=== PATIENT | male | born 1950 | race Caucasian/White ===

== ENCOUNTER 2019-11-15 11:17 | Inpatient (IN) | payer OTHER, SELFPAY ==
[2019-11-15] VITALS (18 sets, daily range): BP systolic 126–179; BP diastolic 65–85; PULSE 70–104; RESP 16–18; TEMP 36.6–36.7; O2SAT 96–98; BMI 25.2
--- NOTE | 2019-11-15 11:36 | DI.US.S_ITS ---
PROCEDURE: US PERIPH VENOUS LOW EXTREM LT INDICATIONS: LEFT LEG SWELLING TECHNIQUE: Real-time imaging, as well as color and pulse Doppler interrogation, were performed of the lower extremity deep veins from the inguinal ligament to the popliteal fossa. COMPARISON: [facility], , [employer], 12/15/2011, 11:23. FINDINGS: The common femoral, femoral and popliteal veins are normally compressible, and free of intraluminal thrombus. Color and pulse Doppler demonstrate normal phasic intraluminal flow. There is normal augmentation response to distal compression maneuver. Note is made of marked soft tissue edema. IMPRESSION: No DVT in the left lower extremity. Dictated by: Karuna Gunderson M.D. on 11/15/2019 at 12:31 Approved by: Karuna Gunderson M.D. on 11/15/2019 at 12:40
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
[2019-11-15 11:55] LABS: Add Manual Diff / Slide Review NO; Basophils Absolute Auto 0 /uL (0-100); Basophils Percent Auto 0.4 % (0-2); Eosinophils Absolute Auto 0 /uL (0-450); Eosinophils Percent Auto 0.5 % (2-4); Hematocrit 38.2 % (41-53); Hemoglobin 13.1 g/dL (13.5-17.5); Lymphocytes Absolute Auto 1600 /uL (1100-4500); Lymphocytes Percent Auto 17.9 % (25-40); Mean Corpuscular HGB Conc 34.3 % (30-36); Mean Corpuscular Hemoglobin 34.2 PG (26-34); Mean Corpuscular Volume 99.7 fL (80-100); Monocytes Absolute Auto 1600 /uL (0-900); Monocytes Percent Auto 17.6 % (3-14); Neutrophils Absolute Auto 5700 /uL (1500-7000); Neutrophils Percent Auto 63.6 % (50-75); Platelet Count 148 X10^3/uL (150-400); Red Blood Cell Count 3.83 X10^6/uL (4.5-5.9); Red Cell Distribution Width 12.9 % (11.6-14.8)
[2019-11-15 11:57] LABS: Alanine Aminotransferase 25 IU/L (<50); Albumin 3.8 g/dL (3.5-5.0); Albumin Globulin Ratio 1.1 (1.0-2.8); Alkaline Phosphatase 111 U/L (38-126); Aspartate Aminotransferase 47 IU/L (17-59); BUN Creatinine Ratio 15.1 (6-22); Bilirubin Total 0.7 mg/dL (0.2-1.3); Blood Urea Nitrogen 11 mg/dL (9-20); Calcium 9.4 mg/dL (8.4-10.2); Carbon Dioxide 24 mmol/L (22-32); Chloride 96 mmol/L (98-107); Estimated Glomerular Filt Rate > 60.0 mL/min (>60); Globulin 3.4 g/dL (1.7-4.1); Glucose 127 mg/dL (80-110); HEMOLYSIS < 15 (0-50); Lactate (Lactic Acid) 2.2 mmol/L (0.7-2.1); Sodium 128 mmol/L (137-145); Total Protein 7.2 g/dL (6.3-8.2)
[2019-11-15] MEDS: SODIUM CHLORIDE 0.9% 1,000 ML 1000 ML IV (12:01)
[2019-11-15] MEDS: VANCOMYCIN 1,500 MG/300 ML FROZ.PIGGY 200 MG IV (12:02)
[2019-11-15 12:17] LABS: Procalcitonin 0.27 ng/mL (<0.5)
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
[2019-11-15 13:41] LABS: Reflexed Lactate in 2 Hours Y
[2019-11-15 14:51] LABS: Lactate 2HR (Lactic Acid Rflx) 1.1 mmol/L (0.7-2.1)
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
[2019-11-15] MEDS: DEXTROSE 5%-LACTATED RINGERS 1,000 ML 100 ML IV (18:54)
[2019-11-15] MEDS: CEFTRIAXONE 2 GM/50 ML FROZ.PIGGY IV (18:54)
[2019-11-16] VITALS (13 sets, daily range): BP systolic 149–165; BP diastolic 79–92; PULSE 71–81; RESP 16–19; TEMP 35.9–37.1; O2SAT 96–98
[2019-11-16] MEDS: DEXTROSE 5%-LACTATED RINGERS 1,000 ML 100 ML IV (05:16)
[2019-11-16 06:29] LABS: Bacteria Urine None Seen; RBC Urine None Seen (0-5/HPF); WBC Urine None Seen (0-5/HPF)
[2019-11-16 06:41] LABS: Appearance Urine UA CLEAR; Bilirubin Urine UA NEGATIVE (NEGATIVE); Color Urine UA YELLOW; Glucose Urine UA NEGATIVE (Negative); Ketones Urine UA NEGATIVE (NEGATIVE); Leukocyte Esterase Urine UA NEGATIVE (NEGATIVE); Nitrite Urine UA NEGATIVE (Negative); Occult Blood Urine UA NEGATIVE (Negative); Protein Urine UA NEGATIVE (Negative)
[2019-11-16 06:46] LABS: Culture Indicated Urine Cult Not Indicated; Urine Comments Microscopic Normal
[2019-11-16] MEDS: ENOXAPARIN 40 MG/0.4 ML SYRINGE SUBCUT (09:18)
[2019-11-16] MEDS: lisinopriL 20 MG TABLET 40 MG PO (09:18)
--- NOTE | 2019-11-16 11:03 | CM.DANOTE ---
Patient is a 68 year old male who was admitted on 11/15/19 for Swollen leg. Pt has [facility] for insurance and his PCP is not listed. EMR was reviewed. Per MD, pt with a hx of arm amputation, skin graft, and blindness from his service in the in [place]. Pt currently admitted for cellulitis and on IV-Abx with some progress in redness but now has some leg swelling. SW met bedside with pt and explained role and pt confirms that he lives at home in [place] with his and is independent with ADL's at baseline and does not use equipment to ambulate other than his white cane he uses due to being blind. Pt's spouse drives and provides assist when needed with chores/shopping/meds but pt quite active and independent. Pt has a hx of cellulitis but not for about 8 years. Pt denies any hx of SNF and his is his DPOA. Pt preference is home with assist once IV-Abx can be changed to orals. Per MD, anticipate possible d/c tomorrow on oral abx if medically stable but some concern in regards to potential new leg swelling. Plan: SW to follow closely later today when spouse bedside and MD will further discuss current leg swelling to determine if concerning or more patient's baseline towards plan of home with spouse when medically stable. SW to follow for any further identified discharge planning needs. MENDEL Astudillo Discharge Planning/Care Management CM Discharge Assessment Start: 11/16/19 11:01 Freq: Status: Active Protocol: Document 11/16/19 11:01 (Rec: 11/16/19 11:03 [id number]) Discharge Planning Assessment Assigned Piano Refinisher MENDEL Boggs DPOA/Assigned Designee Name spouse Alondra Contact Information [phone] Advance Directives? No Advance Directives on File No History Provided By Patient,Medical Record Has Patient been admitted in last 30 No days? Prior Living Arrangements House Household Members significant other Type of transporation used prior to Relies on Others admit Comment Spouse drives as pt is legally blind Independent with ADL's Yes Is patient alert and oriented? Yes Needs Assistance With Managing Medications,Home Chores / Shopping Caregiver for Another No DME Already Rented / Owned Cane Comment White cane for ambulation due to blindness Barriers to Discharge No Discharge Plan Home Transportation Arrangement Spouse will be bedside later today and available for transport when pt stable for d /c. Referrals Initiated None needed Review Status In Process Please Provide Date Initial DC 11/16/19 Assessment Was Performed Next Review Type Continued Stay Review
--- NOTE | 2019-11-16 12:21 | P.PN_ITS ---
Subjective Subjective Date Patient Seen: 11/16/19 Interval history: Patient reports pain in the leg has improved. He continues to have significant swelling in the left lower extremity. He indicates that this is acute related to his cellulitis and that typically he does not have the same degree of swelling as he does now. He has had no fever or chills. He has had no diarrhea. The redness along the left leg has improved. Exam Vital Signs (past 8 hours): - 11/16/19 05:03 11/16/19 06:00 11/16/19 07:35 Temperature 96.6 F L 97.2 F L Pulse Rate 72 71 Respiratory Rate 18 16 Blood Pressure 159/86 H 163/90 H Pulse Oximetry 96 96 96 11/16/19 09:05 11/16/19 09:18 11/16/19 11:00 Temperature 98.7 F Pulse Rate 75 Respiratory Rate 16 Blood Pressure 163/90 H 156/92 H Pulse Oximetry 96 98 Oxygen Delivery Method Room Air Oxygen Flow Rate 0 Narrative Exam Narrative: Pleasant gentleman in no obvious distress Lungs: Clear to auscultation Cardiac exam: Regular rate and rhythm normal S1-S2 Abdomen: Soft nontender nondistended Left lower extremity with 3+ pitting edema compared to the right Skin exam decreased erythema, warmth still on the left anterior rodriges, and lateral thigh, less indurated today than yesterday. Objective Labs Result Diagrams: 11/15/19 11:30 11/15/19 11:30 Labs: Laboratory Results - last 24 hr 11/15/19 11/16/19 14:20 06:10 Lactate 1.1 Urine Color Yellow Urine Appearance Clear Urine pH 7.0 Ur Specific [place] 1.010 Urine Protein Negative Urine Glucose (UA) Negative Urine Ketones Negative Urine Occult Blood Negative Urine Nitrate Negative Urine Bilirubin Negative Urine Urobilinogen 2.0 H Ur Leukocyte Esterase Negative Urine RBC None seen Urine WBC None seen Urine Bacteria None seen Ur Culture Indicated? Cult not indicated Micro UA Comment Microscopic normal Assessment & Plan Assessment & Plan narrative: Impression 1. 68-year-old male admitted to the hospital with left lower extremity cellulitis -patient presented with an initial lactate of 2, repeat lactate of 1, no ot her end-organ damage to suggest severe sepsis -patient continues on vancomycin and ceftriaxone which is improving they cellulitis -ultrasound of the left lower extremity negative for DVT -will continue leg elevation 2. Hypertension -will continue lysine -patient indicates he is on Cardizem will obtain correct dosing and adjust accordingly 3. Hyponatremia, present on admission -without prior sodium levels unclear whether this is acute or chronic -will obtain serum osmolality, Hep-Lock IV fluids, repeat sodium in the morning, consider fluid restriction if hypotonic hyponatremia is found 4. 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 Will continue DVT prophylaxis
[2019-11-16] MEDS: SODIUM CHLORIDE 0.9% FLUSH 10 ML IV (18:38)
[2019-11-16] MEDS: CEFTRIAXONE 2 GM/50 ML FROZ.PIGGY IV (18:38)
[2019-11-16] MEDS: dilTIAZem CD 120 MG CAP PO (18:43)
[2019-11-17] VITALS (7 sets, daily range): BP systolic 149–162; BP diastolic 76–90; PULSE 69–90; RESP 16–18; TEMP 36.3–36.8; O2SAT 94–97
[2019-11-17 06:26] LABS: BUN Creatinine Ratio 11.9 (6-22); Blood Urea Nitrogen 7 mg/dL (9-20); Calcium 9.5 mg/dL (8.4-10.2); Carbon Dioxide 29 mmol/L (22-32); Chloride 98 mmol/L (98-107); Estimated Glomerular Filt Rate > 60.0 mL/min (>60); Glucose 101 mg/dL (80-110); HEMOLYSIS < 15 (0-50); Potassium 4.3 mmol/L (3.4-5.1); Sodium 132 mmol/L (137-145)
[2019-11-17 06:45] LABS: Acinetobacter baumannii Not Detected (Not Detect); Candida albicans Not Detected (Not Detect); Candida glabrata Not Detected (Not Detect); Candida krusei Not Detected (Not Detect); Candida parapsilosis Not Detected (Not Detect); Candida tropicalis Not Detected (Not Detect); E. coli Not Detected (Not Detect); Enterobacter cloacae complex Not Detected (Not Detect); Enterobacteriaceae species Not Detected (Not Detect); Enterococcus species Not Detected (Not Detect); Haemophilus influenzae Not Detected (Not Detect); Listeria monocytogenes Not Detected (Not Detect); Neisseria meningitidis Not Detected (Not Detect); Proteus species Not Detected (Not Detect); Pseudomonas aeruginosa Not Detected (Not Detect); Serratia marcescens Not Detected (Not Detect); Staphylococcus species Not Detected (Not Detect); Streptococcus agalactiae (Gr B Not Detected (Not Detect); Streptococcus pneumonia Not Detected (Not Detect); Streptococcus pyogenes (Gr A) Not Detected (Not Detect); Streptococcus species Not Detected (Not Detect)
--- NOTE | 2019-11-17 06:53 | PC.NURSE ---
anerobic gram variable rods - lab notes possible contamination. Reported to WINSTON Cade. No new orders.
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
[2019-11-17] MEDS: dilTIAZem CD 120 MG CAP PO (08:46)
[2019-11-17] MEDS: ENOXAPARIN 40 MG/0.4 ML SYRINGE SUBCUT (08:46)
[2019-11-17] MEDS: lisinopriL 20 MG TABLET 40 MG PO (08:46)
--- NOTE | 2019-11-17 11:47 | PC.NURSE ---
Pt is dressed and ready for discharge home with Spouse Alondra. IV has been removed. Went over d/c instructions with Pt and Spouse-discussed d/c meds, time of last dose, reviewed stroke education, and low sodium/low fat diet. Pt and Spouse deny further questions and were taken out via w/c by [facility] to pov with all belongings.
[2019-11-18 15:34] LABS: Osmolality, Serum 268 mOsmol/kg (280-301)
== END 2019-11-17 11:49 | disposition home or self-care (01) | DRG 603 ==
LOC: ED 14:33 → AC 15:37
PROVIDERS: Admitting Provider Internal Medicine; Emergency Provider Nurse Practitioner; Referring Provider Nurse Practitioner; Visit Provider Internal Medicine
DX: L03.116 Cellulitis of left lower limb (principal); E87.1 Hypo-osmolality and hyponatremia; H54.3 Unqualified visual loss, both eyes; I10 Essential (primary) hypertension; R60.0 Localized edema; Z89.202 Acquired absence of left upper limb, unspecified level; Z87.891 Personal history of nicotine dependence
CPT/HCPCS: 36415; 36592; 80048; 80053; 81001; 83605; 83930; 84145; 85025; 87040; 87077; 87150; 87205; 93971; 96365; 96366; 99284; J0696; J1650; J7121

== ENCOUNTER → 2020-10-16 14:45 | Outpatient (CLI) | payer MEDICARE, OTHER, SELFPAY ==
[2019-11-15 16:28] VITALS: BMI 25.2
[2020-10-16] MEDS: COVID-19 VACC, Ad26(JANSSEN)/PF 0.5 ML IM (14:52)
== END ==
PROVIDERS: Visit Provider Internal Medicine
DX: Z23 Encounter for immunization (principal)
CPT/HCPCS: 0031A; 91303

== ENCOUNTER 2021-10-13 15:48 | Emergency (ER) | payer MEDICARE, OTHER, SELFPAY ==
[2019-11-15 16:28] VITALS: BMI 25.2
[2021-10-13 15:54] VITALS: BP 181/91; PULSE 96; RESP 20; TEMP 36.4; O2SAT 96
--- NOTE | 2021-10-13 15:57 | DI.CT.S_ITS ---
PROCEDURE: CT HEAD/BRAIN WO CON INDICATIONS: fall TECHNIQUE: Noncontrast 4.5 mm thick angled axial sections acquired from the foramen magnum to the vertex, with coronal and sagittal reformats. For radiation dose reduction, the following was used: automated exposure control, adjustment of mA and/or kV according to patient size. COMPARISON: None. FINDINGS: Image quality: Excellent. CSF spaces: Basal cisterns are patent. No extra-axial fluid collections. The ventricles are symmetric in size and shape. Brain: No intracranial bleeds or masses. There are old lacunar infarct in the left basal ganglia. There is moderate cerebral volume loss for age, with resultant ventricular and sulcal prominence. There are moderate periventricular and deep white matter chronic small vessel ischemic changes. There is intracranial internal carotid artery atherosclerosis. Skull and face: Calvarium and visualized facial bones appear intact, without suspicious lesions. Left frontal scalp laceration and contusion. Abnormal left globe. Sinuses: Visualized sinuses are clear. Fluid in mastoids bilaterally. IMPRESSION: 1. No acute intracranial abnormalities. 2. Cerebral volume loss and chronic microvascular ischemic changes. 3. Fluid in mastoids bilaterally. Recommend clinical correlation for mastoiditis. Dictated by: Karuna Gunderson M.D. on 10/13/2021 at 16:41 Approved by: Karuna Gunderson M.D. on 10/13/2021 at 16:44
--- NOTE | 2021-10-13 15:59 | DI.RAD.S_ITS ---
PROCEDURE: XR RIBS LT MIN 3V W CXR1V INDICATIONS: fall TECHNIQUE: 2 views of the left ribs were acquired, along with a single view chest. COMPARISON: None. FINDINGS: Surgical changes and devices: None. Bones and chest wall: Multiple rib fractures are present involving the left 4th, 5th, 6th, 8th and 9th ribs, most likely chronic. No definitive acute fractures. No suspicious bony lesions. Partial amputation of the left upper extremity. Multiple metallic artifacts are seen in left shoulder. Overlying soft tissues appear unremarkable. Lungs and pleura: No pleural effusions or pneumothorax. Lungs appear clear. Mediastinum: Mediastinal contours appear normal. Heart size is normal. IMPRESSION: 1. Multiple old left rib fractures are present. No definitive acute rib fractures. Dictated by: Karuna Gunderson M.D. on 10/13/2021 at 16:48 Approved by: Karuna Gunderson M.D. on 10/13/2021 at 16:51
== END 2021-10-13 18:34 | disposition left against medical advice (07) ==
PROVIDERS: Emergency Provider Emergency Medicine
DX: R51.9 Headache, unspecified (principal); R07.81 Pleurodynia; R11.0 Nausea; R42 Dizziness and giddiness; W19.XXXA Unspecified fall, initial encounter
CPT/HCPCS: 70450; 71101; 99281

== ENCOUNTER 2021-11-01 10:41 | Emergency (ER) | payer MEDICARE, OTHER, SELFPAY ==
[2019-11-15 16:28] VITALS: BMI 25.2
[2021-11-01 10:56] VITALS: BP 161/74; PULSE 79; RESP 16; TEMP 36.7; O2SAT 96; BMI 25.0
--- NOTE | 2021-11-01 11:18 | DI.US.S_ITS ---
PROCEDURE: [facility] VENOUS LOW EXTREM LT INDICATIONS: SWELLING TECHNIQUE: Real-time imaging, as well as color and pulse Doppler interrogation, were performed of the lower extremity deep veins from the inguinal ligament to the popliteal fossa. COMPARISON: [facility], [facility] VENOUS LOW EXTREM LT, 11/15/2019, 12:08. FINDINGS: The common femoral, femoral and popliteal veins are normally compressible, and free of intraluminal thrombus. Color and pulse Doppler demonstrate normal phasic intraluminal flow. There is normal augmentation response to distal compression maneuver. IMPRESSION: No left lower extremity deep vein thrombosis. Dictated by: Jen Juan M.D. on 11/01/2021 at 11:54 Approved by: Jen Juan M.D. on 11/01/2021 at 11:55
[2021-11-01 12:00] VITALS: BP 176/79; PULSE 89; RESP 19; TEMP 36.9; O2SAT 99
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
== END 2021-11-01 12:48 | disposition home or self-care (01) ==
PROVIDERS: Emergency Provider Emergency Medicine
DX: L03.116 Cellulitis of left lower limb (principal); Z89.202 Acquired absence of left upper limb, unspecified level
CPT/HCPCS: 93971; 99283

== ENCOUNTER 2021-11-11 11:20 | Emergency (ER) | payer MEDICARE, OTHER, SELFPAY ==
[2019-11-15 16:28] VITALS: BMI 25.2
[2021-11-11 11:24] VITALS: BP 158/74; PULSE 86; RESP 14; TEMP 36.4; O2SAT 95; BMI 24.8
[2021-11-11 11:52] VITALS: PULSE 91; O2SAT 94
[2021-11-11 11:53] VITALS: BP 173/86; PULSE 86; O2SAT 95
--- NOTE | 2021-11-11 12:25 | ED_ITS ---
HPI - Skin/Abscess/Foreign Bdy <Haroon Red PA-C - Last Filed: 11/11/21 14:08> General Chief complaint: Skin/Abscess/Foreign Body Stated complaint: Antibiotics didn't work- ref back by Tammy Time Seen by Provider: 11/11/21 12:14 Source: patient Mode of arrival: Ambulatory Limitations: no limitations History of Present Illness HPI narrative: This is a 7-year-old male presenting to the emergency department due to left lower extremity swelling worsening roughly 2 weeks ago although see states that he has a chronic history of similar symptoms for last 53 years. On record review patient was seen here approximately 2 weeks ago and had a ultrasound to checked for DVT which was negative and prescribed Keflex antibiotics. Patient states that he was instructed to return if the antibiotics were ineffective which is causing him to return today. Denies any chest pain, shortness of breath, fevers, or discharge from the area or any other concerning signs or symptoms. Related Data Home Medications Medication Instructions Recorded Confirmed lisinopril 40 mg tablet 40 mg PO DAILY 11/15/19 11/15/19 diltiazem HCl 120 mg capsule,24 120 mg PO DAILY 11/16/19 11/16/19 hr,extended release Previous Rx's Medication Instructions Recorded furosemide 20 mg tablet (Lasix) 20 mg PO BID 14 days #28 tabs 11/11/21 Allergies Allergy/AdvReac Type Severity Reaction Status Date / Time No Known Drug Allergies Allergy Verified 11/11/21 11:24 <Carlie Munoz DO - Last Filed: 11/12/21 07:31> History of Present Illness HPI narrative: This is a 70-year-old male presenting to the emergency department due to left lower extremity swelling worsening roughly 2 weeks ago although see states that he has a chronic history of similar symptoms for last 53 years. On record review patient was seen here approximately 2 weeks ago and had a ultrasound to checked for DVT which was negative and prescribed Keflex antibiotics. Patient states that he was instructed to return if the antibiotics were ineffective which is causing him to return today. Denies any chest pain, shortness of breath, fevers, or discharge from the area or any other concerning signs or symptoms. Review of Systems <Haroon Red PA-C - Last Filed: 11/11/21 14:08> Review of Systems Narrative: GENERAL: Denies chills, fatigue, malaise, fever, sweats. HEENT: Denies sinus pain, ear pain, sore throat, difficulty swallowing, dizziness. RESPIRATORY: Denies dyspnea, cough, wheezing, hemoptysis, sputum. CARDIOVASCULAR: Denies chest pain, palpitations, orthopnea, edema, GASTROINTESTINAL: Denies nausea, vomiting, abdominal pain, diarrhea, constipation, melena. : Denies dysuria, frequency, incontinence, hematuria, urinary retention. MUSCULOSKELETAL: denies weakness, joint pain, or bony pain. Swelling to left lower extremity SKIN: Denies rash, skin lesions, or other NEUROLOGIC: Denies weakness, headache, numbness, change in speech, confusion, seizures, incoordination. PSYCHIATRIC: No concerning psychosocial issues. 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 HEAD: Atraumatic. Normocephalic. EYES: Pupils equal round and reactive. Extraocular motions intact. No scleral icterus. No injection or drainage. ENT: Nose without bleeding, purulent drainage. Throat without erythema, tonsillar hypertrophy or exudate. Airway patent. NECK: Trachea midline. Non tender CARDIOVASCULAR: Regular rate and rhythm without murmurs, gallops, or rubs. RESPIRATORY: Clear to auscultation. Breath sounds equal bilaterally. No wheezes, rales, or rhonchi. GASTROINTESTINAL: Abdomen soft, non-tender, nondistended. EXTREMITIES: Left lower extremity has 3+ pitting edema. Minimal erythema and cool to the touch. No significant focal tenderness. DP and PT pulses 2+ bilaterally. BACK: Nontender without deformity or crepitance. No flank tenderness. NEURO: AOx3. SKIN: No rash or erythema of visible areas Initial Vital Signs Initial Vital Signs: Vital Signs Temperature 97.5 F L 11/11/21 11:24 Pulse Rate 86 11/11/21 11:24 Respiratory Rate 14 11/11/21 11:24 Blood Pressure 158/74 H 11/11/21 11:24 Pulse Oximetry 95 11/11/21 11:24 Oxygen Delivery Method 11/11/21 11:24 <Carlie Munoz DO - Last Filed: 11/12/21 07:31> Initial Vital Signs Initial Vital Signs: Vital Signs Temperature 97.5 F L 11/11/21 11:24 Pulse Rate 86 11/11/21 11:24 Respiratory Rate 14 11/11/21 11:24 Blood Pressure 158/74 H 11/11/21 11:24 Pulse Oximetry 95 11/11/21 11:24 Oxygen Delivery Method 11/11/21 11:24 Course <Haroon Red PA-C - Last Filed: 11/11/21 14:08> Orders Ordered: ED Orders 11/11/21 12:45 BNP [NT-proBNP (BNP-Adult 18+)] Stat CBC Auto Diff [Complete Blood Count AUTO DIFF] Stat CMP [Comprehensive Metabolic Panel] Stat Lactate (Lactic Acid) Stat Procalcitonin Stat Vital Signs Vital signs: Vital Signs - 8 hr 11/11/21 11:24 11/11/21 11:52 11/11/21 11:53 Temperature 97.5 F L Pulse Rate 86 91 H Respiratory Rate 14 Blood Pressure 158/74 H 173/86 H Pulse Oximetry 95 94 Oxygen Delivery Method Room Air 11/11/21 11:53 Temperature Pulse Rate 86 Respiratory Rate Blood Pressure Pulse Oximetry 95 Oxygen Delivery Method <DO Maylin Baird Last Filed: 11/12/21 07:31> Orders Ordered: ED Orders 11/11/21 12:45 BNP [NT-proBNP (BNP-Adult 18+)] Stat CBC Auto Diff [Complete Blood Count AUTO DIFF] Stat CMP [Comprehensive Metabolic Panel] Stat Lactate (Lactic Acid) Stat Procalcitonin Stat Vital Signs Vital signs: Vital Signs - 8 hr 11/11/21 11:24 11/11/21 11:52 11/11/21 11:53 Temperature 97.5 F L Pulse Rate 86 91 H Respiratory Rate 14 Blood Pressure 158/74 H 173/86 H Pulse Oximetry 95 94 Oxygen Delivery Method Room Air 11/11/21 11:53 Temperature Pulse Rate 86 Respiratory Rate Blood Pressure Pulse Oximetry 95 Oxygen Delivery Method MDM - Skin/Abscess/Foreign Bdy <Haroon Red PA-C - Last Filed: 11/11/21 14:08> Lab Data Result diagrams: 11/11/21 13:07 11/11/21 13:07 Labs: Lab Results 11/11/21 11/11/21 11/11/21 Range/Units 13:07 13:07 13:07 WBC 4.8 (4.5-11.0) X10^3/uL RBC 3.79 L (4.5-5.9) X10^6/uL Hgb 13.2 L (13.5-17.5) g/dL Hct 39.1 L (41-53) % MCV 103.2 H (80-100) fL MCH 35.0 H (26-34) PG MCHC 33.9 (30-36) % RDW 13.6 (11.6-14.8) % Plt Count 91 L (150-400) X10^3/uL Neut % (Auto) 66.3 (50-75) % Lymph % (Auto) 19.2 L (25-40) % Boyle % (Auto) 12.4 (3-14) % Eos % (Auto) 1.5 L (2-4) % Baso % (Auto) 0.6 (0-2) % Neut # (Auto) 3200 (9302-7646) /uL Lymph # (Auto) 900 L (9748-7534) /uL Boyle # (Auto) 600 (0-900) /uL Eos # (Auto) 100 (0-450) /uL Baso # (Auto) 0 (0-100) /uL Sodium 130 L (137-145) mmol/L Potassium 4.2 (3.4-5.1) mmol/L Chloride 98 (98-107) mmol/L Carbon Dioxide 23 (22-32) mmol/L BUN 13 (9-20) mg/dL Creatinine 0.87 (0.66-1.25) mg/dL Estimated GFR > 60 (>60) mL/min BUN/Creatinine Ratio 14.9 (6-22) Glucose 120 H (80-110) mg/dL Lactate 1.1 (0.7-2.1) mmol/L Calcium 9.3 (8.4-10.2) mg/dL Total Bilirubin 1.2 (0.2-1.3) mg/dL AST 98 H (17-59) IU/L ALT 50 H (<50) IU/L Alkaline Phosphatase 134 H (38-126) U/L NT-Pro-B Natriuret Pep 132 H (<125) pg/mL Total Protein 7.3 (6.3-8.2) g/dL Albumin 4.1 (3.5-5.0) g/dL Globulin 3.2 (1.7-4.1) g/dL Albumin/Globulin Ratio 1.3 (1.0-2.8) Procalcitonin 0.25 (<0.5) ng/mL MDM Narrative Medical decision making narrative: 70-year-old male presents emergency department due to continued left lower extremity swelling. Patient was seen here 2 weeks ago where he had a negative ultrasound. Patient discharged with antibiotics for possible bacterial cellulitic infection but states that the antibiotics did not help with the left lower extremity swelling. Suspect the swelling is more due to venous insufficiency rather than a bacterial infection. Lab work ordered which was unremarkable for any signs of bacterial infection, white count within normal limits as well as lactate and procal. Patient we discharged with 20 mg Lasix b.i.d. in the hopes that this will help with the lower extremity swelling. Recommended follow-up with his primary care provider outpatient for further evaluation and management. Patient was noted to be mildly hyponatremic with a sodium level of 130 but was asymptomatic. <Carlie Munoz, DO - Last Filed: 11/12/21 07:31> Lab Data Labs: Lab Results 11/11/21 11/11/21 11/11/21 Range/Units 13:07 13:07 13:07 WBC 4.8 (4.5-11.0) X10^3/uL RBC 3.79 L (4.5-5.9) X10^6/uL Hgb 13.2 L (13.5-17.5) g/dL Hct 39.1 L (41-53) % MCV 103.2 H (80-100) fL MCH 35.0 H (26-34) PG MCHC 33.9 (30-36) % RDW 13.6 (11.6-14.8) % Plt Count 91 L (150-400) X10^3/uL Neut % (Auto) 66.3 (50-75) % Lymph % (Auto) 19.2 L (25-40) % Boyle % (Auto) 12.4 (3-14) % Eos % (Auto) 1.5 L (2-4) % Baso % (Auto) 0.6 (0-2) % Neut # (Auto) 3200 (0803-4391) /uL Lymph # (Auto) 900 L (2225-1530) /uL Boyle # (Auto) 600 (0-900) /uL Eos # (Auto) 100 (0-450) /uL Baso # (Auto) 0 (0-100) /uL Sodium 130 L (137-145) mmol/L Potassium 4.2 (3.4-5.1) mmol/L Chloride 98 (98-107) mmol/L Carbon Dioxide 23 (22-32) mmol/L BUN 13 (9-20) mg/dL Creatinine 0.87 (0.66-1.25) mg/dL Estimated GFR > 60 (>60) mL/min BUN/Creatinine Ratio 14.9 (6-22) Glucose 120 H (80-110) mg/dL Lactate 1.1 (0.7-2.1) mmol/L Calcium 9.3 (8.4-10.2) mg/dL Total Bilirubin 1.2 (0.2-1.3) mg/dL AST 98 H (17-59) IU/L ALT 50 H (<50) IU/L Alkaline Phosphatase 134 H (38-126) U/L NT-Pro-B Natriuret Pep 132 H (<125) pg/mL Total Protein 7.3 (6.3-8.2) g/dL Albumin 4.1 (3.5-5.0) g/dL Globulin 3.2 (1.7-4.1) g/dL Albumin/Globulin Ratio 1.3 (1.0-2.8) Procalcitonin 0.25 (<0.5) ng/mL Discharge Plan Departure Patient Disposition: Home Clinical Impression: Chronic venous insufficiency of lower extremity Instructions: Chronic Venous Insufficiency, DI for Edema Due to Venous Stasis Activity Restrictions/Additional Instructions: Thank you for coming to the [facility] Emergency Department today. I do not think that this is cellulitic or bacterial infection as your lab work came back unremarkable and the antibiotics did not treat your symptoms. I suspect as we discussed this is due to a chronic venous insufficiency possibly due to your left lower extremity injuries during the [place]. Please read the attached information for which he can manage her symptoms. Please continue to use the compression stockings. Please try this diuretic that is prescribed which may help drain some of the fluid in her left lower extremity. I recommended follow- up with the primary care provider for a more advanced workup for possible causes of the venous insufficiency. I hope you feel better soon. Prescriptions: New furosemide [Lasix] 20 mg tablet 20 mg PO BID 14 Days Qty: 28 0RF No Action lisinopril 40 mg Tablet 40 mg PO DAILY diltiazem HCl 120 mg Capsule,Extended Release 24 Hr 120 mg PO DAILY Referrals: Anish Reyes ARNP [Primary Care Provider] - Visit Report Forms: Patient Portal/API <Carlie Munoz DO - Last Filed: 11/12/21 07:31> Cosign ED Attending Cosmayraature Attestation: I was immediately available in the department for consultation. Documentation has been reviewed. I agree with assessment and plan.
[2021-11-11 13:19] LABS: Add Manual Diff / Slide Review NO; Basophils Absolute Auto 0 /uL (0-100); Basophils Percent Auto 0.6 % (0-2); Eosinophils Absolute Auto 100 /uL (0-450); Eosinophils Percent Auto 1.5 % (2-4); Hematocrit 39.1 % (41-53); Hemoglobin 13.2 g/dL (13.5-17.5); Lymphocytes Absolute Auto 900 /uL (1100-4500); Lymphocytes Percent Auto 19.2 % (25-40); Mean Corpuscular HGB Conc 33.9 % (30-36); Mean Corpuscular Volume 103.2 fL (80-100); Monocytes Absolute Auto 600 /uL (0-900); Monocytes Percent Auto 12.4 % (3-14); Neutrophils Absolute Auto 3200 /uL (1500-7000); Neutrophils Percent Auto 66.3 % (50-75); Platelet Count 91 X10^3/uL (150-400); Red Blood Cell Count 3.79 X10^6/uL (4.5-5.9); Red Cell Distribution Width 13.6 % (11.6-14.8); White Blood Cell Count 4.8 X10^3/uL (4.5-11.0)
[2021-11-11 13:29] LABS: Lactate (Lactic Acid) 1.1 mmol/L (0.7-2.1)
[2021-11-11 13:30] LABS: Alanine Aminotransferase 50 IU/L (<50); Albumin 4.1 g/dL (3.5-5.0); Albumin Globulin Ratio 1.3 (1.0-2.8); Alkaline Phosphatase 134 U/L (38-126); Aspartate Aminotransferase 98 IU/L (17-59); BUN Creatinine Ratio 14.9 (6-22); Bilirubin Total 1.2 mg/dL (0.2-1.3); Blood Urea Nitrogen 13 mg/dL (9-20); Calcium 9.3 mg/dL (8.4-10.2); Carbon Dioxide 23 mmol/L (22-32); Chloride 98 mmol/L (98-107); Estimated Glomerular Filt Rate > 60 mL/min (>60); Globulin 3.2 g/dL (1.7-4.1); Glucose 120 mg/dL (80-110); HEMOLYSIS < 15 (0-50); Potassium 4.2 mmol/L (3.4-5.1); Sodium 130 mmol/L (137-145); Total Protein 7.3 g/dL (6.3-8.2)
[2021-11-11 13:39] LABS: NT-proBNP (BNP-Adult 18+) 132 pg/mL (<125)
[2021-11-11 13:47] LABS: Procalcitonin 0.25 ng/mL (<0.5)
[2021-11-11 14:10] VITALS: PULSE 74
[2021-11-11 14:12] VITALS: BP 144/67; PULSE 76; RESP 18; O2SAT 95
== END 2021-11-11 14:50 | disposition home or self-care (01) ==
PROVIDERS: Emergency Provider Physician Assistant Medical; PCP Nurse Practitioner Family
DX: I87.2 Venous insufficiency (chronic) (peripheral) (principal)
CPT/HCPCS: 80053; 83605; 83880; 84145; 85025; 99281; 99283

== ENCOUNTER 2022-06-17 13:38 | Emergency (ER) | payer MEDICARE, OTHER, SELFPAY ==
[2019-11-15 16:28] VITALS: BMI 25.2
[2022-06-17] VITALS (19 sets, daily range): BP systolic 87–198; BP diastolic 51–106; PULSE 73–152; RESP 10–42; TEMP 36.5; O2SAT 97–99; BMI 25.0
--- NOTE | 2022-06-17 13:50 | DI.RAD.S_ITS ---
PROCEDURE: XR SHOULDER LT MIN 2V INDICATIONS: Fall with injuries TECHNIQUE: 3 views of the shoulder were acquired. COMPARISON: None. FINDINGS: Bones: Amputation of the proximal humeral shaft. [id number] acromioclavicular and glenohumeral arthrosis. Suspected minimally displaced distal clavicle fracture. Soft tissues: Numerous small radiodensities, possibly within soft tissues are external projecting over the left upper extremity. IMPRESSION: Suspected nondisplaced distal clavicle fracture. Numerous small radiodensities projecting over the left upper extremity. Dictated by: Yan Correia M.D. on 06/17/2022 at 14:26 Approved by: Yan Correia M.D. on 06/17/2022 at 14:28
--- NOTE | 2022-06-17 13:50 | DI.RAD.S_ITS ---
PROCEDURE: XR HAND RT MIN 3V INDICATIONS: Fall with injuries TECHNIQUE: 3 views of the hand(s) acquired. COMPARISON: None. FINDINGS: Bones: Ring finger proximal phalanx is obscured by the ring. Scattered arthrosis, particularly at the base of the thumb. There are small age-indeterminate bone fragment adjacent to the 1st interphalangeal joint and 4th finger dorsal surface DIP joint. Likely nonacute deformity/irregular appearance of the 4th finger distal tuft. Correlate for pain in these regions. Soft tissues: No suspicious calcifications. IMPRESSION: No displaced fracture. No dislocation. Small age-indeterminate bone fragments and degenerative changes as above. If there is high concern for occult injury, consider repeat radiography or cross-sectional imaging. Dictated by: Yan Correia M.D. on 06/17/2022 at 14:28 Approved by: Yan Correia M.D. on 06/17/2022 at 14:32
--- NOTE | 2022-06-17 13:52 | DI.CT.S_ITS ---
PROCEDURE: CT HEAD/BRAIN WO CON INDICATIONS: fall, hit head, modified trauma TECHNIQUE: Noncontrast 4.5 mm thick angled axial sections acquired from the foramen magnum to the vertex, with coronal and sagittal reformats. For radiation dose reduction, the following was used: automated exposure control, adjustment of mA and/or kV according to patient size. COMPARISON: [facility], CT, CT HEAD/BRAIN WO CON, 10/13/2021, 16:06. FINDINGS: Image quality: Good CSF spaces: Basal cisterns are patent. Lateral ventricles are symmetric. Volume: Vascular calcifications. 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 Volume loss is present. These findings are moderate Brain: No intracranial hemorrhage. Paz-white differentiation is grossly maintained. Craniofacial structures: Phthisis bulbi. Mastoid effusions again seen. IMPRESSION: No acute intracranial abnormality. Dictated by: Yan Correia M.D. on 06/17/2022 at 14:52 Approved by: Yan Correia M.D. on 06/17/2022 at 14:55
--- NOTE | 2022-06-17 13:52 | DI.CT.S_ITS ---
PROCEDURE: CT CERVICAL SPINE WO CON INDICATIONS: fall, hit head, modified trauma TECHNIQUE: Noncontrast 3 mm thick sections acquired from the skull base to the T4 level. Sagittal and coronal reformats were then constructed. For radiation dose reduction, the following was used: automated exposure control, adjustment of mA and/or kV according to patient size. COMPARISON: None. FINDINGS: Image quality: Excellent. Bones: Moderate spondylosis and trace multilevel spur spondylolisthesis, with C2 on C3 and C3 on C4 anterolisthesis and C6 on C7 and C7 on T1 retrolisthesis. No definite traumatic subluxation. Vertebral body heights are well maintained, other than endplate deformities. 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 Vascular calcifications. No pathologic prevertebral soft tissue swelling. IMPRESSION: Moderate spondylotic changes without acute fracture or traumatic subluxation of the cervical spine. Dictated by: Yan Correia M.D. on 06/17/2022 at 14:55 Approved by: Yan Correia M.D. on 06/17/2022 at 14:57
--- NOTE | 2022-06-17 17:19 | ED.FALL ---
HPI - Fall <Hilary Braun PA-C - Last Filed: 06/17/22 20:14> General Chief Complaint: Fall Stated Complaint: fell last night, gash in lt eyebrow, tore rt hand Time Seen by Provider: 06/17/22 17:18 Source: patient Mode of arrival: Ambulatory History of Present Illness HPI Narrative: 71-year-old male history of blindness, left arm amputee, presents with concern for a fall last night. Patient's states that he had a mechanical fall. He had had a couple of drinks and because of his blindness he says he sometimes gets disoriented and ends up falling. He did not have any prodrome prior to his fall. He landed on his left shoulder and his left forehead above his left eye. No loss of consciousness, was slightly dizzy for a little while after the fall. He is not had any vomiting since the fall. Denies any persistent symptoms except for some left shoulder pain. Swelling over his left eyebrow and laceration of his left forhead/eyebrow. He denies any other complaints or concerns. He states he normally does not use any walking aids accept his white cane. 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 Well-developed patient, in mild distress. HEAD: There is an approximately 2 cm full-thickness laceration of the left lateral forehead above the left eyebrow. There is associated swelling and bruising over the left eye. Facial bones are otherwise nontender, cranial nerves are intact II-XII. Otherwise Atraumatic. Normocephalic. EYES: Pupils equal round and reactive. Extraocular motions intact. No scleral icterus. No injection or drainage. ENT: Nose without bleeding, purulent drainage. Airway patent. NECK: C-spine is nontender, T and L-spine are nontender. Trachea midline. Non tender CARDIOVASCULAR/CHEST: Regular rate and rhythm without murmurs, gallops, or rubs. There is no tenderness over the ribs or chest wall, there is tenderness over the distal clavicle on the left without crepitus or skin tenting. RESPIRATORY: Clear to auscultation. Breath sounds equal bilaterally. No wheezes, rales, or rhonchi. GASTROINTESTINAL: Abdomen nondistended. EXTREMITIES: Left arm is surgically absent at the proximal humerus, the right hand has superficial abrasions to the dorsum of the hand. Range of motion is intact and there is no bony tenderness. Normoactive range of motion of lower extremities, nontender. No edema or joint tenderness. BACK: Nontender without deformity or crepitance. No flank tenderness. NEURO: AOx3. SKIN: No rash or erythema of visible areas Initial Vital Signs Initial Vital Signs: Vital Signs Temperature 97.7 F 06/17/22 13:43 Pulse Rate 102 H 06/17/22 13:43 Respiratory Rate 18 06/17/22 13:43 Blood Pressure 183/85 H 06/17/22 13:43 Pulse Oximetry 99 06/17/22 13:43 Oxygen Delivery Method 06/17/22 13:43 <Carlie Munoz DO - Last Filed: 06/17/22 23:53> Initial Vital Signs Initial Vital Signs: Vital Signs Temperature 97.7 F 06/17/22 13:43 Pulse Rate 102 H 06/17/22 13:43 Respiratory Rate 18 06/17/22 13:43 Blood Pressure 183/85 H 06/17/22 13:43 Pulse Oximetry 99 06/17/22 13:43 Oxygen Delivery Method 06/17/22 13:43 Procedures <Hilary Braun PA-C - Last Filed: 06/17/22 20:14> Laceration Repair Laceration 1: Time of procedure: 18:10 Site: face (left forhead) Size (cm): 2 Description: linear and clean Depth: simple, single layer Local Anesthetic: lidocaine 1% (with Epi) Amount of anesthesia used (mL): 2 Pre-repair: wound explored, irrigated extensively and cleansed with chlorhexadine Skin layer closed with: nylon Skin layer suture size: 6-0 Number of sutures: 4 Technique: simple, interrupted Course <Hilary Braun PA-C - Last Filed: 06/17/22 20:14> Orders Ordered: ED Orders 06/17/22 18:39 EKG-12 Lead Stat 06/17/22 18:50 BNP [NT-proBNP (BNP-Adult 18+)] Stat Complete Blood Count AUTO DIFF Stat Comprehensive Metabolic Panel Stat MAG [Magnesium] Stat TSH [Thyroid Stimulating Hormone] Stat Troponin & CK Cardiac Panel Stat Discontinued Medications Diltiazem HCl (Diltiazem 30 Mg Tablet) 180 mg PO NOW ONE Stop: 06/17/22 18:40 Last Admin: 06/17/22 19:34 Dose: Not Given Documented By: EVELIO Diltiazem HCl (Diltiazem 5 Mg/Ml Sdv) 10 mg IV NOW ONE Stop: 06/17/22 18:42 Last Admin: 06/17/22 18:49 Dose: 10 mg Documented By: CINTHYA Diltiazem HCl (Diltiazem 5 Mg/Ml Sdv) 10 mg IV NOW ONE Stop: 06/17/22 19:05 Last Admin: 06/17/22 19:19 Dose: 10 mg Documented By: EVELIO Diltiazem HCl (Diltiazem 30 Mg Tablet) 180 mg PO NOW ONE Stop: 06/17/22 19:56 Last Admin: 06/17/22 20:10 Dose: 180 mg Documented By: EVELIO Sodium Chloride (Normal Saline 0.9%) 500 mls @ 1,000 mls/hr IV BOLUS ONE Stop: 06/17/22 20:17 Last Infusion: 06/17/22 20:19 Dose: 0 mls/hr Documented By: Admin: 06/17/22 19:51 Dose: 1,000 mls/hr Documented By: EVELIO DILTIAZEM (Diltiazem 125 Mg/125 Ml-D5w) 125 mg in 125 mls @ 5 mls/hr IV TITRATE [facility]; Protocol Last Titration: 06/17/22 22:45 Dose: 0 mg/hr, 0 mls/hr Documented By: Titration: 06/17/22 22:18 Dose: 0 mg/hr, 0 mls/hr Documented By: Admin: 06/17/22 21:26 Dose: 5 mg/hr, 5 mls/hr Documented By: EVELIO Lisinopril (Lisinopril 20 Mg Tablet) 40 mg PO NOW ONE Stop: 06/17/22 18:44 Last Admin: 06/17/22 19:16 Dose: 40 mg Documented By: EVELIO Metoprolol Tartrate (Metoprolol Tartrate 5 Mg/5 Ml Inj) 5 mg IV NOW ONE Stop: 06/17/22 19:38 Last Admin: 06/17/22 19:40 Dose: 5 mg Documented By: EVELIO Reevaluation(s) Reevaluation #1: After suturing the patient while working on gift officer noted that he is now tachycardic on rechecking vitals and more hypertensive than he was initially. She notes he is not had his noon medications today including his diltiazem and his lisinopril. Rechecked the patient and he is asymptomatic but is with a heart rate in the 140s to low 150s, cardiac monitoring applied and he appears to be likely in AFib RVR. Twelve lead ordered and plan to treat with his regular oral medication however will initiate treatment for his tachycardia with Dilt 10 mg IV to see how he responds with this. Additionally basic labs and cardiac labs obtained for further evaluation and these were not obtained on entry to the emergency department. Time: 18:45 Reevaluation #2: Initial IV diltiazem was not helpful, a 2nd IV dose administered 15 minutes later, if this does not bring his heart rate down will likely move onto Lopressor. Patient was administered his regular daily lisinopril dose. Time: 19:05 Reevaluation #3: Patient is slightly improved blood pressure of 167 systolic but persistently with HR in the high 140s in AFib RVR, Lopressor 5 mg ordered Time: 19:40 Additional Reevaluation(s): Initial metoprolol dose did bring his heart rate down slightly, bu t only to high 130s, also trying a fluid bolus 500 as I suspect he may be dehydrated and this may improve his rate, may do additional metoprolol as well. 1950 Vital Signs Vital signs: Vital Signs - 8 hr 06/17/22 18:49 06/17/22 18:32 06/17/22 18:38 Pulse Rate 143 H 143 H 147 H Respiratory Rate 12 Blood Pressure 191/106 H Pulse Oximetry 98 98 06/17/22 18:38 06/17/22 19:19 06/17/22 19:00 Pulse Rate 145 H 145 H Respiratory Rate 10 L Blood Pressure 191/106 H Pulse Oximetry 06/17/22 19:30 06/17/22 19:35 06/17/22 19:35 Pulse Rate 152 H 147 H Respiratory Rate 40 H 24 Blood Pressure 167/84 H Pulse Oximetry 97 06/17/22 19:43 06/17/22 19:43 06/17/22 20:00 Pulse Rate 144 H 127 H Respiratory Rate 19 38 H Blood Pressure 198/81 H Pulse Oximetry 97 97 06/17/22 20:00 06/17/22 20:13 06/17/22 20:13 Pulse Rate 132 H Respiratory Rate 19 Blood Pressure 190/93 H 164/76 H Pulse Oximetry 06/17/22 20:30 06/17/22 21:00 06/17/22 21:17 Pulse Rate 140 H 143 H 143 H Respiratory Rate 19 39 H 25 H Blood Pressure Pulse Oximetry 06/17/22 21:17 06/17/22 21:30 06/17/22 22:00 Pulse Rate 138 H 73 Respiratory Rate 13 12 Blood Pressure 135/69 Pulse Oximetry 06/17/22 22:30 06/17/22 22:41 06/17/22 22:41 Pulse Rate 76 73 Respiratory Rate 42 H 25 H Blood Pressure 87/51 L Pulse Oximetry 06/17/22 22:42 06/17/22 22:42 Pulse Rate 73 Respiratory Rate 13 16 Blood Pressure 104/53 L Pulse Oximetry <Carlie Munoz, DO - Last Filed: 06/17/22 23:53> Orders Ordered: ED Orders 06/17/22 18:39 EKG-12 Lead Stat 06/17/22 18:50 BNP [NT-proBNP (BNP-Adult 18+)] Stat Complete Blood Count AUTO DIFF Stat Comprehensive Metabolic Panel Stat MAG [Magnesium] Stat TSH [Thyroid Stimulating Hormone] Stat Troponin & CK Cardiac Panel Stat Discontinued Medications Diltiazem HCl (Diltiazem 30 Mg Tablet) 180 mg PO NOW ONE Stop: 06/17/22 18:40 Last Admin: 06/17/22 19:34 Dose: Not Given Documented By: EVELIO Diltiazem HCl (Diltiazem 5 Mg/Ml Sdv) 10 mg IV NOW ONE Stop: 06/17/22 18:42 Last Admin: 06/17/22 18:49 Dose: 10 mg Documented By: CINTHYA Diltiazem HCl (Diltiazem 5 Mg/Ml Sdv) 10 mg IV NOW ONE Stop: 06/17/22 19:05 Last Admin: 06/17/22 19:19 Dose: 10 mg Documented By: EVELIO Diltiazem HCl (Diltiazem 30 Mg Tablet) 180 mg PO NOW ONE Stop: 06/17/22 19:56 Last Admin: 06/17/22 20:10 Dose: 180 mg Documented By: EVELIO Sodium Chloride (Normal Saline 0.9%) 500 mls @ 1,000 mls/hr IV BOLUS ONE Stop: 06/17/22 20:17 Last Infusion: 06/17/22 20:19 Dose: 0 mls/hr Documented By: Admin: 06/17/22 19:51 Dose: 1,000 mls/hr Documented By: EVELIO DILTIAZEM (Diltiazem 125 Mg/125 Ml-D5w) 125 mg in 125 mls @ 5 mls/hr IV TITRATE [facility]; Protocol Last Titration: 06/17/22 22:45 Dose: 0 mg/hr, 0 mls/hr Documented By: Titration: 06/17/22 22:18 Dose: 0 mg/hr, 0 mls/hr Documented By: Admin: 06/17/22 21:26 Dose: 5 mg/hr, 5 mls/hr Documented By: EVELIO Lisinopril (Lisinopril 20 Mg Tablet) 40 mg PO NOW ONE Stop: 06/17/22 18:44 Last Admin: 06/17/22 19:16 Dose: 40 mg Documented By: EVELIO Metoprolol Tartrate (Metoprolol Tartrate 5 Mg/5 Ml Inj) 5 mg IV NOW ONE Stop: 06/17/22 19:38 Last Admin: 06/17/22 19:40 Dose: 5 mg Documented By: EVELIO Vital Signs Vital signs: Vital Signs - 8 hr 06/17/22 18:49 06/17/22 18:32 06/17/22 18:38 Pulse Rate 143 H 143 H 147 H Respiratory Rate 12 Blood Pressure 191/106 H Pulse Oximetry 98 98 06/17/22 18:38 06/17/22 19:19 06/17/22 19:00 Pulse Rate 145 H 145 H Respiratory Rate 10 L Blood Pressure 191/106 H Pulse Oximetry 06/17/22 19:30 06/17/22 19:35 06/17/22 19:35 Pulse Rate 152 H 147 H Respiratory Rate 40 H 24 Blood Pressure 167/84 H Pulse Oximetry 97 06/17/22 19:43 06/17/22 19:43 06/17/22 20:00 Pulse Rate 144 H 127 H Respiratory Rate 19 38 H Blood Pressure 198/81 H Pulse Oximetry 97 97 06/17/22 20:00 06/17/22 20:13 06/17/22 20:13 Pulse Rate 132 H Respiratory Rate 19 Blood Pressure 190/93 H 164/76 H Pulse Oximetry 06/17/22 20:30 06/17/22 21:00 06/17/22 21:17 Pulse Rate 140 H 143 H 143 H Respiratory Rate 19 39 H 25 H Blood Pressure Pulse Oximetry 06/17/22 21:17 06/17/22 21:30 06/17/22 22:00 Pulse Rate 138 H 73 Respiratory Rate 13 12 Blood Pressure 135/69 Pulse Oximetry 06/17/22 22:30 06/17/22 22:41 06/17/22 22:41 Pulse Rate 76 73 Respiratory Rate 42 H 25 H Blood Pressure 87/51 L Pulse Oximetry 06/17/22 22:42 06/17/22 22:42 Pulse Rate 73 Respiratory Rate 13 16 Blood Pressure 104/53 L Pulse Oximetry MDM - Fall <Hilary Braun PA-C - Last Filed: 06/17/22 20:14> Differential Diagnosis Differential diagnosis: Likely syncope and other (laceration, closed head injury, calvicle fracture, afib rvr) Medical Records Medical records narrative: I reviewed the patient's medical records Lab Data Lab results narrative: I reviewed the patient's labs 06/17/22 18:50 06/17/22 18:50 Labs: Lab Results 06/17/22 06/17/22 06/17/22 Range/Units 18:50 18:50 18:50 WBC 5.5 (4.5-11.0) X10^3/uL RBC 4.02 L (4.5-5.9) X10^6/uL Hgb 14.0 (13.5-17.5) g/dL Hct 40.7 L (41-53) % MCV 101.1 H (80-100) fL MCH 34.9 H (26-34) PG MCHC 34.5 (30-36) % RDW 14.5 (11.6-14.8) % Plt Count 56 L (150-400) X10^3/uL Neut % (Auto) 63.4 (50-75) % Lymph % (Auto) 18.3 L (25-40) % [place] % (Auto) 17.1 H (3-14) % Eos % (Auto) 0.7 L (2-4) % Baso % (Auto) 0.5 (0-2) % Neut # (Auto) 3500 (2715-8440) /uL Lymph # (Auto) 1000 L (7849-2926) /uL [place] # (Auto) 900 (0-900) /uL Eos # (Auto) 0 (0-450) /uL Baso # (Auto) 0 (0-100) /uL Sodium 132 L (137-145) mmol/L Potassium 4.3 (3.4-5.1) mmol/L Chloride 95 L (98-107) mmol/L Carbon Dioxide 27 (22-32) mmol/L BUN 23 H (9-20) mg/dL Creatinine 0.87 (0.66-1.25) mg/dL Estimated GFR > 60 (>60) mL/min BUN/Creatinine Ratio 26.4 H (6-22) Glucose 119 H (80-110) mg/dL Calcium 9.6 (8.4-10.2) mg/dL Magnesium 1.6 (1.6-2.3) mg/dL Total Bilirubin 1.8 H (0.2-1.3) mg/dL AST 88 H (17-59) IU/L ALT 48 (<50) IU/L Alkaline Phosphatase 122 (38-126) U/L Total Creatine Kinase 38 L (55-170) U/L CK-MB (CK-2) TNP CK-MB (CK-2) Rel Index TNP Troponin I < 0.012 (0.01-0.034) ng/mL NT-Pro-B Natriuret Pep 156 H (<125) pg/mL Total Protein 8.1 (6.3-8.2) g/dL Albumin 4.3 (3.5-5.0) g/dL Globulin 3.8 (1.7-4.1) g/dL Albumin/Globulin Ratio 1.1 (1.0-2.8) TSH (0.47-4.68) uIU/mL 06/17/22 Range/Units 18:50 WBC (4.5-11.0) X10^3/uL RBC (4.5-5.9) X10^6/uL Hgb (13.5-17.5) g/dL Hct (41-53) % MCV (80-100) fL MCH (26-34) PG MCHC (30-36) % RDW (11.6-14.8) % Plt Count (150-400) X10^3/uL Neut % (Auto) (50-75) % Lymph % (Auto) (25-40) % [place] % (Auto) (3-14) % Eos % (Auto) (2-4) % Baso % (Auto) (0-2) % Neut # (Auto) (6378-7625) /uL Lymph # (Auto) (3941-1986) /uL [place] # (Auto) (0-900) /uL Eos # (Auto) (0-450) /uL Baso # (Auto) (0-100) /uL Sodium (137-145) mmol/L Potassium (3.4-5.1) mmol/L Chloride (98-107) mmol/L Carbon Dioxide (22-32) mmol/L BUN (9-20) mg/dL Creatinine (0.66-1.25) mg/dL Estimated GFR (>60) mL/min BUN/Creatinine Ratio (6-22) Glucose (80-110) mg/dL Calcium (8.4-10.2) mg/dL Magnesium (1.6-2.3) mg/dL Total Bilirubin (0.2-1.3) mg/dL AST (17-59) IU/L ALT (<50) IU/L Alkaline Phosphatase (38-126) U/L Total Creatine Kinase (55-170) U/L CK-MB (CK-2) CK-MB (CK-2) Rel Index Troponin I (0.01-0.034) ng/mL NT-Pro-B Natriuret Pep (<125) pg/mL Total Protein (6.3-8.2) g/dL Albumin (3.5-5.0) g/dL Globulin (1.7-4.1) g/dL Albumin/Globulin Ratio (1.0-2.8) TSH 2.62 (0.47-4.68) uIU/mL Imaging Data Extremity x-ray #1: My Impression: I agree with radiologist's interpretation. Radiologist's Impression: [place] [address] XRay Report Signed Patient: Alessandro Vazquez MR#: [id number] : 1950 Acct:[id number] Age/Sex: 71 / M Date of Service: 06/17/22 Loc: ED Accession Number: [id number] ?? Procedure: XR shoulder LT min 2V Ordering Provider: Deysi Antunez D.O. PROCEDURE:? XR SHOULDER LT MIN 2V ? INDICATIONS:? Fall with injuries ? TECHNIQUE:? 3 views of the shoulder were acquired.? ? COMPARISON:? None. ? FINDINGS:? ? Bones:? Amputation of the proximal humeral shaft.? Adxu-li-feghtuck acromioclavicular and glenohumeral arthrosis. Suspected minimally displaced distal clavicle fracture. ? Soft tissues:? Numerous small radiodensities, possibly within soft tissues are external projecting over the left upper extremity. ? IMPRESSION:? Suspected nondisplaced distal clavicle fracture.? Numerous small radiodensities projecting over the left upper extremity.? ? ? Dictated by: Yan Correia M.D. on 06/17/2022 at 14:26 ? ? Approved by: Yan Correia M.D. on 06/17/2022 at 14:28?? Extremity x-ray #2: Radiologist's Impression: [address] [address] XRay Report Signed Patient: Alessandro Vazquez MR#: [id number] : 1950 Acct:[id number] Age/Sex: 71 / M Date of Service: 06/17/22 Loc: ED Accession Number: [id number] ?? Procedure: XR hand RT min 3V Ordering Provider: Deysi Antunez D.O. PROCEDURE:? XR HAND RT MIN 3V ? INDICATIONS:? Fall with injuries ? TECHNIQUE:? 3 views of the hand(s) acquired.? ? COMPARISON:? None. ? FINDINGS:? ? Bones:? Ring finger proximal phalanx is obscured by the ring.? Scattered arthrosis, particularly at the base of the thumb. ? There are small age-indeterminate bone fragment adjacent to the 1st interphalangeal joint and 4th finger dorsal surface DIP joint. Likely nonacute deformity/irregular appearance of the 4th finger distal tuft. Correlate for pain in these regions. ? Soft tissues:? No suspicious calcifications. ? ? IMPRESSION:? No displaced fracture.? No dislocation.? Small age-indeterminate bone fragments and degenerative changes as above.? If there is high concern for occult injury, consider repeat radiography or cross-sectional imaging. ? ? Dictated by: Yan Correia M.D. on 06/17/2022 at 14:28 ? ? Approved by: Yan Correia M.D. on 06/17/2022 at 14:32?? CT scan - head: Radiologist's Impression: [address] [address] [address] Scan Report Signed Patient: Alessandro Vazquez MR#: [id number] : 1950 Acct:[id number] Age/Sex: 71 / M Date of Service: 06/17/22 Loc: ED Accession Number: [id number] ?? Procedure: CT head/brain wo con Ordering Provider: Deysi Antunez D.O. PROCEDURE:? CT HEAD/BRAIN WO CON ? INDICATIONS:? fall, hit head, modified trauma ? TECHNIQUE:? Noncontrast 4.5 mm thick angled axial sections acquired from the foramen magnum to the vertex, with coronal and sagittal reformats.? For radiation dose reduction, the following was used:? automated exposure control, adjustment of mA and/or kV according to patient size.? ? COMPARISON:? [facility], CT, CT HEAD/BRAIN WO CON, 10/13/2021, 16:06. ? FINDINGS:? Image quality:? Good ? CSF spaces: Basal cisterns are patent. Lateral ventricles are symmetric. Volume:? Vascular calcifications. 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 Volume loss is present. These findings are moderate ? Brain: No intracranial hemorrhage. Paz-white differentiation is grossly maintained. ? 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 Mastoid effusions again seen. ? IMPRESSION:? No acute intracranial abnormality. ? ? Dictated by: Yan Correia M.D. on 06/17/2022 at 14:52 ? ? Approved by: Yan Correia M.D. on 06/17/2022 at 14:55?? CT - cervical spine: Radiologist's Impression: [place] [address] CT Scan Report Signed Patient: Alessandro Vazquez MR#: [id number] : 1950 Acct:[id number] Age/Sex: 71 / M Date of Service: 06/17/22 Loc: ED Accession Number: [id number] ?? Procedure: CT cervical spine wo con Ordering Provider: Deysi Antunez D.O. PROCEDURE:? CT CERVICAL SPINE WO CON ? INDICATIONS:? fall, hit head, modified trauma ? TECHNIQUE:? Noncontrast 3 mm thick sections acquired from the skull base to the T4 level.? Sagittal and coronal reformats were then constructed.? For radiation dose reduction, the following was used:? automated exposure control, adjustment of mA and/or kV according to patient size.? ? COMPARISON:? None. ? FINDINGS:? Image quality:? Excellent.? ? Bones:? Moderate spondylosis and trace multilevel spur spondylolisthesis, with C2 on C3 and C3 on C4 anterolisthesis and C6 on C7 and C7 on T1 retrolisthesis.? No definite traumatic subluxation.? Vertebral body heights are well maintained, other than endplate deformities. ? Soft tissues:? 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 Vascular calcifications.? No pathologic prevertebral soft tissue swelling. ? ? IMPRESSION:? Moderate spondylotic changes without acute fracture or traumatic subluxation of the cervical spine. ? Dictated by: Yan Correia M.D. on 06/17/2022 at 14:55 ? ? Approved by: Yan Correia M.D. on 06/17/2022 at 14:57?? ECG Data Interpretation: Heart rate 144 AFib RVR vs flutter, occasional PVCs QRS 92 ms, QTc 464 ms Treatment and disposition Shared decision making:: Shared decision-making was used in discussing this patient's evaluation and treatment in the emergency department and plan for ongoing care. MDM Narrative Medical decision making narrative: This is a generally well-appearing 71-year-old male history of hypertension on diltiazem and lisinopril chronically who is also blind with use of a cane, and left arm amputation. Presents today with concern for fall last night with laceration above his eyebrow. Admits to drinking 2 drinks prior to falling. Denies prodrome or LOC. Initial workup included x-rays for further evaluation as well as CT head these were unremarkable with exception of a distal clavicle fracture which is subtle and nondisplaced. He is slightly tender on exam over the distal clavicle, the affected arm is the previously amputated arm (at proximal humerus). During the course of the patient's stay shortly prior to planned discharge patient did go into a tachycardia consistent with AFib RVR versus flutter. 12 lead obtained consistent with this Treated with IV diltiazem 10 mg times two 15 minutes apart, patient was also given his oral lisinopril and oral diltiazem as he missed both his diltiazem and lisinopril at noon today. IV diltiazem filled to break his tachycardia, after consultation with attending physician moved onto Lopressor 5 mg IV. Patient does deny any previous history of atrial fibrillation although he has chronically been on diltiazem. Lopressor and fluid bolus improving the heart rate still in AFib but rate down to 110. Patient's care was handed off to attending physician Dr. Munoz who remains on shift in the emergency department with anticipated plan for admission for new onset AFib RVR in the setting of a fall. <Carlie Tammy, DO - Last Filed: 06/17/22 23:53> Lab Data Labs: Lab Results 06/17/22 06/17/22 06/17/22 Range/Units 18:50 18:50 18:50 WBC 5.5 (4.5-11.0) X10^3/uL RBC 4.02 L (4.5-5.9) X10^6/uL Hgb 14.0 (13.5-17.5) g/dL Hct 40.7 L (41-53) % MCV 101.1 H (80-100) fL MCH 34.9 H (26-34) PG MCHC 34.5 (30-36) % RDW 14.5 (11.6-14.8) % Plt Count 56 L (150-400) X10^3/uL Neut % (Auto) 63.4 (50-75) % Lymph % (Auto) 18.3 L (25-40) % [place] % (Auto) 17.1 H (3-14) % Eos % (Auto) 0.7 L (2-4) % Baso % (Auto) 0.5 (0-2) % Neut # (Auto) 3500 (5307-3905) /uL Lymph # (Auto) 1000 L (5151-9947) /uL [place] # (Auto) 900 (0-900) /uL Eos # (Auto) 0 (0-450) /uL Baso # (Auto) 0 (0-100) /uL Sodium 132 L (137-145) mmol/L Potassium 4.3 (3.4-5.1) mmol/L Chloride 95 L (98-107) mmol/L Carbon Dioxide 27 (22-32) mmol/L BUN 23 H (9-20) mg/dL Creatinine 0.87 (0.66-1.25) mg/dL Estimated GFR > 60 (>60) mL/min BUN/Creatinine Ratio 26.4 H (6-22) Glucose 119 H (80-110) mg/dL Calcium 9.6 (8.4-10.2) mg/dL Magnesium 1.6 (1.6-2.3) mg/dL Total Bilirubin 1.8 H (0.2-1.3) mg/dL AST 88 H (17-59) IU/L ALT 48 (<50) IU/L Alkaline Phosphatase 122 (38-126) U/L Total Creatine Kinase 38 L (55-170) U/L CK-MB (CK-2) TNP CK-MB (CK-2) Rel Index TNP Troponin I < 0.012 (0.01-0.034) ng/mL NT-Pro-B Natriuret Pep 156 H (<125) pg/mL Total Protein 8.1 (6.3-8.2) g/dL Albumin 4.3 (3.5-5.0) g/dL Globulin 3.8 (1.7-4.1) g/dL Albumin/Globulin Ratio 1.1 (1.0-2.8) TSH (0.47-4.68) uIU/mL 06/17/22 Range/Units 18:50 WBC (4.5-11.0) X10^3/uL RBC (4.5-5.9) X10^6/uL Hgb (13.5-17.5) g/dL Hct (41-53) % MCV (80-100) fL MCH (26-34) PG MCHC (30-36) % RDW (11.6-14.8) % Plt Count (150-400) X10^3/uL Neut % (Auto) (50-75) % Lymph % (Auto) (25-40) % [place] % (Auto) (3-14) % Eos % (Auto) (2-4) % Baso % (Auto) (0-2) % Neut # (Auto) (0606-1871) /uL Lymph # (Auto) (2125-6321) /uL [place] # (Auto) (0-900) /uL Eos # (Auto) (0-450) /uL Baso # (Auto) (0-100) /uL Sodium (137-145) mmol/L Potassium (3.4-5.1) mmol/L Chloride (98-107) mmol/L Carbon Dioxide (22-32) mmol/L BUN (9-20) mg/dL Creatinine (0.66-1.25) mg/dL Estimated GFR (>60) mL/min BUN/Creatinine Ratio (6-22) Glucose (80-110) mg/dL Calcium (8.4-10.2) mg/dL Magnesium (1.6-2.3) mg/dL Total Bilirubin (0.2-1.3) mg/dL AST (17-59) IU/L ALT (<50) IU/L Alkaline Phosphatase (38-126) U/L Total Creatine Kinase (55-170) U/L CK-MB (CK-2) CK-MB (CK-2) Rel Index Troponin I (0.01-0.034) ng/mL NT-Pro-B Natriuret Pep (<125) pg/mL Total Protein (6.3-8.2) g/dL Albumin (3.5-5.0) g/dL Globulin (1.7-4.1) g/dL Albumin/Globulin Ratio (1.0-2.8) TSH 2.62 (0.47-4.68) uIU/mL ECG Data Interpretation: Heart rate 144 AFib RVR vs flutter, occasional PVCs QRS 92 ms, QTc 464 ms THUYNICK EKG 1 atrial flutter rate [address] changes no priors to compare EKG 2. Atrial flutter rate [address] changes MDM Narrative Medical decision making narrative: This is a generally well-appearing 71-year-old male history of hypertension on diltiazem and lisinopril chronically who is also blind with use of a cane, and left arm amputation. Presents today with concern for fall last night with laceration above his eyebrow. Admits to drinking 2 drinks prior to falling. Denies prodrome or LOC. Initial workup included x-rays for further evaluation as well as CT head these were unremarkable with exception of a distal clavicle fracture which is subtle and nondisplaced. He is slightly tender on exam over the distal clavicle, the affected arm is the previously amputated arm (at proximal humerus). During the course of the patient's stay shortly prior to planned discharge patient did go into a tachycardia consistent with AFib RVR versus flutter. 12 lead obtained consistent with this Treated with IV diltiazem 10 mg times two 15 minutes apart, patient was also given his oral lisinopril and oral diltiazem as he missed both his diltiazem and lisinopril at noon today. IV diltiazem filled to break his tachycardia, after consultation with attending physician moved onto Lopressor 5 mg IV. Patient does deny any previous history of atrial fibrillation although he has chronically been on diltiazem. Lopressor and fluid bolus improving the heart rate still in AFib but rate down to 110. Patient's care was handed off to attending physician Dr. Munoz who remains on shift in the emergency department with anticipated plan for admission for new onset AFib RVR in the setting of a fall. Botnick-patient signed over to me by Hilary torres seen evaluated patient myself. He had a mechanical fall last night and has a left clavicle fracture. He reports that he takes diltiazem to level out his heart but has never been told he has an irregular heartbeat. reports that his heart rate is normally in the 70s to 90s range. While he has been in the emergency department his heart rate has spiked into the 140s. He was minimally responsive to IV diltiazem was given 180 mg of short-acting diltiazem orally. He still continues to have elevated heart rate 120s to 130s placed on diltiazem drip. His heart rate actually does suddenly slow down into the 70s diltiazem drip is turned off he remains in atrial flutter. Patient is completely asymptomatic even when his rate is fast. He reports that he was previously on aspirin but due to bleeding on his skin he stopped taking it. Discussed with both patient and his in regards to taking aspirin and risk of stroke with atrial flutter. Patient's heart rate remained stable in the 70s we have no prior records to suggest that he is chronically in atrial flutter versus sinus rhythm. However at this time he is rate controlled without drip both he and his would like to go home, which I think is reasonable. Discharge Plan Departure Patient Disposition: Home Clinical Impression: Fall, Facial laceration, Atrial fibrillation with rapid ventricular response, Closed fracture of left clavicle Instructions: DI for Atrial Fibrillation, How to Prevent Falls Activity Restrictions/Additional Instructions: Thank you for letting us be part of her care today in the emergency department. We obtained imaging and did find that you have a mild clavicle fracture on the left, it is reasonable to follow up with primary care Orthopedics although this is not something that will likely require surgery. You can take Tylenol or ibuprofen for pain. Your wound on her forehead was repaired with stitches these will need to come out in 7-10 days. Otherwise imaging obtained today was unremarkable, your labs were also looking ok though looked a little dehydrated, you did go into a rapid heart rhythm during your ED stay, you were asymptomatic from this and treated with IV diltiazem as well as IV metoprolol as well as given your regular lisinopril oral dose. There is no evidence of an emergent or life threatening illness at this time, but follow up with your doctor in 1-2 days is recommended nonetheless to continue to rule out serious underlying causes of your symptoms. Please call the office for an appointment. Please return to the Emergency Department for any worsening or persistent symptoms. Please take medications as directed. Prescriptions: No Action lisinopril 40 mg Tablet 40 mg PO DAILY diltiazem HCl 120 mg Capsule,Extended Release 24 Hr 120 mg PO DAILY Referrals: Anish Reyes ARNP [Primary Care Provider] - Stand Alone Forms: Patient Portal/API
[2022-06-17] MEDS: dilTIAZem 5 MG/ML SDV 10 MG IV ×2 (18:49→19:19)
--- NOTE | 2022-06-17 18:49 | PC.NURSE ---
Took patient's vital signs in preparation for discharge. Patient heart rate 144bmp, elevated blood pressure. Patient denies chest pain, shortness of breath or palpitations. Patient reports he missed his normal diltiazem and lisinopril at noon. States he can however hear is heart beat in his ears which happens from time to time when he misses his medications.
[2022-06-17 18:53] LABS: Add Manual Diff / Slide Review NO; Basophils Absolute Auto 0 /uL (0-100); Basophils Percent Auto 0.5 % (0-2); Eosinophils Absolute Auto 0 /uL (0-450); Eosinophils Percent Auto 0.7 % (2-4); Hematocrit 40.7 % (41-53); Lymphocytes Absolute Auto 1000 /uL (1100-4500); Lymphocytes Percent Auto 18.3 % (25-40); Mean Corpuscular HGB Conc 34.5 % (30-36); Mean Corpuscular Hemoglobin 34.9 PG (26-34); Mean Corpuscular Volume 101.1 fL (80-100); Monocytes Absolute Auto 900 /uL (0-900); Monocytes Percent Auto 17.1 % (3-14); Neutrophils Absolute Auto 3500 /uL (1500-7000); Neutrophils Percent Auto 63.4 % (50-75); Platelet Count 56 X10^3/uL (150-400); Red Blood Cell Count 4.02 X10^6/uL (4.5-5.9); Red Cell Distribution Width 14.5 % (11.6-14.8); White Blood Cell Count 5.5 X10^3/uL (4.5-11.0)
[2022-06-17] MEDS: lisinopriL 20 MG TABLET 40 MG PO (19:16)
[2022-06-17 19:18] LABS: Alanine Aminotransferase 48 IU/L (<50); Albumin 4.3 g/dL (3.5-5.0); Albumin Globulin Ratio 1.1 (1.0-2.8); Alkaline Phosphatase 122 U/L (38-126); Aspartate Aminotransferase 88 IU/L (17-59); BUN Creatinine Ratio 26.4 (6-22); Bilirubin Total 1.8 mg/dL (0.2-1.3); Blood Urea Nitrogen 23 mg/dL (9-20); Calcium 9.6 mg/dL (8.4-10.2); Carbon Dioxide 27 mmol/L (22-32); Chloride 95 mmol/L (98-107); Creatine Kinase 38 U/L (55-170); Estimated Glomerular Filt Rate > 60 mL/min (>60); Globulin 3.8 g/dL (1.7-4.1); Glucose 119 mg/dL (80-110); HEMOLYSIS < 15 (0-50); Potassium 4.3 mmol/L (3.4-5.1); Sodium 132 mmol/L (137-145); Total Protein 8.1 g/dL (6.3-8.2)
[2022-06-17 19:29] LABS: Troponin I < 0.012 ng/mL (0.01-0.034)
[2022-06-17] MEDS: METOPROLOL TARTRATE 5 MG/5 ML INJ IV (19:40)
[2022-06-17] MEDS: SODIUM CHLORIDE 0.9% 500 ML 1000 ML IV (19:51)
[2022-06-17] MEDS: dilTIAZem 30 MG TABLET 180 MG PO (20:10)
[2022-06-17 20:22] LABS: Magnesium 1.6 mg/dL (1.6-2.3)
[2022-06-17 20:32] LABS: NT-proBNP (BNP-Adult 18+) 156 pg/mL (<125)
[2022-06-17 20:55] LABS: Thyroid Stimulating Hormone 2.62 uIU/mL (0.47-4.68)
[2022-06-17] MEDS: DILTIAZEM 125 MG/125 ML PIGGYBACK IV (21:26)
== END 2022-06-17 22:46 | disposition home or self-care (01) ==
PROVIDERS: Student in an Organized Health Care Education/Training Program; Emergency Provider Emergency Medicine; PCP Nurse Practitioner Family
DX: S01.81XA Laceration without foreign body of other part of head, initial encounter (principal); I48.20 Chronic atrial fibrillation, unspecified; Z79.01 Long term (current) use of anticoagulants; S09.90XA Unspecified injury of head, initial encounter; S42.002A Fracture of unspecified part of left clavicle, initial encounter for closed fracture; I10 Essential (primary) hypertension; R00.0 Tachycardia, unspecified; W18.30XA Fall on same level, unspecified, initial encounter
CPT/HCPCS: 36415; 70450; 72125; 73030; 73130; 80053; 82550; 83735; 83880; 84443; 84484; 85025; 93005; 96361; 96365; 96375; 96376; 99284

== ENCOUNTER → 2022-06-28 13:29 | Outpatient (CLI) | payer MEDICARE, OTHER, SELFPAY ==
[2019-11-15 16:28] VITALS: BMI 25.2
--- NOTE | 2022-06-28 13:54 | DI.RAD.S_ITS ---
PROCEDURE: XR SCAPULA LT INDICATIONS: Left scapula pain s/p fall TECHNIQUE: 2 views of the scapula were acquired. COMPARISON: [facility], CR, XR SHOULDER LT MIN 2V, 06/17/2022, 13:53. FINDINGS: Bones: Proximal left humeral amputation associated metallic debris in the soft tissues. Old healed clavicular fracture. Cortical step-off involving the distal-most clavicle remains similar to the prior exam may reflect superimposed acute fracture. Scapula unremarkable. Old healed rib fractures Soft tissues: Overlying soft tissues appear normal. IMPRESSION: Unremarkable scapula without intrinsic osseous lesion or fracture Possible superimposed subacute healing distal clavicular fracture Approved by: Ray Phoenix M.D. on 06/28/2022 at 13:35
== END ==
PROVIDERS: PCP Nurse Practitioner Family; Referring Provider Registered Nurse; Visit Provider Registered Nurse
DX: M89.8X1 Other specified disorders of bone, shoulder (principal)
CPT/HCPCS: 73010

== ENCOUNTER 2023-01-18 10:43 | Inpatient (IN) | payer OTHER, SELFPAY ==
[2019-11-15 16:28] VITALS: BMI 25.2
[2023-01-18] VITALS (53 sets, daily range): BP systolic 100–142; BP diastolic 52–75; PULSE 74–101; RESP 9–46; TEMP 36.2–36.8; O2SAT 86–99; BMI 24.0
--- NOTE | 2023-01-18 11:10 | DI.CT.S_ITS ---
PROCEDURE: CT HEAD/BRAIN WO CON INDICATIONS: Trauma/fall TECHNIQUE: Noncontrast 4.5 mm thick angled axial sections acquired from the foramen magnum to the vertex, with coronal and sagittal reformats. For radiation dose reduction, the following was used: automated exposure control, adjustment of mA and/or kV according to patient size. COMPARISON: [facility], CT, CT HEAD/BRAIN WO CON, 06/17/2022, 14:23. FINDINGS: Image quality: Excellent. CSF spaces: Basal cisterns are patent. No extra-axial fluid collections. The ventricles are symmetric in size and shape. Brain: No intracranial bleeds or masses. There is cerebral volume loss for age, with resultant ventricular and sulcal prominence. There are periventricular and deep white matter chronic small vessel ischemic changes. There is intracranial internal carotid artery atherosclerosis. Skull and face: Calvarium and visualized facial bones appear intact, without suspicious lesions. Left phthisis bulbi. Sinuses: Visualized sinuses are clear. Bilateral mastoid air cell fluid. IMPRESSION: 1. No acute intracranial process. 2. Moderate atrophy and chronic microvascular ischemic changes. Dictated by: Lexi Diehl M.D. on 01/18/2023 at 12:36 Approved by: Lexi Diehl M.D. on 01/18/2023 at 12:41
--- NOTE | 2023-01-18 11:10 | DI.CT.S_ITS ---
PROCEDURE: CT CERVICAL SPINE WO CON INDICATIONS: Trauma/fall TECHNIQUE: Noncontrast 3 mm thick sections acquired from the skull base to the T4 level. Sagittal and coronal reformats were then constructed. For radiation dose reduction, the following was used: automated exposure control, adjustment of mA and/or kV according to patient size. COMPARISON: [facility], CT, CT CERVICAL SPINE WO CON, 06/17/2022, 14:23. FINDINGS: Image quality: Excellent. Bones: No fractures or dislocations. Visualized superior ribs are intact. Reversal of cervical curvature. Multilevel degenerative changes. With Soft tissues: Prevertebral soft tissues are normal in thickness. No paravertebral hematomas. No apical pneumothoraces. IMPRESSION: Multilevel degenerative changes without visualized fracture. Dictated by: Lexi Diehl M.D. on 01/18/2023 at 12:41 Approved by: Lexi Diehl M.D. on 01/18/2023 at 12:45
--- NOTE | 2023-01-18 11:10 | DI.CT.S_ITS ---
PROCEDURE: CT CHEST ABD PEL W CON INDICATIONS: Trauma/fall TECHNIQUE: After the administration of intravenous contrast, 5 mm thick sections acquired from the lung apices to the symphysis. 2.5 mm thick coronal and sagittal reformats were acquired. Additional 7 mm thick coronal maximum intensity projection (MIP) reformats acquired through the lungs. Optional 10-minute delayed imaging may be performed from the kidneys to the bladder. For radiation dose reduction, the following was used: automated exposure control, adjustment of mA and/or kV according to patient size. COMPARISON: None. FINDINGS: Image quality: Excellent. CHEST: Lungs: No pulmonary contusions or lacerations. Mild atelectasis is present at the dependent right lung base. No pneumothorax or hemothorax. Central and peripheral airways appear patent and normal in caliber. No pleural effusion. Mediastinum: No mediastinal hematomas. Heart size is normal. No pericardial effusion. Thoracic aorta and pulmonary arteries demonstrate normal size and enhancement. Scattered atheromatous calcifications are present within the aortic arch. No mediastinal or hilar adenopathy. There are bilateral hilar and mediastinal calcified lymph nodes. Esophagus is normal in caliber. No hiatal hernia. Chest wall: There is a partially healed left 2nd rib fracture. There are multiple healed posterior left rib fractures.. No subcutaneous emphysema. No axillary or supraclavicular adenopathy. Thyroid gland is unremarkable. ABDOMEN: Solid organs: Liver is normal in size and enhancement, without lacerations. Punctate calcifications are present throughout the liver. Multiple calcified gallstones are present within the gallbladder fundus. There is trace pericholecystic fluid. No gallbladder wall thickening. Biliary system is non-dilated. Pancreas enhances normally, without transection. Spleen is normal in size and enhancement, without lacerations. There are innumerable punctate splenic calcifications. No adrenal hematomas. Both kidneys enhance normally, without hydronephrosis or lacerations. There is a nonobstructive 4 mm right renal calculus. Peritoneum and bowel: No free fluid or air. Unenhanced bowel loops demonstrate normal wall thickness and caliber. Nodes and vessels: No retroperitoneal or mesenteric adenopathy. Aorta and inferior vena cava are normal in size and enhancement. There are scattered atheromatous calcifications throughout the aorta and iliac arteries bilaterally. Miscellaneous: No ventral hernias. PELVIS: Genitourinary: Bladder wall thickness is normal. Miscellaneous: No inguinal adenopathy. There are small bilateral fat containing inguinal hernias. Surgical brock are present at midline. Bones: Pelvic ring and hip joints appear intact. No vertebral compression fractures. IMPRESSION: 1. No acute thoracic or intra-abdominal findings to suggest acute traumatic injury. 2. Sequela of prior granulomatous disease. 3. Cholelithiasis and trace pericholecystic fluid. There are no other findings to suggest acute cholecystitis or choledocholithiasis; however please correlate with physical exam findings and laboratory values to exclude early acute cholecystitis. Dictated by: Jen Juan M.D. on 01/18/2023 at 13:47 Approved by: Jen Juan M.D. on 01/18/2023 at 13:54
--- NOTE | 2023-01-18 11:16 | ED.RECABL ---
HPI - Recheck/Abnormal Lab/Rx General Chief Complaint: Recheck/Abnormal Lab/Rx Stated Complaint: DR sent blood count numbers Time Seen by Provider: 01/18/23 11:09 Source: patient and family Mode of arrival: Wheelchair History of Present Illness HPI narrative: Patient brought here by from home for complains of dizziness falling weakness and low hemoglobin. They were called by primary care, who called us that he is sending patient here for frequent falls bruising and low hemoglobin. Patient is on Xarelto for atrial fibrillation. Denies any black or bloody stools. Patient is blind however at bedside state has been off balance for a couple of months. This is not new. Other than the past couple of months. Has had bruising different parts of the body. Denies any pain other than left rib pain at this time. He does have bruising to the left lateral ribs. Patient in no distress. He is awake alert oriented x4. Clear speech. He has at baseline according to . Related Data Home Medications Medication Instructions Recorded Confirmed lisinopril 40 mg tablet 40 mg PO DAILY 11/15/19 01/18/23 diltiazem HCl 120 mg capsule,24 180 mg PO DAILY 11/16/19 01/18/23 hr,extended release calcium phosphate,dibasic 77 1 tab PO DAILY 01/18/23 01/18/23 mg-vitamin D3 400 unit tablet latanoprost 0.005 % eye drops 1 drp ophthalmic (eye) DAILY 01/18/23 01/18/23 Previous Rx's Medication Instructions Recorded amoxicillin 500 mg tablet 500 mg PO Q8H #14 tabs 01/20/23 ferrous sulfate 325 mg (65 mg 325 mg PO BIDWM #60 tabs 01/20/23 iron) tablet pantoprazole 40 mg tablet,delayed 40 mg PO 0700,2100 #60 tabs 01/20/23 release Allergies Allergy/AdvReac Type Severity Reaction Status Date / Time No Known Drug Allergies Allergy Verified 01/18/23 10:55 Review of Systems Review of Systems Narrative: GENERAL: negative chills, positive fatigue, malaise, negative fever, sweats. 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 EYES: Pupils equal round, pale conjunctiva ENT: Mucous membranes moist. NECK: Trachea midline. CARDIOVASCULAR: Regular rate and rhythm RESPIRATORY: Clear to auscultation. Breath sounds equal bilaterally. No wheezes, rales, or rhonchi. GASTROINTESTINAL: Abdomen soft, non-tender EXTREMITIES: No gross deformities. BACK: No flank tenderness. NEURO: AOx4. Clear speech, lift each leg independently without difficulty. SKIN: Warm and dry, bruising to the left lower lateral ribs. Mild tenderness. No crepitus or flail PSYCH: Not anxious, is cooperative Initial Vital Signs Initial Vital Signs: Vital Signs Temperature 97.8 F 01/18/23 10:48 Pulse Rate 97 H 01/18/23 10:48 Respiratory Rate 16 01/18/23 10:48 Blood Pressure 128/61 01/18/23 10:48 Pulse Oximetry 98 01/18/23 10:48 Oxygen Delivery Method Room Air 01/18/23 10:48 Course Orders Ordered: Discontinued Medications Acetaminophen (Acetaminophen 325 Mg Tablet) 650 mg PO Q6H PRN PRN Reason: Fever/Mild Pain (1-3) Last Admin: 01/18/23 22:19 Dose: 650 mg Documented By: Amoxicillin (Amoxicillin 250 Mg Capsule) 500 mg PO TID [facility] Last Admin: 01/20/23 10:08 Dose: 500 mg Documented By: HARDIK Amoxicillin/Clavulanate Potassium (Amoxicillin/Clav 875/125 Mg) 1 tab PO BID [facility] Ferrous Sulfate (Ferrous Sulfate 325 Mg Tablet) 325 mg PO BIDWM [facility] Ferrous Sulfate (Ferrous Sulfate 325 Mg Tablet) 325 mg PO BIDWM [facility] Last Admin: 01/20/23 08:55 Dose: 325 mg Documented By: HARDIK Sodium Chloride (Normal Saline 0.9%) 500 mls @ 1,000 mls/hr IV BOLUS ONE Stop: 01/18/23 12:36 Last Infusion: 01/18/23 14:02 Dose: 0 mls/hr Documented By: Admin: 01/18/23 12:52 Dose: 1,000 mls/hr Documented By: CARLITOS Prothrombin Complex Concent ( Human) 2,000 unit/Miscellaneous 80 mls @ 578.059 mls/hr IV NOW ONE; Protocol Stop: 01/18/23 12:55 Last Infusion: 01/18/23 13:20 Dose: 0 unit/kg/min, 0 mls/hr Documented By: Admin: 01/18/23 13:10 Dose: 3 unit/kg/min, 578.059 mls/hr Documented By: CARLITOS Magnesium Sulfate (Magnesium Sulfate) 2 gm in 50 mls @ 25 mls/hr IV NOW ONE Stop: 01/19/23 12:29 Last Admin: 01/19/23 11:30 Dose: 25 mls/hr Documented By: NNAMDI Co-signed By: JORDAN Melatonin (Melatonin 3 Mg Tablet) 6 mg PO BEDTIME PRN PRN Reason: Insomnia Last Admin: 01/18/23 22:19 Dose: 6 mg Documented By: Metoclopramide HCl (Metoclopramide 10 Mg/2 Ml Inj) 10 mg IV Q6HR PRN PRN Reason: Nausea And Vomiting Naloxone HCl (Naloxone 0.4 Mg/Ml Vial) 0.2 mg IV Q2MIN PRN PRN Reason: Opiate Reversal Ondansetron HCl (Ondansetron 4 Mg/2 Ml Inj) 4 mg IV Q6HR PRN PRN Reason: Nausea And Vomiting Last Admin: 01/18/23 19:19 Dose: 4 mg Documented By: JORDAN Pantoprazole Sodium (Pantoprazole 40 Mg Vial) 40 mg IV BID [facility] Last Admin: 01/19/23 08:12 Dose: 40 mg Documented By: Admin: 01/18/23 22:20 Dose: 40 mg Documented By: Admin: 01/18/23 16:17 Dose: 40 mg Documented By: JORDAN Pantoprazole Sodium (Pantoprazole Dr 40 Mg Tablet) 40 mg PO 0700,2100 [facility] Last Admin: 01/20/23 08:55 Dose: 40 mg Documented By: HARDIK Polyethylene Glycol (Polyethylene Glycol 3350 17 Gm Powd.Pack) 17 gm PO DAILY PRN PRN Reason: Constipation Polyethylene Glycol/Electrolytes (Scs2834/Sod Sulf,Bicarb,Cl/Kcl 4,000 Ml Solution) 2,000 ml PO NOW ONE Stop: 01/18/23 14:19 Last Admin: 01/18/23 16:17 Dose: 2,000 ml Documented By: JORDAN Sennosides (Sennosides 8.6 Mg Tablet) 8.6 mg PO BID PRN PRN Reason: Constipation Vital Signs Vital signs: Vital Signs - 8 hr 01/18/23 10:48 01/18/23 11:03 01/18/23 11:13 Temperature 97.8 F Pulse Rate 97 H 101 H 99 H Respiratory Rate 16 13 12 Blood Pressure 128/61 Pulse Oximetry 98 94 98 Oxygen Delivery Method Room Air 01/18/23 11:13 01/18/23 12:48 01/18/23 13:04 Temperature 98.0 F 98 F Pulse Rate 87 86 Respiratory Rate 18 12 Blood Pressure 138/65 124/58 L 112/57 L Pulse Oximetry Oxygen Delivery Method 01/18/23 11:30 01/18/23 11:30 01/18/23 11:56 Temperature Pulse Rate 95 H Respiratory Rate 13 Blood Pressure 142/65 H 140/65 Pulse Oximetry 98 Oxygen Delivery Method 01/18/23 11:56 01/18/23 12:09 01/18/23 12:10 Temperature Pulse Rate 97 H 101 H Respiratory Rate 12 Blood Pressure 131/62 Pulse Oximetry 98 98 Oxygen Delivery Method 01/18/23 12:10 01/18/23 12:30 01/18/23 12:30 Temperature Pulse Rate 100 H 93 H Respiratory Rate 13 12 Blood Pressure 132/62 Pulse Oximetry 98 97 Oxygen Delivery Method 01/18/23 12:49 01/18/23 12:49 01/18/23 12:59 Temperature Pulse Rate 87 Respiratory Rate 11 L Blood Pressure 124/58 L 113/55 L Pulse Oximetry 96 Oxygen Delivery Method 01/18/23 12:59 01/18/23 13:00 01/18/23 13:00 Temperature Pulse Rate 84 86 Respiratory Rate 11 L 12 Blood Pressure 112/57 L Pulse Oximetry 96 97 Oxygen Delivery Method 01/18/23 13:15 01/18/23 13:15 01/18/23 13:30 Temperature Pulse Rate 85 Respiratory Rate Blood Pressure 118/59 L 100/55 L Pulse Oximetry 96 Oxygen Delivery Method 01/18/23 13:30 01/18/23 13:44 01/18/23 13:45 Temperature Pulse Rate 90 86 Respiratory Rate 14 20 Blood Pressure 113/55 L Pulse Oximetry 96 98 Oxygen Delivery Method 01/18/23 13:45 01/18/23 14:00 01/18/23 14:00 Temperature Pulse Rate 84 82 Respiratory Rate 12 Blood Pressure 123/61 Pulse Oximetry 96 97 Oxygen Delivery Method MDM - Recheck/Abnormal Lab/Rx Lab Data 01/20/23 04:30 01/20/23 04:30 Labs: Lab Results 01/18/23 01/18/23 01/18/23 Range/Units 11:05 11:05 11:05 WBC 3.4 L (4.5-11.0) X10^3/uL RBC 2.38 L (4.5-5.9) X10^6/uL Hgb 5.6 L* (13.5-17.5) g/dL Hct 17.8 L* (41-53) % MCV 74.9 L (80-100) fL MCH 23.7 L (26-34) PG MCHC 31.7 (30-36) % RDW 16.3 H (11.6-14.8) % Plt Count 115 L (150-400) X10^3/uL Neut % (Auto) 46.9 L (50-75) % Lymph % (Auto) 29.2 (25-40) % [place] % (Auto) 19.4 H (3-14) % Eos % (Auto) 2.4 (2-4) % Baso % (Auto) 2.1 H (0-2) % Neut # (Auto) 1600 (0649-3913) /uL Lymph # (Auto) 1000 L (1621-0511) /uL [place] # (Auto) 700 (0-900) /uL Eos # (Auto) 100 (0-450) /uL Baso # (Auto) 100 (0-100) /uL Smear Path Review Haptoglobin (34-355) mg/dL PT 16.7 H (10.1-12.7) SECONDS INR 1.5 H (0.9-1.3) APTT 32 (26-36) SECONDS Sodium 129 L (137-145) mmol/L Potassium 4.3 (3.4-5.1) mmol/L Chloride 100 (98-107) mmol/L Carbon Dioxide 23 (22-32) mmol/L BUN 15 (9-20) mg/dL Creatinine 0.94 (0.66-1.25) mg/dL Estimated GFR > 60 (>60) mL/min BUN/Creatinine Ratio 16.0 (6-22) Glucose 99 (80-110) mg/dL Calcium 8.4 (8.4-10.2) mg/dL Magnesium (1.6-2.3) mg/dL Total Bilirubin 0.8 (0.2-1.3) mg/dL AST 57 (17-59) IU/L ALT 38 (<50) IU/L Alkaline Phosphatase 86 (38-126) U/L Total Creatine Kinase 39 L (55-170) U/L Troponin I < 0.012 (0.01-0.034) ng/mL Total Protein 6.1 L (6.3-8.2) g/dL Albumin 3.2 L (3.5-5.0) g/dL Globulin 2.9 (1.7-4.1) g/dL Albumin/Globulin Ratio 1.1 (1.0-2.8) Blood Type Antibody Screen Crossmatch 01/18/23 01/18/23 01/18/23 Range/Units 11:05 11:05 11:05 WBC (4.5-11.0) X10^3/uL RBC (4.5-5.9) X10^6/uL Hgb (13.5-17.5) g/dL Hct (41-53) % MCV (80-100) fL MCH (26-34) PG MCHC (30-36) % RDW (11.6-14.8) % Plt Count (150-400) X10^3/uL Neut % (Auto) (50-75) % Lymph % (Auto) (25-40) % [place] % (Auto) (3-14) % Eos % (Auto) (2-4) % Baso % (Auto) (0-2) % Neut # (Auto) (7600-4926) /uL Lymph # (Auto) (8072-1626) /uL [place] # (Auto) (0-900) /uL Eos # (Auto) (0-450) /uL Baso # (Auto) (0-100) /uL Smear Path Review Haptoglobin 89 (34-355) mg/dL PT (10.1-12.7) SECONDS INR (0.9-1.3) APTT (26-36) SECONDS Sodium (137-145) mmol/L Potassium (3.4-5.1) mmol/L Chloride (98-107) mmol/L Carbon Dioxide (22-32) mmol/L BUN (9-20) mg/dL Creatinine (0.66-1.25) mg/dL Estimated GFR (>60) mL/min BUN/Creatinine Ratio (6-22) Glucose (80-110) mg/dL Calcium (8.4-10.2) mg/dL Magnesium 1.9 (1.6-2.3) mg/dL Total Bilirubin (0.2-1.3) mg/dL AST (17-59) IU/L ALT (<50) IU/L Alkaline Phosphatase (38-126) U/L Total Creatine Kinase (55-170) U/L Troponin I (0.01-0.034) ng/mL Total Protein (6.3-8.2) g/dL Albumin (3.5-5.0) g/dL Globulin (1.7-4.1) g/dL Albumin/Globulin Ratio (1.0-2.8) Blood Type A Positive Antibody Screen Negative Crossmatch See Detail 01/18/23 Range/Units 11:07 WBC (4.5-11.0) X10^3/uL RBC (4.5-5.9) X10^6/uL Hgb (13.5-17.5) g/dL Hct (41-53) % MCV (80-100) fL MCH (26-34) PG MCHC (30-36) % RDW (11.6-14.8) % Plt Count (150-400) X10^3/uL Neut % (Auto) (50-75) % Lymph % (Auto) (25-40) % [place] % (Auto) (3-14) % Eos % (Auto) (2-4) % Baso % (Auto) (0-2) % Neut # (Auto) (8798-0415) /uL Lymph # (Auto) (0705-0819) /uL [place] # (Auto) (0-900) /uL Eos # (Auto) (0-450) /uL Baso # (Auto) (0-100) /uL Smear Path Review Haptoglobin (34-355) mg/dL PT (10.1-12.7) SECONDS INR (0.9-1.3) APTT (26-36) SECONDS Sodium (137-145) mmol/L Potassium (3.4-5.1) mmol/L Chloride (98-107) mmol/L Carbon Dioxide (22-32) mmol/L BUN (9-20) mg/dL Creatinine (0.66-1.25) mg/dL Estimated GFR (>60) mL/min BUN/Creatinine Ratio (6-22) Glucose (80-110) mg/dL Calcium (8.4-10.2) mg/dL Magnesium (1.6-2.3) mg/dL Total Bilirubin (0.2-1.3) mg/dL AST (17-59) IU/L ALT (<50) IU/L Alkaline Phosphatase (38-126) U/L Total Creatine Kinase (55-170) U/L Troponin I (0.01-0.034) ng/mL Total Protein (6.3-8.2) g/dL Albumin (3.5-5.0) g/dL Globulin (1.7-4.1) g/dL Albumin/Globulin Ratio (1.0-2.8) Blood Type Antibody Screen Crossmatch Imaging Data CT scan - head: Radiologist's Impression: [address] [address] [address] Scan Report Signed Patient: Alessandro Vazquez MR#: [id number] : 1950 Acct:[id number] Age/Sex: 72 / M Date of Service: 01/18/23 Loc: ED Accession Number: [id number] ?? Procedure: CT head/brain wo con Ordering Provider: Jesse Cespedes MD PROCEDURE:? CT HEAD/BRAIN WO CON ? INDICATIONS:? Trauma/fall ? TECHNIQUE:? Noncontrast 4.5 mm thick angled axial sections acquired from the foramen magnum to the vertex, with coronal and sagittal reformats.? For radiation dose reduction, the following was used:? automated exposure control, adjustment of mA and/or kV according to patient size.? ? COMPARISON:? [facility], CT, CT HEAD/BRAIN WO CON, 06/17/2022, 14:23. ? FINDINGS:? Image quality:? Excellent.? ? CSF spaces:? Basal cisterns are patent.? No extra-axial fluid collections.? The ventricles are symmetric in size and shape.? ? Brain:? No intracranial bleeds or masses.? There is cerebral volume loss for age, with resultant ventricular and sulcal prominence.? There are periventricular and deep white matter chronic small vessel ischemic changes.? There is intracranial internal carotid artery atherosclerosis.? ? Skull and face:? Calvarium and visualized facial bones appear intact, without suspicious lesions.? Left phthisis bulbi. ? Sinuses:? Visualized sinuses are clear.? Bilateral mastoid air cell fluid.? ? ? IMPRESSION:? ? 1. No acute intracranial process. ? 2. Moderate atrophy and chronic microvascular ischemic changes. ? ? Dictated by: Lexi Diehl M.D. on 01/18/2023 at 12:36 ? ? Approved by: Lexi Diehl M.D. on 01/18/2023 at 12:41 ? CT - cervical spine: Radiologist's Impression: [place] [address] CT Scan Report Signed Patient: Alessandro Vazquez MR#: [id number] : 1950 Acct:[id number] Age/Sex: 72 / M Date of Service: 01/18/23 Loc: ED Accession Number: [id number] ?? Procedure: CT cervical spine wo con Ordering Provider: Jesse Cespedes MD PROCEDURE:? CT CERVICAL SPINE WO CON ? INDICATIONS:? Trauma/fall ? TECHNIQUE:? Noncontrast 3 mm thick sections acquired from the skull base to the T4 level.? Sagittal and coronal reformats were then constructed.? For radiation dose reduction, the following was used:? automated exposure control, adjustment of mA and/or kV according to patient size.? ? COMPARISON:? [facility], CT, CT CERVICAL SPINE WO CON, 06/17/2022, 14:23. ? FINDINGS:? Image quality:? Excellent.? ? Bones:? No fractures or dislocations.? Visualized superior ribs are intact.? Reversal of cervical curvature.? Multilevel degenerative changes.? With ? Soft tissues:? Prevertebral soft tissues are normal in thickness.? No paravertebral hematomas.? No apical pneumothoraces.? ? ? IMPRESSION:? Multilevel degenerative changes without visualized fracture.? Dictated by: Lexi Diehl M.D. on 01/18/2023 at 12:41 ? ? Approved by: Lexi Diehl M.D. on 01/18/2023 at 12:45 ? CT chest abdomen pelvis: Radiologist's Impression: [place] [address] CT Scan Report Signed Patient: Alessandro Vazquez MR#: [id number] : 1950 Acct:[id number] Age/Sex: 72 / M Date of Service: 01/18/23 Loc: ED Accession Number: [id number] ?? Procedure: CT chest abd pel w con Ordering Provider: Jesse Cespedes MD PROCEDURE:? CT CHEST ABD PEL W CON ? INDICATIONS:? Trauma/fall ? TECHNIQUE:? After the administration of intravenous contrast, 5 mm thick sections acquired from the lung apices to the symphysis.? 2.5 mm thick coronal and sagittal reformats were acquired. ?Additional 7 mm thick coronal maximum intensity projection (MIP) reformats acquired through the lungs.? Optional 10-minute delayed imaging may be performed from the kidneys to the bladder.? For radiation dose reduction, the following was used:? automated exposure control, adjustment of mA and/or kV according to patient size.? ? COMPARISON:? None. ? FINDINGS:? Image quality:? Excellent.? ? CHEST:? Lungs:? No pulmonary contusions or lacerations.? Mild atelectasis is present at the dependent right lung base.? No pneumothorax or hemothorax.? Central and peripheral airways appear patent and normal in caliber.? No pleural effusion. ? Mediastinum:? No mediastinal hematomas.? Heart size is normal.? No pericardial effusion.? Thoracic aorta and pulmonary arteries demonstrate normal size and enhancement. Scattered atheromatous calcifications are present within the aortic arch.? No mediastinal or hilar adenopathy.? There are bilateral hilar and mediastinal calcified lymph nodes.? Esophagus is normal in caliber.? No hiatal hernia.? ? Chest wall:? There is a partially healed left 2nd rib fracture.? There are multiple healed posterior left rib fractures..? No subcutaneous emphysema.? No axillary or supraclavicular adenopathy.? Thyroid gland is unremarkable.? ? ? ABDOMEN:? Solid organs:? Liver is normal in size and enhancement, without lacerations.? Punctate calcifications are present throughout the liver.? Multiple calcified gallstones are present within the gallbladder fundus.? There is trace pericholecystic fluid.? No gallbladder wall thickening.? Biliary system is non-dilated.? Pancreas enhances normally, without transection.? Spleen is normal in size and enhancement, without lacerations.? There are innumerable punctate splenic calcifications.? No adrenal hematomas.? Both kidneys enhance normally, without hydronephrosis or lacerations.? There is a nonobstructive 4 mm right renal calculus. ? Peritoneum and bowel:? No free fluid or air.? Unenhanced bowel loops demonstrate normal wall thickness and caliber.? ? Nodes and vessels:? No retroperitoneal or mesenteric adenopathy.? Aorta and inferior vena cava are normal in size and enhancement.? There are scattered atheromatous calcifications throughout the aorta and iliac arteries bilaterally. ? Miscellaneous:? No ventral hernias.? ? ? PELVIS:? Genitourinary:? Bladder wall thickness is normal.? ? Miscellaneous:? No inguinal adenopathy.? There are small bilateral fat containing inguinal hernias.? Surgical brock are present at midline. ? Bones:? Pelvic ring and hip joints appear intact.? No vertebral compression fractures.? ? ? IMPRESSION:? ? 1. No acute thoracic or intra-abdominal findings to suggest acute traumatic injury. ? 2. Sequela of prior granulomatous disease. ? 3. Cholelithiasis and trace pericholecystic fluid.? There are no other findings to suggest acute cholecystitis or choledocholithiasis; however please correlate with physical exam findings and laboratory values to exclude early acute cholecystitis. ? Dictated by: Jen Juan M.D. on 01/18/2023 at 13:47 ? ? Approved by: Jen Juan M.D. on 01/18/2023 at 13:54 ? [facility] Narrative Medical decision making narrative: Patient brought here by from home for complains of dizziness falling weakness and low hemoglobin. They were called by primary care, who called us that he is sending patient here for frequent falls bruising and low hemoglobin. Patient is on Xarelto for atrial fibrillation. Denies any black or bloody stools. Patient is blind however at bedside state has been off balance for a couple of months. This is not new. Other than the past couple of months. Has had bruising different parts of the body. Denies any pain other than left rib pain at this time. He does have bruising to the left lateral ribs. Patient in no distress. He is awake alert oriented x4. Clear speech. He has at baseline according to . After history and exam CBC CMP PT PTT INR CT head CT stroke side CT chest abdomen pelvis [facility] CC: Anemia/fall Complicating co-morbidities: Patient on blood thinners Data collected from: Patient and Medical records reviewed: No recent visit for this complaint Differential considered: Includes but not limited to anemia GI bleed hematomas rib fracture Exam documented above, pertinent findings include: Tender left ribs, pale conjunctiva Lab Test results independently reviewed as above. Pertinent findings: WBC 3.4 hemoglobin 5.6 hematocrit 17.8 platelets 115 BUN 15 creatinine 0.94 Independently reviewed EKG normal sinus rhythm rate [address] elevation or depression Imaging studies independently reviewed: CT head CT cervical spine CT chest abdomen pelvis no acute finding Consultations: 12:[address] Huitron, general surgeon, he will follow in consult. Endoscopy when hemoglobin level steady/stable 12:48 p.m.. Spoke with hospitalist, Dr. Tejada, will admit pending the CT results. He would like patient given Kcentra 2000 units once 1:25 p.m.. Spoke with powerhouse attendant, Shanique, patient can be on acute care bed. Not requiring ICU due to no active bleeding and stable vital signs. 2:[address] Tejada, hospitalist, CT results are back and are reassuring. He will admit patient inpatient Treatments: Normal saline Kcentra Re-evaluations: Reviewed results with patient and . They do agree for admission. Discussion: Appropriate for admission for acute anemia requiring blood transfusion and workup for anemia. Reviewed with patient and and they do agree for admission. Nontoxic. Blood pressure has been stable. Diagnosis: Acute anemia Critical Care Time Critical Care Time Attestation: Critical Care Time minutes: 35 Patient requiring blood transfusion Critical care time is separate from other billable procedures. This critical care time includes consultation with family and other consulting doctors, review of records, and interpretation of data from labs, EKGs, imaging, etc. Discharge Plan Departure Patient Disposition: Admitted As Inpatient Clinical Impression: Anemia Qualifiers: Anemia type: unspecified type Qualified Code(s): D64.9 - Anemia, unspecified Admit Date/Time: 01/18/23 14:07 Admit Provider: Ezra Tejada
[2023-01-18 11:21] LABS: Add Manual Diff / Slide Review NO; Basophils Absolute Auto 100 /uL (0-100); Basophils Percent Auto 2.1 % (0-2); Eosinophils Absolute Auto 100 /uL (0-450); Eosinophils Percent Auto 2.4 % (2-4); Lymphocytes Absolute Auto 1000 /uL (1100-4500); Lymphocytes Percent Auto 29.2 % (25-40); Mean Corpuscular HGB Conc 31.7 % (30-36); Mean Corpuscular Hemoglobin 23.7 PG (26-34); Mean Corpuscular Volume 74.9 fL (80-100); Monocytes Absolute Auto 700 /uL (0-900); Monocytes Percent Auto 19.4 % (3-14); Neutrophils Absolute Auto 1600 /uL (1500-7000); Neutrophils Percent Auto 46.9 % (50-75); Platelet Count 115 X10^3/uL (150-400); Red Blood Cell Count 2.38 X10^6/uL (4.5-5.9); Red Cell Distribution Width 16.3 % (11.6-14.8); White Blood Cell Count 3.4 X10^3/uL (4.5-11.0)
--- NOTE | 2023-01-18 11:21 | PC.NURSE ---
Unknown cause of blood loss. Some bruising on L lower ribs from a recent fall. denies black or bloody stools.
[2023-01-18 11:25] LABS: Hematocrit 17.8 % (41-53); Hemoglobin 5.6 g/dL (13.5-17.5)
[2023-01-18 11:29] LABS: INR 1.5 (0.9-1.3); Prothrombin Time 16.7 SECONDS (10.1-12.7)
[2023-01-18 11:31] LABS: PTT Partial Thromboplastin Tim 32 SECONDS (26-36)
[2023-01-18 11:35] LABS: Alanine Aminotransferase 38 IU/L (<50); Albumin 3.2 g/dL (3.5-5.0); Albumin Globulin Ratio 1.1 (1.0-2.8); Alkaline Phosphatase 86 U/L (38-126); Aspartate Aminotransferase 57 IU/L (17-59); Bilirubin Total 0.8 mg/dL (0.2-1.3); Blood Urea Nitrogen 15 mg/dL (9-20); Calcium 8.4 mg/dL (8.4-10.2); Carbon Dioxide 23 mmol/L (22-32); Chloride 100 mmol/L (98-107); Creatine Kinase 39 U/L (55-170); Estimated Glomerular Filt Rate > 60 mL/min (>60); Globulin 2.9 g/dL (1.7-4.1); Glucose 99 mg/dL (80-110); HEMOLYSIS < 15 (0-50); Potassium 4.3 mmol/L (3.4-5.1); Sodium 129 mmol/L (137-145); Total Protein 6.1 g/dL (6.3-8.2)
[2023-01-18 11:45] LABS: Troponin I < 0.012 ng/mL (0.01-0.034)
[2023-01-18] MEDS: SODIUM CHLORIDE 0.9% 500 ML 1000 ML IV (12:52)
[2023-01-18] MEDS: PROTHROMBIN CPLX(PCC)4FACT 2,000 UNIT in ISOOSMOTIC VEHICLE 0 ML 578.059 UNIT IV (13:10)
[2023-01-18 14:53] LABS: Appearance Urine UA CLEAR; Bilirubin Urine UA NEGATIVE (NEGATIVE); Color Urine UA YELLOW; Glucose Urine UA NEGATIVE (Negative); Ketones Urine UA NEGATIVE (NEGATIVE); Leukocyte Esterase Urine UA TRACE (NEGATIVE); Nitrite Urine UA NEGATIVE (Negative); Occult Blood Urine UA NEGATIVE (Negative); Protein Urine UA NEGATIVE (Negative)
[2023-01-18 14:56] LABS: Bacteria Urine None Seen; Culture Indicated Urine Specimen Cultured; RBC Urine 0-1/HPF (0-5/HPF); Squamous Epithelial Cell Urine None Seen (0-5/HPF); WBC Urine 1-5/HPF (0-5/HPF)
[2023-01-18 15:00] LABS: Magnesium 1.9 mg/dL (1.6-2.3)
[2023-01-18] MEDS: PEG3350/SOD SULF,BICARB,CL/KCL 4,000 ML SOLUTION 2000 ML PO (16:17)
[2023-01-18] MEDS: PANTOPRAZOLE 40 MG VIAL IV ×2 (16:17→22:20)
[2023-01-18 18:47] LABS: Hemoglobin 7.4 g/dL (13.5-17.5)
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
[2023-01-18] MEDS: ONDANSETRON 4 MG/2 ML INJ IV (19:19)
[2023-01-18] MEDS: MELATONIN 3 MG TABLET 6 MG PO (22:19)
[2023-01-18] MEDS: ACETAMINOPHEN 325 MG TABLET 650 MG PO (22:19)
[2023-01-18 22:32] LABS: Sodium Urine Random 41 mmol/L (30-90)
[2023-01-18 23:00] LABS: MRSA (Nasal) PCR Not Detected (Not Detect)
[2023-01-19] VITALS (48 sets, daily range): BP systolic 107–153; BP diastolic 52–80; PULSE 47–99; RESP 8–32; TEMP 36.2–36.9; O2SAT 95–100; BMI 24.0
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
[2023-01-19 05:08] LABS: INR 1.6 (0.9-1.3); Prothrombin Time 18.2 SECONDS (10.1-12.7)
[2023-01-19 05:14] LABS: HEMOLYSIS < 15 (0-50); Iron 43 ug/dL (49-181); Lactate Dehydrogenase 130 U/L (120-246); Magnesium 1.7 mg/dL (1.6-2.3)
[2023-01-19 05:15] LABS: BUN Creatinine Ratio 17.3 (6-22); Blood Urea Nitrogen 14 mg/dL (9-20); Calcium 8.3 mg/dL (8.4-10.2); Carbon Dioxide 22 mmol/L (22-32); Chloride 98 mmol/L (98-107); Estimated Glomerular Filt Rate > 60 mL/min (>60); Glucose 116 mg/dL (80-110); HEMOLYSIS < 15 (0-50); Potassium 3.8 mmol/L (3.4-5.1); Sodium 128 mmol/L (137-145)
[2023-01-19 05:27] LABS: Percent Iron Saturation 10 % (20-50); Total Iron Binding Capacity 418 ug/dL (261-462); Transferrin 303 mg/dL (206-381)
[2023-01-19 05:35] LABS: Hemoglobin 7.2 g/dL (13.5-17.5); Mean Corpuscular HGB Conc 33.1 % (30-36); Mean Corpuscular Hemoglobin 25.7 PG (26-34); Mean Corpuscular Volume 77.5 fL (80-100); Platelet Count 100 X10^3/uL (150-400); Red Blood Cell Count 2.79 X10^6/uL (4.5-5.9)
[2023-01-19 05:41] LABS: Add Manual Diff / Slide Review YES; Hematocrit 21.6 % (41-53)
[2023-01-19 05:52] LABS: Ferritin 13 ng/mL (18-464)
[2023-01-19 06:16] LABS: Reticulocyte Count, Percent 2.4 % (0.9-2.6)
[2023-01-19 06:24] LABS: Folate 9.3 ng/mL (2.76-20.0); Vitamin B12 780 pg/mL (239-931)
--- NOTE | 2023-01-19 06:48 | PC.NURSE ---
Pt has not tolerated GoLytely prep. Pt has been nauseated with dry heaves medicated x 1 for vomitting. Pt liquid stools are dark brown with red in them. has only had 3 stools total and is no where near clear at this time.
[2023-01-19 07:09] LABS: Neutrophils Absolute Manual 4000 /uL (3000-5900); Total Cells Counted 100
[2023-01-19 07:10] LABS: Anisocytosis 1+; Microcytosis 1+
[2023-01-19] MEDS: PANTOPRAZOLE 40 MG VIAL IV (08:12)
--- NOTE | 2023-01-19 10:16 | OT.IPNOTE ---
Per hospitalist hold OT eval for pt until after EGD completed.
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
[2023-01-19] MEDS: MAGNESIUM SULFATE 2 GM/50 ML PIGGYBACK IV (11:30)
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
--- NOTE | 2023-01-19 13:44 | PM.CN ---
History of Present Illness Consult details Date Patient Seen: 01/19/23 Time Patient Seen: 13:44 Chief complaint: DR sent blood count numbers Narrative: Alessandro is a 72-year-old gentleman who presented for weakness and was found to be profoundly anemic. He has never had a colonoscopy before. He does take Xarelto for atrial fibrillation. Meds Home Medications and Allergies Home Medications Medication Instructions Recorded Confirmed Type lisinopril 40 mg tablet 40 mg PO DAILY 11/15/19 01/18/23 History diltiazem HCl 120 mg capsule,24 180 mg PO DAILY 11/16/19 01/18/23 History hr,extended release calcium phosphate,dibasic 77 1 tab PO DAILY 01/18/23 01/18/23 History mg-vitamin D3 400 unit tablet latanoprost 0.005 % eye drops 1 drp ophthalmic (eye) DAILY 01/18/23 01/18/23 History rivaroxaban 20 mg tablet (Xarelto) 20 mg PO DAILY 01/18/23 01/18/23 History Allergies Allergy/AdvReac Type Severity Reaction Status Date / Time No Known Drug Allergies Allergy Verified 01/18/23 10:55 Exam Vital Signs (past 8 hours): - 01/19/23 07:00 01/19/23 08:00 01/19/23 12:00 Temperature 98.0 F Pulse Rate 89 83 Respiratory Rate 22 20 Blood Pressure 153/69 H 147/68 H Pulse Oximetry 97 97 Oxygen Delivery Method Room Air Oxygen Flow Rate 0 0 Oxygen Delivery Method Room Air Oxygen Flow Rate 0 Const General: No acute distress Nutritional Appearance: average body habitus Objective Labs 01/19/23 04:12 01/19/23 04:12 Labs: Laboratory Results - last 24 hr 01/18/23 01/18/23 01/18/23 11:05 11:05 14:19 WBC RBC Hgb Hct MCV MCH MCHC RDW Plt Count Neut % (Auto) Lymph % (Auto) [place] % (Auto) Eos % (Auto) Baso % (Auto) Lymph # (Auto) [place] # (Auto) Baso # (Auto) Total Counted Seg Neutrophils % Lymphocytes % (Manual) Monocytes % (Manual) Basophils % (Manual) Neutrophils # (Manual) RBC Morphology Anisocytosis Microcytosis Percent Retic PT INR Sodium Potassium Chloride Carbon Dioxide BUN Creatinine Estimated GFR BUN/Creatinine Ratio Glucose Calcium Magnesium 1.9 Iron TIBC % Saturation Transferrin Ferritin Lactate Dehydrogenase Vitamin B12 Folate Urine Color Urine Appearance Urine pH Ur Specific [place] Urine Protein Urine Glucose (UA) Urine Ketones Urine Occult Blood Urine Nitrate Urine Bilirubin Urine Urobilinogen Ur Leukocyte Esterase Urine RBC Urine WBC Ur Squamous Epith Cells Urine Bacteria Ur Culture Indicated? Ur Random Sodium 41 Nasal Screen MRSA (PCR) Blood Type A Positive Antibody Screen Negative Crossmatch See Detail 01/18/23 01/18/23 01/18/23 14:19 15:40 18:03 WBC RBC Hgb 7.4 L Hct MCV MCH MCHC RDW Plt Count Neut % (Auto) Lymph % (Auto) [place] % (Auto) Eos % (Auto) Baso % (Auto) Lymph # (Auto) [place] # (Auto) Baso # (Auto) Total Counted Seg Neutrophils % Lymphocytes % (Manual) Monocytes % (Manual) Basophils % (Manual) Neutrophils # (Manual) RBC Morphology Anisocytosis Microcytosis Percent Retic PT INR Sodium Potassium Chloride Carbon Dioxide BUN Creatinine Estimated GFR BUN/Creatinine Ratio Glucose Calcium Magnesium Iron TIBC % Saturation Transferrin Ferritin Lactate Dehydrogenase Vitamin B12 Folate Urine Color Yellow Urine Appearance Clear Urine pH 7.0 Ur Specific [place] 1.010 Urine Protein Negative Urine Glucose (UA) Negative Urine Ketones Negative Urine Occult Blood Negative Urine Nitrate Negative Urine Bilirubin Negative Urine Urobilinogen 1.0 Ur Leukocyte Esterase Trace H Urine RBC 0-1/hpf Urine WBC 1-5/hpf Ur Squamous Epith Cells None seen Urine Bacteria None seen Ur Culture Indicated? Specimen cultured Ur Random Sodium Nasal Screen MRSA (PCR) Not detected Blood Type Antibody Screen Crossmatch 01/19/23 01/19/23 01/19/23 04:12 04:12 04:12 WBC 5.0 RBC 2.79 L Hgb 7.2 L Hct 21.6 L MCV 77.5 L MCH 25.7 L MCHC 33.1 RDW 18.0 H Plt Count 100 L Neut % (Auto) Not Reportable Lymph % (Auto) Not Reportable [place] % (Auto) Not Reportable Eos % (Auto) Not Reportable Baso % (Auto) Not Reportable Lymph # (Auto) Not Reportable [place] # (Auto) Not Reportable Baso # (Auto) Not Reportable Total Counted 100 Seg Neutrophils % 80.0 H Lymphocytes % (Manual) 14.0 L Monocytes % (Manual) 5.0 Basophils % (Manual) 1.0 Neutrophils # (Manual) 4000 RBC Morphology See below Anisocytosis 1+ H Microcytosis 1+ H Percent Retic PT 18.2 H INR 1.6 H Sodium Potassium Chloride Carbon Dioxide BUN Creatinine Estimated GFR BUN/Creatinine Ratio Glucose Calcium Magnesium 1.7 Iron TIBC % Saturation Transferrin Ferritin Lactate Dehydrogenase Vitamin B12 Folate Urine Color Urine Appearance Urine pH Ur Specific [place] Urine Protein Urine Glucose (UA) Urine Ketones Urine Occult Blood Urine Nitrate Urine Bilirubin Urine Urobilinogen Ur Leukocyte Esterase Urine RBC Urine WBC Ur Squamous Epith Cells Urine Bacteria Ur Culture Indicated? Ur Random Sodium Nasal Screen MRSA (PCR) Blood Type Antibody Screen Crossmatch 01/19/23 01/19/23 01/19/23 04:12 04:12 04:12 WBC RBC Hgb Hct MCV MCH MCHC RDW Plt Count Neut % (Auto) Lymph % (Auto) [place] % (Auto) Eos % (Auto) Baso % (Auto) Lymph # (Auto) [place] # (Auto) Baso # (Auto) Total Counted Seg Neutrophils % Lymphocytes % (Manual) Monocytes % (Manual) Basophils % (Manual) Neutrophils # (Manual) RBC Morphology Anisocytosis Microcytosis Percent Retic PT INR Sodium 128 L Potassium 3.8 Chloride 98 Carbon Dioxide 22 BUN 14 Creatinine 0.81 Estimated GFR > 60 BUN/Creatinine Ratio 17.3 Glucose 116 H Calcium 8.3 L Magnesium Iron 43 L TIBC 418 % Saturation 10 L Transferrin 303 Ferritin 13 L Lactate Dehydrogenase 130 Vitamin B12 780 Folate 9.3 Urine Color Urine Appearance Urine pH Ur Specific [place] Urine Protein Urine Glucose (UA) Urine Ketones Urine Occult Blood Urine Nitrate Urine Bilirubin Urine Urobilinogen Ur Leukocyte Esterase Urine RBC Urine WBC Ur Squamous Epith Cells Urine Bacteria Ur Culture Indicated? Ur Random Sodium Nasal Screen MRSA (PCR) Blood Type Antibody Screen Crossmatch 01/19/23 04:12 WBC RBC Hgb Hct MCV MCH MCHC RDW Plt Count Neut % (Auto) Lymph % (Auto) [place] % (Auto) Eos % (Auto) Baso % (Auto) Lymph # (Auto) [place] # (Auto) Baso # (Auto) Total Counted Seg Neutrophils % Lymphocytes % (Manual) Monocytes % (Manual) Basophils % (Manual) Neutrophils # (Manual) RBC Morphology Anisocytosis Microcytosis Percent Retic 2.4 PT INR Sodium Potassium Chloride Carbon Dioxide BUN Creatinine Estimated GFR BUN/Creatinine Ratio Glucose Calcium Magnesium Iron TIBC % Saturation Transferrin Ferritin Lactate Dehydrogenase Vitamin B12 Folate Urine Color Urine Appearance Urine pH Ur Specific [place] Urine Protein Urine Glucose (UA) Urine Ketones Urine Occult Blood Urine Nitrate Urine Bilirubin Urine Urobilinogen Ur Leukocyte Esterase Urine RBC Urine WBC Ur Squamous Epith Cells Urine Bacteria Ur Culture Indicated? 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
--- NOTE | 2023-01-19 14:49 | PM.OP.EC ---
Operative Date/Time/Diagnoses Date of procedure: 01/19/23 Time of procedure: 14:49 Pre-op diagnosis: Anemia Post-op diagnosis: same Procedure & Clinicians Study performed: EGD and colonoscopy Same procedure as scheduled: Yes Surgeon: Irineo Gallegos Procedure Notes Procedure in detail: Surgeon: Irineo Gallegos MD Anesthesia: Landy Mcdowell CRNA Procedure in detail: A timeout was performed. A bite blocked was placed and monitors were attached to the patient. The patient was positioned in a left lateral decubitus position. Sedation was administered. Once the patient was sedated the endoscope was inserted through the bite block and passed through the esophagus and stomach and into the duodenum. The duodenum appeared relatively normal and no abnormalities were seen in the duodenal bulb. We then withdrew the scope into the stomach. The antrum was slightly inflamed with some hypertrophied mucosa no sung ulcerations. Random biopsies were taken from the antrum. Proximal stomach was rather inflamed and thickened with cobblestone appearance involving the mucosa to about the senior care point of the stomach body. Biopsies were taken from the abnormal appearing mucosa and sent as ?proximal stomach?. The endoscope was retroflexed and a small hiatal hernia was seen. The endoscope was straightned and withdrawn into the esophagus. There appeared to be salmon-colored patches of mucosa at the GE junction with some islands of pale squamous mucosa in between. Biopsies were taken and sent as ?GE junction?. Findings: Proximal mucosal thickening and gastritis, salmon-colored mucosa at the GE junction Next we repositioned the patient for a colonoscopy. A digital rectal exam was performed and was normal. The colonoscope was inserted and advanced to the ileocolic anastomosis. It was evident that the patient had a prior proximal colectomy. The scope was slowly withdrawn over greater than 6 minutes. There was 3-4 cm polyp on a stalk in the proximal sigmoid colon. This was removed piecemeal using the hot snare. The polyp appeared to be completely resected. A single clip was placed to approximate the mucosal defect. There was a 1 cm polyp in the distal sigmoid colon removed with a cold snare. The scope was retroflexed in the rectum and no other abnormalities were seen. Findings: A 3-4 cm polyp in the proximal colon and a 1 cm polyp in the distal colon EBL: 5 mL Scope withdrawal time: 22 minutes Sedation minutes: 40 minutes Post-procedure Disposition: PACU
--- NOTE | 2023-01-19 20:29 | PC.NURSE ---
2030- Patient is resting quietly in bed. Denies pain or abdominal discomfort. Call light and urinal available to patient. Patient bed alarm is engaged. Will monitor.
[2023-01-20] VITALS (26 sets, daily range): BP systolic 110–159; BP diastolic 53–80; PULSE 84–110; RESP 16–18; TEMP 36.2–37.7; O2SAT 89–99
[2023-01-20 03:37] LABS: Haptoglobin 89 mg/dL (34-355)
[2023-01-20 05:14] LABS: Hematocrit 21.4 % (41-53); INR 1.5 (0.9-1.3); Mean Corpuscular HGB Conc 32.6 % (30-36); Mean Corpuscular Hemoglobin 25.4 PG (26-34); Platelet Count 94 X10^3/uL (150-400); Prothrombin Time 17.4 SECONDS (10.1-12.7); Red Blood Cell Count 2.74 X10^6/uL (4.5-5.9); Red Cell Distribution Width 18.2 % (11.6-14.8); White Blood Cell Count 4.3 X10^3/uL (4.5-11.0)
[2023-01-20 05:19] LABS: Blood Urea Nitrogen 10 mg/dL (9-20); Calcium 8.4 mg/dL (8.4-10.2); Carbon Dioxide 24 mmol/L (22-32); Chloride 100 mmol/L (98-107); Estimated Glomerular Filt Rate > 60 mL/min (>60); Glucose 98 mg/dL (80-110); HEMOLYSIS < 15 (0-50); Potassium 3.8 mmol/L (3.4-5.1); Sodium 129 mmol/L (137-145)
[2023-01-20 05:20] LABS: Magnesium 1.8 mg/dL (1.6-2.3)
[2023-01-20 05:29] LABS: Add Manual Diff / Slide Review YES
[2023-01-20 05:41] LABS: Anisocytosis 1+; Neutrophils Absolute Manual 3096 /uL (3000-5900); Total Cells Counted 100
[2023-01-20 05:42] LABS: Microcytosis 1+; Platelet Estimate Decreased on smear
--- NOTE | 2023-01-20 07:58 | DI.RAD.S_ITS ---
PROCEDURE: XR ABDOMEN 1V INDICATIONS: s/p polyp removal TECHNIQUE: One view of the abdomen acquired. COMPARISON: None. FINDINGS: Surgical changes and devices: None. Bowel: Bowel gas pattern is normal. Soft tissues: No suspicious abdominal calcifications. Visualized solid organ contours appear normal in size. There is a thin radiolucency in the expected position of the medial aspect of the right hepatic dome measuring only approximately 1.5 mm in thickness. Bones: No suspicious bony lesions. IMPRESSION: There is a suspicion for a slight amount of free air just above the medial dome of the right hemidiaphragm, a questionable finding. Follow-up with [id number] decubitus plain film imaging after delay is recommended. Dictated by: George Barron M.D. on 01/20/2023 at 14:18 Approved by: George Barron M.D. on 01/20/2023 at 14:21
[2023-01-20] MEDS: FERROUS SULFATE 325 MG TABLET PO (08:55)
[2023-01-20] MEDS: PANTOPRAZOLE DR 40 MG TABLET PO (08:55)
[2023-01-20] MEDS: AMOXICILLIN 250 MG CAPSULE 500 MG PO (10:08)
--- NOTE | 2023-01-20 10:18 | OT.IPNOTE ---
Per nursing pt to get 2 units of blood today and doing well and states has no OT needs.
--- NOTE | 2023-01-20 11:36 | PT-IP ANOTE ---
pt continues to have low H&H. Hgb: 6.7 and Hct 21.4. talked with nurse and pt will be receiving blood transfusion. per nurse, plan is for pt to go home after transfusion. Nurse stated that pt is needing SBA for transfers but is weak. will f/u.
--- NOTE | 2023-01-20 15:36 | PC.NURSE ---
Completed discharge teaching with pt and spouse. Pt was taken with all belongings by wheelchair to pov, driven home by spouse.
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
--- NOTE | 2023-01-20 16:10 | PT-IP ANOTE ---
checked back on pt but pt not ready for pt and had just completed blood transfusion. checked back on pt after ~ 1 hour and pt was discharging. Per nurse, pt is able to mobilize SBA.
--- NOTE | 2023-01-21 08:38 | CM.DPNOTE ---
DC Note Late Entry Patient discharged yesterday, home w/spouse, close outpatient follow up recommended This [employer] had checked in with nursing team yesterday afternoon re any DC needs, concerns (?) and nursing denied, saying patient is at functional baseline and spouse transporting home, no HH needed Plan: DC home yesterday to the care of his spouse via private vehicle, no barriers identified JW
== END 2023-01-20 15:25 | disposition home or self-care (01) | DRG 811 ==
LOC: ED 12:49 → AC 14:08 → ICU 14:27
PROVIDERS: Surgery; Admitting Provider Student in an Organized Health Care Education/Training Program; Emergency Provider Emergency Medicine; PCP Nurse Practitioner Family; Referring Provider Emergency Medicine; Visit Provider Student in an Organized Health Care Education/Training Program
PROC: 0DJ08ZZ Inspection of Upper Intestinal Tract, Via Natural or Artificial Opening Endoscopic (ICD-10-PCS; CPT 43235; principal; 2023-01-19 14:00)
PROC: 0DJD8ZZ Inspection of Lower Intestinal Tract, Via Natural or Artificial Opening Endoscopic (ICD-10-PCS; CPT 45378; 2023-01-19 14:00)
DX: D62 Acute posthemorrhagic anemia (principal); K29.71 Gastritis, unspecified, with bleeding; E87.1 Hypo-osmolality and hyponatremia; N39.0 Urinary tract infection, site not specified; D61.818 Other pancytopenia; D50.9 Iron deficiency anemia, unspecified; Z87.891 Personal history of nicotine dependence; I48.0 Paroxysmal atrial fibrillation; Z79.01 Long term (current) use of anticoagulants; H54.7 Unspecified visual loss; Z89.202 Acquired absence of left upper limb, unspecified level; K63.5 Polyp of colon; H91.93 Unspecified hearing loss, bilateral
CPT/HCPCS: 36415; 36430; 43239; 45385; 70450; 71260; 72125; 74018; 74177; 80048; 80053; 81001; 82550; 82607; 82728; 82746; 83010; 83540; 83550; 83615; 83735; 84300; 84484; 85007; 85018; 85025; 85045; 85610; 85730; 86850; 86900; 86901; 87077; 87086; 87186; 87797; 93005; 93010; 96360; 99232; 99285; 99291; P9016; C9113; J2405; J3475; J7168; Q9967

== ENCOUNTER → 2023-03-06 13:41 | Outpatient (CLI) | payer MEDICARE, OTHER, SELFPAY ==
[2023-01-18 14:11] VITALS: BMI 24.0
[2023-03-06 14:31] LABS: Add Manual Diff / Slide Review NO; Basophils Absolute Auto 100 /uL (0-100); Basophils Percent Auto 1.5 % (0-2); Eosinophils Absolute Auto 100 /uL (0-450); Eosinophils Percent Auto 2.6 % (2-4); Hemoglobin 10.6 g/dL (13.5-17.5); Lymphocytes Absolute Auto 800 /uL (1100-4500); Lymphocytes Percent Auto 19.3 % (25-40); Mean Corpuscular HGB Conc 33.3 % (30-36); Mean Corpuscular Hemoglobin 28.9 PG (26-34); Monocytes Absolute Auto 600 /uL (0-900); Monocytes Percent Auto 13.1 % (3-14); Neutrophils Absolute Auto 2700 /uL (1500-7000); Neutrophils Percent Auto 63.5 % (50-75); Platelet Count 92 X10^3/uL (150-400); Red Blood Cell Count 3.68 X10^6/uL (4.5-5.9); Red Cell Distribution Width 26.5 % (11.6-14.8); White Blood Cell Count 4.2 X10^3/uL (4.5-11.0)
[2023-03-06 14:40] LABS: Anisocytosis 1+; Poikilocytosis 1+
== END ==
PROVIDERS: Family Provider Nurse Practitioner Family; PCP Nurse Practitioner Family; Referring Provider Surgery; Visit Provider Surgery
DX: D64.9 Anemia, unspecified (principal)
CPT/HCPCS: 36415; 85025; 99213

== ENCOUNTER 2023-06-06 11:15 | Outpatient (RCR) | payer OTHER, SELFPAY ==
[2023-01-18 14:11] VITALS: BMI 24.0
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
== END 2023-06-08 10:58 | disposition home or self-care (01) ==
LOC: PHYS 11:15
PROVIDERS: Family Provider Nurse Practitioner Family; PCP Nurse Practitioner Family; Referring Provider Nurse Practitioner Family; Visit Provider Nurse Practitioner Family
DX: R26.89 Other abnormalities of gait and mobility (principal); R29.6 Repeated falls; R26.81 Unsteadiness on feet; H54.8 Legal blindness, as defined in USA; Z89.222 Acquired absence of left upper limb above elbow; M25.511 Pain in right shoulder
CPT/HCPCS: 97110; 97112; 97140; 97163

== ENCOUNTER 2023-10-03 16:56 | Emergency (ER) | payer OTHER, SELFPAY ==
[2023-01-18 14:11] VITALS: BMI 24.0
[2023-10-03 17:10] VITALS: BP 143/83; PULSE 73; RESP 16; TEMP 36.9; O2SAT 98; BMI 24.4
[2023-10-03 17:36] LABS: Add Manual Diff / Slide Review NO; Basophils Absolute Auto 100 /uL (0-100); Basophils Percent Auto 1.4 % (0-2); Eosinophils Absolute Auto 0 /uL (0-450); Eosinophils Percent Auto 0.4 % (2-4); Hematocrit 31.8 % (41-53); Hemoglobin 10.3 g/dL (13.5-17.5); Lymphocytes Absolute Auto 800 /uL (1100-4500); Lymphocytes Percent Auto 18.2 % (25-40); Mean Corpuscular HGB Conc 32.5 % (30-36); Mean Corpuscular Hemoglobin 27.3 PG (26-34); Mean Corpuscular Volume 84.1 fL (80-100); Monocytes Absolute Auto 700 /uL (0-900); Monocytes Percent Auto 15.3 % (3-14); Neutrophils Absolute Auto 2800 /uL (1500-7000); Neutrophils Percent Auto 64.7 % (50-75); Platelet Count 77 X10^3/uL (150-400); Red Blood Cell Count 3.79 X10^6/uL (4.5-5.9); Red Cell Distribution Width 16.2 % (11.6-14.8); White Blood Cell Count 4.4 X10^3/uL (4.5-11.0)
[2023-10-03] MEDS: PANTOPRAZOLE 40 MG VIAL 80 MG IV (17:42)
[2023-10-03 17:43] LABS: INR 1.2 (0.9-1.3)
[2023-10-03 17:45] LABS: PTT Partial Thromboplastin Tim 34 SECONDS (25.1-36.5)
[2023-10-03 17:58] LABS: Alanine Aminotransferase 37 IU/L (<50); Albumin 4.3 g/dL (3.5-5.0); Albumin Globulin Ratio 1.3 (1.0-2.8); Alkaline Phosphatase 133 U/L (38-126); Aspartate Aminotransferase 83 IU/L (17-59); BUN Creatinine Ratio 17.6 (6-22); Bilirubin Total 1.7 mg/dL (0.2-1.3); Blood Urea Nitrogen 16 mg/dL (9-20); Calcium 9.4 mg/dL (8.4-10.2); Carbon Dioxide 23 mmol/L (22-32); Chloride 103 mmol/L (98-107); Estimated Glomerular Filt Rate > 60 mL/min (>60); Globulin 3.3 g/dL (1.7-4.1); Glucose 131 mg/dL (80-110); HEMOLYSIS < 15 (0-50); Sodium 134 mmol/L (137-145); Total Protein 7.6 g/dL (6.3-8.2)
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
[2023-10-03 19:34] VITALS: BP 156/80; PULSE 80; O2SAT 97
== END 2023-10-03 19:34 | disposition home or self-care (01) ==
PROVIDERS: Emergency Medicine; Emergency Provider Emergency Medicine; Family Provider Nurse Practitioner Family; PCP Nurse Practitioner Family
DX: D64.9 Anemia, unspecified (principal)
CPT/HCPCS: 36415; 80053; 85025; 85610; 85730; 86850; 86900; 86901; 96374; 99284; C9113

== ENCOUNTER 2023-11-25 18:40 | Emergency (ER) | payer OTHER, SELFPAY ==
[2023-01-18 14:11] VITALS: BMI 24.0
[2023-11-25] VITALS (14 sets, daily range): BP systolic 120–141; BP diastolic 59–80; PULSE 75–93; RESP 10–31; TEMP 36.5–37.1; O2SAT 93–100; BMI 22.5
--- NOTE | 2023-11-25 18:59 | EKG_ITS ---
[address] [address] Test Date: 2023-11-25 Pat Name: Alessandro Vazuqez Department: Room: Gender: Male [employer] [place] Hand: TOSHA : 1950 Requested By: Order Number: [id number] Reading MD: Abhilash Nielsen Measurements Intervals Mitchell Rate: 79 P: OK: QRS: 78 QRSD: 82 T: 74 QT: 372 QTc: 426 Interpretive Statements Normal sinus rhythm Similar to prior tracing Artifact makes interpretation limited Electronically Signed On 11-26-2023 8:23:13 PDT by Abhilash Nielsen
--- NOTE | 2023-11-25 19:02 | ED_ITS ---
HPI - General Adult General Chief complaint: Trauma Stated complaint: Trauma Time Seen by Provider: 11/25/23 18:53 History of Present Illness HPI narrative: 73-year-old male with history of blindness, was ambulating on the sidewalk heading toward the [facility], using his walking stick for blindness, tripped on something, fell forward, struck his forehead, no loss of consciousness, but has pain to his forehead and nose, also small abrasion to his left proximal arm at site of prior old amputation. He complains of posterior neck pain. He denies pain to his upper back, lower back, anterior chest, flanks, abdomen, right upper extremity, both lower extremities. He denies use of blood thinner medications. He denies nausea vomiting. He denies feeling of sensation weakness face arm or leg. Related Data Home Medications Medication Instructions Recorded Confirmed lisinopril 40 mg tablet 40 mg PO DAILY 11/15/19 03/06/23 diltiazem HCl 120 mg capsule,24 180 mg PO DAILY 11/16/19 03/06/23 hr,extended release calcium phosphate,dibasic 77 1 tab PO DAILY 01/18/23 03/06/23 mg-vitamin D3 400 unit tablet latanoprost 0.005 % eye drops 1 drp ophthalmic (eye) DAILY 01/18/23 03/06/23 rivaroxaban 20 mg tablet (Xarelto) 20 mg PO DAILY 11/25/23 11/25/23 Previous Rx's Medication Instructions Recorded amoxicillin 500 mg tablet 500 mg PO Q8H #14 tabs 01/20/23 ferrous sulfate 325 mg (65 mg 325 mg PO BIDWM #60 tabs 01/20/23 iron) tablet pantoprazole 40 mg tablet,delayed 40 mg PO 0700,2100 #60 tabs 01/20/23 release Allergies Allergy/AdvReac Type Severity Reaction Status Date / Time No Known Drug Allergies Allergy Verified 10/03/23 17:13 Review of Systems Review of Systems Narrative: per HPI Patient History Medical History 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 HEAD: Mid-forehead laceartion Z shaped, about 2.5 cm total length, right eye with asymmetrical appearing pupil, says that he can not see out of that not right eye, left eye lateral deviation no visible pupil, patient says he can not see out of the left eye, patient states that he is fine. EYES: No scleral icterus. No injection or drainage. ENT: Nose with anterior abrasion changes, also small abrasion tip of nose. No gross deformity. No blood in nasal ala or edema to nasal septum. Throat without erythema, tonsillar hypertrophy or exudate. Airway patent. NECK: Trachea midline. Non tender CARDIOVASCULAR: Regular rate and rhythm without murmurs, gallops, or rubs. RESPIRATORY: Clear to auscultation. Breath sounds equal bilaterally. No wheezes, rales, or rhonchi. GASTROINTESTINAL: Abdomen soft, non-tender, nondistended. EXTREMITIES: No edema or joint tenderness. Status post left proximal upper extremity amputation old appearing scars, small abrasion lateral aspect distal stump. No active bleeding BACK: Nontender without deformity or crepitance. No flank tenderness. NEURO: AOx3. SKIN: No rash or erythema of visible areas Initial Vital Signs Initial Vital Signs: Vital Signs Temperature 97.7 F 11/25/23 18:40 Pulse Rate 84 11/25/23 18:40 Respiratory Rate 18 11/25/23 18:40 Blood Pressure 133/64 11/25/23 18:40 Pulse Oximetry 96 11/25/23 18:40 Oxygen Delivery Method Room Air 11/25/23 18:40 Procedures Laceration Repair Laceration 1: Time of procedure: 23:14 Site: face Size (cm): 2.5 Description: irregular (Z-shaped) Depth: simple, single layer Local Anesthetic: lidocaine 1% Amount of anesthesia used (mL): 4 Skin layer closed with: nylon Skin layer suture size: 4-0 Number of sutures: 6 (5 simples, one corner stitch) Course Orders Ordered: ED Orders 11/25/23 19:58 EKG-12 Lead Stat 11/25/23 20:00 Type and Screen Stat 11/25/23 20:22 Urine Culture Stat Urine Drug Screen, Rapid Stat Urine Microscopic Stat Discontinued Medications Bacitracin (Bacitracin Oint 0.9 Gm Pckt) 1 applic TOP NOW ONE Stop: 11/25/23 23:27 Last Admin: 11/25/23 23:30 Dose: 1 applic Documented By: SANTIAGO Diphtheria/Tetanus/Acell Pertussis (Tet,Diph,Pertuss(Acell),Vac/Pf 0.5 Ml Syringe) 0.5 ml IM .ONCE ONE Stop: 11/25/23 19:35 Last Admin: 11/25/23 20:36 Dose: 0.5 ml Documented By: ROMAIN Sodium Chloride (Normal Saline 0.9%) 1,000 mls @ 1,000 mls/hr IV BOLUS ONE Stop: 11/25/23 21:14 Last Infusion: 11/25/23 21:39 Dose: Infused Documented By: Admin: 11/25/23 20:37 Dose: 1,000 mls/hr Documented By: ROMAIN Lidocaine HCl (Lidocaine 1% 20 Ml) 20 ml INJ INTRA-OP ONE Stop: 11/25/23 22:33 Last Admin: 11/25/23 22:35 Dose: 20 ml Documented By: ROMAIN Vital Signs Vital signs: Vital Signs - 8 hr 11/25/23 21:00 11/25/23 21:00 11/25/23 21:30 Temperature Pulse Rate 83 Respiratory Rate 23 Blood Pressure 138/65 138/64 Pulse Oximetry 96 Oxygen Delivery Method 11/25/23 21:30 11/25/23 22:00 11/25/23 22:00 Temperature Pulse Rate 84 82 Respiratory Rate 26 H Blood Pressure 127/60 Pulse Oximetry 95 Oxygen Delivery Method 11/25/23 22:30 11/25/23 22:30 11/25/23 23:00 Temperature Pulse Rate 87 Respiratory Rate 10 L Blood Pressure 129/60 139/61 Pulse Oximetry Oxygen Delivery Method 11/25/23 23:00 11/25/23 23:30 11/25/23 23:30 Temperature Pulse Rate 85 93 H Respiratory Rate 31 H 20 Blood Pressure 129/60 Pulse Oximetry Oxygen Delivery Method 11/25/23 23:56 Temperature 98.7 F Pulse Rate 75 Respiratory Rate 16 Blood Pressure 125/80 Pulse Oximetry 99 Oxygen Delivery Method Room Air Medical Decision Making Medical Records Medical records reviewed: Yes I reviewed the patient's medical records. Lab Data Lab results reviewed: Yes I reviewed the patient's lab results. 11/25/23 18:55 11/25/23 18:55 Labs: Lab Results 11/25/23 11/25/23 11/25/23 Range/Units 18:55 20:00 20:22 WBC 7.2 (4.5-11.0) X10^3/uL RBC 3.35 L (4.5-5.9) X10^6/uL Hgb 10.2 L (13.5-17.5) g/dL Hct 30.1 L (41-53) % MCV 90.0 (80-100) fL MCH 30.5 (26-34) PG MCHC 33.9 (30-36) % RDW 24.6 H (11.6-14.8) % Plt Count 86 L (150-400) X10^3/uL Neut % (Auto) 57.5 (50-75) % Lymph % (Auto) 25.5 (25-40) % [place] % (Auto) 14.8 H (3-14) % Eos % (Auto) 0.9 L (2-4) % Baso % (Auto) 1.3 (0-2) % Neut # (Auto) 4200 (1999-3989) /uL Lymph # (Auto) 1800 (4762-5888) /uL [place] # (Auto) 1100 H (0-900) /uL Eos # (Auto) 100 (0-450) /uL Baso # (Auto) 100 (0-100) /uL RBC Morphology See below Anisocytosis 2+ H PT 26.3 H (9.4-12.5) SECONDS INR 2.3 H (0.9-1.3) APTT 38 H (25.1-36.5) SECONDS Sodium 129 L (137-145) mmol/L Potassium 4.8 (3.4-5.1) mmol/L Chloride 98 (98-107) mmol/L Carbon Dioxide 20 L (22-32) mmol/L BUN 21 H (9-20) mg/dL Creatinine 1.47 H (0.66-1.25) mg/dL Estimated GFR 50 L (>60) mL/min BUN/Creatinine Ratio 14.3 (6-22) Glucose 110 (80-110) mg/dL Lactate 2.6 H (0.7-2.1) mmol/L Calcium 9.2 (8.4-10.2) mg/dL Total Bilirubin 1.4 H (0.2-1.3) mg/dL AST 94 H (17-59) IU/L ALT 39 (<50) IU/L Alkaline Phosphatase 110 (38-126) U/L Total Protein 6.7 (6.3-8.2) g/dL Albumin 3.6 (3.5-5.0) g/dL Globulin 3.1 (1.7-4.1) g/dL Albumin/Globulin Ratio 1.2 (1.0-2.8) Lipase 331 H (23-300) U/L Urine RBC 0-1/hpf (0-5/HPF) Urine WBC 5-10/hpf H (0-5/HPF) Ur Squamous Epith Cells 5-10 /hpf H (0-5/HPF) Urine Bacteria Few (2-10) H (None) Urine Mucus 1+ H (Negative) Ur Culture Indicated? Specimen cultured Vol Urine Centrifuged 10ml (spun) U Opiates 300ng/mL cut Negative (Negative) Ur Oxycodone Screen Negative (Negative) Urine Methadone Screen Negative (Negative) Ur Barbiturates Screen Negative (Negative) U Tricyclic Antidepress Negative (Negative) Ur Phencyclidine Scrn Negative (Negative) Ur Amphetamines Screen Negative (Negative) U Methamphetamines Scrn Negative (Negative) Ur MDMA Scrn (Ecstasy) Negative (Negative) U Benzodiazepines Scrn Negative (Negative) Urine Cocaine Screen Negative (Negative) U Marijuana (THC) Screen Positive H (Negative) Urine pH Normal (Normal) Urine Specific [place] Normal (Normal) Ethyl Alcohol 208 H ( - 10) mg/dL Ur Creatinine Normal (Normal) Blood Type A Positive Antibody Screen Negative 11/25/23 Range/Units 21:43 WBC (4.5-11.0) X10^3/uL RBC (4.5-5.9) X10^6/uL Hgb (13.5-17.5) g/dL Hct (41-53) % MCV (80-100) fL MCH (26-34) PG MCHC (30-36) % RDW (11.6-14.8) % Plt Count (150-400) X10^3/uL Neut % (Auto) (50-75) % Lymph % (Auto) (25-40) % [place] % (Auto) (3-14) % Eos % (Auto) (2-4) % Baso % (Auto) (0-2) % Neut # (Auto) (0116-8498) /uL Lymph # (Auto) (3637-9032) /uL [place] # (Auto) (0-900) /uL Eos # (Auto) (0-450) /uL Baso # (Auto) (0-100) /uL RBC Morphology Anisocytosis PT (9.4-12.5) SECONDS INR (0.9-1.3) APTT (25.1-36.5) SECONDS Sodium (137-145) mmol/L Potassium (3.4-5.1) mmol/L Chloride (98-107) mmol/L Carbon Dioxide (22-32) mmol/L BUN (9-20) mg/dL Creatinine (0.66-1.25) mg/dL Estimated GFR (>60) mL/min BUN/Creatinine Ratio (6-22) Glucose (80-110) mg/dL Lactate 2.0 (0.7-2.1) mmol/L Calcium (8.4-10.2) mg/dL Total Bilirubin (0.2-1.3) mg/dL AST (17-59) IU/L ALT (<50) IU/L Alkaline Phosphatase (38-126) U/L Total Protein (6.3-8.2) g/dL Albumin (3.5-5.0) g/dL Globulin (1.7-4.1) g/dL Albumin/Globulin Ratio (1.0-2.8) Lipase (23-300) U/L Urine RBC (0-5/HPF) Urine WBC (0-5/HPF) Ur Squamous Epith Cells (0-5/HPF) Urine Bacteria (None) Urine Mucus (Negative) Ur Culture Indicated? Vol Urine Centrifuged U Opiates 300ng/mL cut (Negative) Ur Oxycodone Screen (Negative) Urine Methadone Screen (Negative) Ur Barbiturates Screen (Negative) U Tricyclic Antidepress (Negative) Ur Phencyclidine Scrn (Negative) Ur Amphetamines Screen (Negative) U Methamphetamines Scrn (Negative) Ur MDMA Scrn (Ecstasy) (Negative) U Benzodiazepines Scrn (Negative) Urine Cocaine Screen (Negative) U Marijuana (THC) Screen (Negative) Urine pH (Normal) Urine Specific [place] (Normal) Ethyl Alcohol ( - 10) mg/dL Ur Creatinine (Normal) Blood Type Antibody Screen Urine Dip Bedside Urine Glucose Negative Bedside Urine Bilirubin - Negative Bedside Urine Ketone - Negative Urine Specific [place] 1.020 Bedside Urine Occult Blood +/- Bedside Urine pH 6.0 Bedside Urine Protein - Negative Bedside Urine Urobilinogen - Negative Bedside Urine Nitrite - Negative Bedside Urine Leukocytes + 70 Esterase Point of care testing: Urine Dip Bedside Urine Glucose Negative Bedside Urine Bilirubin - Negative Bedside Urine Ketone - Negative Urine Specific [place] 1.020 Bedside Urine Occult Blood +/- Bedside Urine pH 6.0 Bedside Urine Protein - Negative Bedside Urine Urobilinogen - Negative Bedside Urine Nitrite - Negative Bedside Urine Leukocytes + [address] scan - head: Radiologist's Impression: [address] [address] [address] Scan Report Signed Patient: Alessandro Vazquez MR#: [id number] : 1950 Acct:[id number] Age/Sex: 73 / M Date of Service: 11/25/23 Loc: ED Accession Number: [id number] Procedure: CT head/brain wo con Ordering Provider: Liban Nayak MD PROCEDURE: CT HEAD/BRAIN WO CON INDICATIONS: trauma TECHNIQUE: Noncontrast 4.5 mm thick angled axial sections acquired from the foramen magnum to the vertex, with coronal and sagittal reformats. For radiation dose reduction, the following was used: automated exposure control, adjustment of mA and/or kV according to patient size. COMPARISON: [facility], CT, CT HEAD/BRAIN WO CON, 01/18/2023, 11:44. [facility], CT, CT HEAD/BRAIN WO CON, 06/17/2022, 14:23. FINDINGS: Image quality: Diagnostic. CSF spaces: Basal cisterns are patent. No extra-axial fluid collections. The ventricles are symmetric in size and shape. Brain: No intracranial bleeds or masses. There is cerebral volume loss for age, with resultant ventricular and sulcal prominence. There are periventricular and deep white matter chronic small vessel ischemic changes. There is intracranial internal carotid artery atherosclerosis. Skull and face: Calvarium and visualized facial bones appear intact, without suspicious lesions. 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 Sinuses: Visualized sinuses and mastoids are clear. IMPRESSION: No acute intracranial pathology. 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 Dictated by: George Barron M.D. on 11/25/2023 at 20:22 Approved by: George Barron M.D. on 11/25/2023 at 20:25 CT Face: Radiologist's Impression: [place] [address] CT Scan Report Signed Patient: Alessandro Vazquez MR#: [id number] : 1950 Acct:[id number] Age/Sex: 73 / M Date of Service: 11/25/23 Loc: ED Accession Number: [id number] Procedure: CT facial bones wo con Ordering Provider: Liban Nayak MD PROCEDURE: CT FACIAL BONES WO CON INDICATIONS: GLF, blind, tripped, nasal and face abrasions TECHNIQUE: Noncontrast 2.5 mm thick axial images acquired from the mandible through the frontal sinuses, with coronal and sagittal reformatting. For radiation dose reduction, the following was used: automated exposure control, adjustment of mA and/or kV according to patient size. COMPARISON: None. FINDINGS: Image quality: Excellent. Bones and teeth: Orbital can are intact. Sinus can show no fracture or deformity. Nasal bones and septum are intact. Visualized portions of the mandible demonstrate no fractures or subluxation. Zygomatic arches are intact. Pterygoid plates are intact. Visualized portions of the skull base and auditory canals are intact. Sinuses: Paranasal sinuses are aerated, without fluid levels, mucosal thickening, or mucoceles. Mastoid air cells are aerated. Soft tissues: No masses, or fluid collections. There is soft tissue edema involving the midline and right forehead region without underlying. No enlarged lymph nodes. No soft tissue lacerations or debris. Chronic distortion of the globes bilaterally, left greater than right. Vascular: Visualized vascular structures appear normal in the absence of contrast. Bony vascular foramina and canals are intact. IMPRESSION: No osseous trauma found. Soft tissue swelling prominent over the midline and right paramedian forehead region. Chronic distortion of the globes bilaterally, left greater than right, previously documented. Dictated by: George Barron M.D. on 11/25/2023 at 20:25 Approved by: George Barron M.D. on 11/25/2023 at 20:27 CT - cervical spine: Radiologist's Impression: [address] [address] [address] Scan Report Signed Patient: Alessandro Vazquez MR#: [id number] : 1950 Acct:[id number] Age/Sex: 73 / M Date of Service: 11/25/23 Loc: ED Accession Number: [id number] Procedure: CT cervical spine wo con Ordering Provider: Liban Nayak MD PROCEDURE: CT CERVICAL SPINE WO CON INDICATIONS: fall/thinners TECHNIQUE: Noncontrast 3 mm thick sections acquired from the skull base to the T4 level. Sagittal and coronal reformats were then constructed. For radiation dose reduction, the following was used: automated exposure control, adjustment of mA and/or kV according to patient size. COMPARISON: [facility], CT, CT CERVICAL SPINE WO CON, 01/18/2023, 11:44. [facility], CT, CT CERVICAL SPINE WO CON, 06/17/2022, 14:23. FINDINGS: Image quality: Excellent. Bones: No fractures or dislocations. Visualized superior ribs are intact. Soft tissues: Prevertebral soft tissues are normal in thickness. No paravertebral hematomas. No apical pneumothoraces. 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 Dictated by: George Barron M.D. on 11/25/2023 at 20:38 Approved by: George Barron M.D. on 11/25/2023 at 20:39 ECG Data Attestation: I personally reviewed and interpreted this ECG as follows: Interpretation: Normal sinus rhythm with rate 79, no obvious ST segment elevation or depression changes. QRS 82. QTC 426. Artifact noted that interferes with some P waves. MDM Narrative Medical decision making narrative: 73-year-old male with history of blindness, recent alcohol use, tripped while using his blindness cane on sidewalk, struck forehead, takes chronic blood thinner medications. Laceration to the forehead, abrasions to the nose. CT head face cervical spine studies ordered. EKG without obvious ischemic changes normal sinus rhythm. Labs showed sodium 129 similar in the past, otherwise unremarkable. CT head, face, cervical spine showed no acute bony injuries, no brain injuries, no neck cervical cord injuries. See radiologist's report. Laceration repaired with nylon sutures after local anesthetic, good result. Tetanus shot update given by nursing. Blood alcohol level 208 noted, observe in the emergency department for 2-3 hours, in room would like to take him home. Home with . Advised wound check 2 days, suture removal likely 7 days. Return precautions discussed. Critical Care Time Critical Care Time Critical Care Time: Yes Total Critical Care Time: 31 Attestation: The high probability of a clinically significant, sudden or life threatening deterioration of the [cardiopulmonary, craniofacial, neurologic] system(s) required my full and direct attention, intervention and personal management. The aggregate critical care time was [31] minutes. This time is in addition to time spent performing reported procedures but includes the following: [x] Data Review and interpretation [x] Patient assessment and monitoring of vital signs [x] Documentation [x] Medication orders and management Discharge Plan Departure Patient Disposition: Home Clinical Impression: Fall, History of blindness, Contusion of nose, Abrasion of nose, Forehead laceration, Alcohol intoxication, Chronic anticoagulation Activity Restrictions/Additional Instructions: 73-year-old male with history of blindness, ground level fall with recent alcohol use, laceration of the forehead, on chronic blood thinner medications. CT scan imaging of the head face and cervical spine, no brain injuries or craniofacial bony injuries. No neck injuries on imaging. Laceration was closed with stitches. Wound check advised to days with your regular provider. Tetanus shot was given in the emergency department. Home with . Wound check in 2 days. Prescriptions: No Action lisinopril 40 mg Tablet 40 mg PO DAILY diltiazem HCl 120 mg Capsule,Extended Release 24 Hr 180 mg PO DAILY latanoprost 0.005 % Drops 1 drp OPHTHALMIC (EYE) DAILY Rx Instructions: R eye only calcium phos,dibas-vitamin D3 77-400 mg-unit Tablet 1 tab PO DAILY pantoprazole 40 mg Tablet,Delayed Release (Dr/Ec) 40 mg PO 0700,2100 Qty: 60 0RF ferrous sulfate 325 mg (65 mg iron) Tablet 325 mg PO BIDWM Qty: 60 0RF amoxicillin 500 mg tablet 500 mg PO Q8H Qty: 14 0RF Xarelto 20 mg tablet 20 mg PO DAILY Referrals: Anish Reyes ARNP [Primary Care Provider] - Stand Alone Forms: Patient Portal/API
--- NOTE | 2023-11-25 19:15 | DI.CT.S_ITS ---
PROCEDURE: CT HEAD/BRAIN WO CON INDICATIONS: trauma TECHNIQUE: Noncontrast 4.5 mm thick angled axial sections acquired from the foramen magnum to the vertex, with coronal and sagittal reformats. For radiation dose reduction, the following was used: automated exposure control, adjustment of mA and/or kV according to patient size. COMPARISON: [facility], CT, CT HEAD/BRAIN WO CON, 01/18/2023, 11:44. [facility], CT, CT HEAD/BRAIN WO CON, 06/17/2022, 14:23. FINDINGS: Image quality: Diagnostic. CSF spaces: Basal cisterns are patent. No extra-axial fluid collections. The ventricles are symmetric in size and shape. Brain: No intracranial bleeds or masses. There is cerebral volume loss for age, with resultant ventricular and sulcal prominence. There are periventricular and deep white matter chronic small vessel ischemic changes. There is intracranial internal carotid artery atherosclerosis. Skull and face: Calvarium and visualized facial bones appear intact, without suspicious lesions. 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 Sinuses: Visualized sinuses and mastoids are clear. IMPRESSION: No acute intracranial pathology. 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 Dictated by: George Barron M.D. on 11/25/2023 at 20:22 Approved by: George Barron M.D. on 11/25/2023 at 20:25
--- NOTE | 2023-11-25 19:36 | DI.CT.S_ITS ---
PROCEDURE: CT CERVICAL SPINE WO CON INDICATIONS: fall/thinners TECHNIQUE: Noncontrast 3 mm thick sections acquired from the skull base to the T4 level. Sagittal and coronal reformats were then constructed. For radiation dose reduction, the following was used: automated exposure control, adjustment of mA and/or kV according to patient size. COMPARISON: [facility], CT, CT CERVICAL SPINE WO CON, 01/18/2023, 11:44. [facility], CT, CT CERVICAL SPINE WO CON, 06/17/2022, 14:23. FINDINGS: Image quality: Excellent. Bones: No fractures or dislocations. Visualized superior ribs are intact. Soft tissues: Prevertebral soft tissues are normal in thickness. No paravertebral hematomas. No apical pneumothoraces. 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 Dictated by: George Barron M.D. on 11/25/2023 at 20:38 Approved by: George Barron M.D. on 11/25/2023 at 20:39
[2023-11-25 19:46] LABS: INR 2.3 (0.9-1.3); Prothrombin Time 26.3 SECONDS (9.4-12.5)
[2023-11-25 19:48] LABS: PTT Partial Thromboplastin Tim 38 SECONDS (25.1-36.5)
[2023-11-25 19:50] LABS: Lactate (Lactic Acid) 2.6 mmol/L (0.7-2.1)
[2023-11-25 19:51] LABS: Add Manual Diff / Slide Review NO; Alanine Aminotransferase 39 IU/L (<50); Albumin 3.6 g/dL (3.5-5.0); Albumin Globulin Ratio 1.2 (1.0-2.8); Alkaline Phosphatase 110 U/L (38-126); Aspartate Aminotransferase 94 IU/L (17-59); BUN Creatinine Ratio 14.3 (6-22); Basophils Absolute Auto 100 /uL (0-100); Basophils Percent Auto 1.3 % (0-2); Bilirubin Total 1.4 mg/dL (0.2-1.3); Blood Urea Nitrogen 21 mg/dL (9-20); Calcium 9.2 mg/dL (8.4-10.2); Carbon Dioxide 20 mmol/L (22-32); Chloride 98 mmol/L (98-107); Eosinophils Absolute Auto 100 /uL (0-450); Eosinophils Percent Auto 0.9 % (2-4); Estimated Glomerular Filt Rate 50 mL/min (>60); Ethanol (ETOH) 208 mg/dL; Globulin 3.1 g/dL (1.7-4.1); Glucose 110 mg/dL (80-110); HEMOLYSIS < 15 (0-50); Hematocrit 30.1 % (41-53); Hemoglobin 10.2 g/dL (13.5-17.5); Lipase 331 U/L (23-300); Lymphocytes Absolute Auto 1800 /uL (1100-4500); Lymphocytes Percent Auto 25.5 % (25-40); Mean Corpuscular HGB Conc 33.9 % (30-36); Mean Corpuscular Hemoglobin 30.5 PG (26-34); Monocytes Absolute Auto 1100 /uL (0-900); Monocytes Percent Auto 14.8 % (3-14); Neutrophils Absolute Auto 4200 /uL (1500-7000); Neutrophils Percent Auto 57.5 % (50-75); Platelet Count 86 X10^3/uL (150-400); Potassium 4.8 mmol/L (3.4-5.1); Red Blood Cell Count 3.35 X10^6/uL (4.5-5.9); Red Cell Distribution Width 24.6 % (11.6-14.8); Sodium 129 mmol/L (137-145); Total Protein 6.7 g/dL (6.3-8.2); White Blood Cell Count 7.2 X10^3/uL (4.5-11.0)
[2023-11-25 20:02] LABS: Anisocytosis 2+
[2023-11-25] MEDS: TET,DIPH,PERTUSS(ACELL),VAC/PF 0.5 ML SYRINGE IM (20:36)
[2023-11-25] MEDS: SODIUM CHLORIDE 0.9% 1,000 ML 1000 ML IV (20:37)
[2023-11-25 20:39] LABS: Bacteria Urine Few (2-10); Culture Indicated Urine Specimen Cultured; Mucus Urine 1+ (Negative); RBC Urine 0-1/HPF (0-5/HPF); Squamous Epithelial Cell Urine 5-10 /HPF (0-5/HPF); Urine Volume 10mL (spun); WBC Urine 5-10/HPF (0-5/HPF)
[2023-11-25 21:14] LABS: UR Morphine/Opiate cutoff 300 Negative (Negative); Ur Creatinine Normal (Normal); Ur Specific Gravity Normal (Normal); Urine Amphetamines Negative (Negative); Urine Barbiturates Negative (Negative); Urine Benzodiazepines Negative (Negative); Urine Cocaine Negative (Negative); Urine MDMA Negative (Negative); Urine Methadone Negative (Negative); Urine Methamphetamines Negative (Negative); Urine Phencyclidine Negative (Negative); Urine Tetrahydrocannabinol Positive (Negative); Urine Tricyclic Antidepressant Negative (Negative); Urine pH Normal (Normal)
[2023-11-25 21:15] LABS: Urine Oxycodone Negative (Negative)
[2023-11-25 21:17] LABS: Reflexed Lactate in 2 Hours Y
[2023-11-25] MEDS: LIDOCAINE 1% 20 ML INJ (22:35)
[2023-11-25] MEDS: BACITRACIN OINT 0.9 GM PCKT 1 APPLIC TOP (23:30)
== END 2023-11-25 23:58 | disposition home or self-care (01) ==
PROVIDERS: Emergency Provider Emergency Medicine; Family Provider Nurse Practitioner Family; PCP Nurse Practitioner Family
DX: S01.81XA Laceration without foreign body of other part of head, initial encounter (principal); M54.2 Cervicalgia; S00.31XA Abrasion of nose, initial encounter; H54.7 Unspecified visual loss; F10.129 Alcohol abuse with intoxication, unspecified; W01.0XXA Fall on same level from slipping, tripping and stumbling without subsequent striking against object, initial encounter; Y90.7 Blood alcohol level of 200-239 mg/100 ml; Z79.01 Long term (current) use of anticoagulants; Z23 Encounter for immunization
CPT/HCPCS: 12011; 36415; 70450; 70486; 72125; 80053; 80305; 80320; 81003; 81015; 83605; 83690; 85025; 85610; 85730; 86850; 86900; 86901; 87077; 87086; 87186; 90471; 93005; 99284; 90715

== ENCOUNTER 2023-11-26 10:58 | Emergency (ER) | payer OTHER, SELFPAY ==
[2023-01-18 14:11] VITALS: BMI 24.0
[2023-11-26 11:12] VITALS: BP 174/78; PULSE 92; RESP 16; TEMP 36.8; O2SAT 98; BMI 22.5
--- NOTE | 2023-11-26 12:47 | ED_ITS ---
HPI - Recheck/Abnormal Lab/Rx General Chief Complaint: Recheck/Abnormal Lab/Rx Stated Complaint: Forehead bleeding Time Seen by Provider: 11/26/23 11:36 History of Present Illness HPI narrative: 73-year-old male presents for bleeding from forehead laceration. Patient was seen last night after hitting his head. He had a laceration on his forehead that was sutured and patient was discharged home. He woke up in the middle of the night with the laceration oozing. He was not been able to control the bleeding. Patient does take Xarelto for atrial fibrillation. Denies new accident or injury Related Data Home Medications Medication Instructions Recorded Confirmed lisinopril 40 mg tablet 40 mg PO DAILY 11/15/19 03/06/23 diltiazem HCl 120 mg capsule,24 180 mg PO DAILY 11/16/19 03/06/23 hr,extended release calcium phosphate,dibasic 77 1 tab PO DAILY 01/18/23 03/06/23 mg-vitamin D3 400 unit tablet latanoprost 0.005 % eye drops 1 drp ophthalmic (eye) DAILY 01/18/23 03/06/23 rivaroxaban 20 mg tablet (Xarelto) 20 mg PO DAILY 11/25/23 11/25/23 Previous Rx's Medication Instructions Recorded amoxicillin 500 mg tablet 500 mg PO Q8H #14 tabs 01/20/23 ferrous sulfate 325 mg (65 mg 325 mg PO BIDWM #60 tabs 01/20/23 iron) tablet pantoprazole 40 mg tablet,delayed 40 mg PO 0700,2100 #60 tabs 01/20/23 release Allergies Allergy/AdvReac Type Severity Reaction Status Date / Time No Known Drug Allergies Allergy Verified 10/03/23 17:13 Patient History Medical History 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 Family History Mother Lymphoma Social History household members: significant other Smoking Status: Former smoker alcohol intake: current Smoking Status: Former smoker alcohol intake frequency: 3 or more drinks per day Alcohol type: beer, wine and hard liquor Substance Use Type: marijuana Exam Initial Vital Signs Initial Vital Signs: Vital Signs Temperature 98.3 F 11/26/23 11:12 Pulse Rate 92 H 11/26/23 11:12 Respiratory Rate 16 11/26/23 11:12 Blood Pressure 174/78 H 11/26/23 11:12 Pulse Oximetry 98 11/26/23 11:12 Oxygen Delivery Method Room Air 11/26/23 11:12 Const: Awake, alert, appears chronically unwell Head: 2 cm vertical laceration center forehead with slow oozing of blood Skin: Sutures in center forehead intact Neuro: AO x3, CN II-XII grossly intact, moves all extremities Course Orders Ordered: Discontinued Medications Acetaminophen (Acetaminophen 325 Mg Tablet) 650 mg PO NOW ONE Stop: 11/26/23 12:41 Last Admin: 11/26/23 12:58 Dose: 650 mg Documented By: ALMAS Hydrocodone Bitart/Acetaminophen (Hydrocodone/Acet 5/325 Tablet) 1 tab PO NOW ONE Stop: 11/26/23 12:41 Last Admin: 11/26/23 12:58 Dose: 1 tab Documented By: ALMAS Lidocaine/Epinephrine (Lidocaine 1% W/Epi) 1 ml SUBCUT NOW ONE Stop: 11/26/23 13:42 Vital Signs Vital signs: Vital Signs - 8 hr 11/26/23 11:12 Temperature 98.3 F Pulse Rate 92 H Respiratory Rate 16 Blood Pressure 174/78 H Pulse Oximetry 98 Oxygen Delivery Method Room Air MDM - Recheck/Abnormal Lab/Rx MDM Narrative Medical decision making narrative: Continuous slow oozing of blood from forehead laceration. A small amount of 1% lidocaine with epinephrine was infiltrated into the area of bleeding and SurgiSeal applied with excellent hemostasis. Dressing applied. Patient couns eled on wound care instructions at home. Discharge Plan Departure Patient Disposition: Home Clinical Impression: Bleeding Instructions: DI for Post-Surgical Bleeding Activity Restrictions/Additional Instructions: Keep the bandage in place for the next 24 hours. Apply ice at home to help further reduce swelling. I injected a small amount of medicine called lidocaine with epinephrine to help constrict the blood vessels and applied a bandage called SurgiSeal to the bleeding. Follow up as scheduled with your specialists. Prescriptions: No Action lisinopril 40 mg Tablet 40 mg PO DAILY diltiazem HCl 120 mg Capsule,Extended Release 24 Hr 180 mg PO DAILY latanoprost 0.005 % Drops 1 drp OPHTHALMIC (EYE) DAILY Rx Instructions: R eye only calcium phos,dibas-vitamin D3 77-400 mg-unit Tablet 1 tab PO DAILY pantoprazole 40 mg Tablet,Delayed Release (Dr/Ec) 40 mg PO 0700,2100 Qty: 60 0RF ferrous sulfate 325 mg (65 mg iron) Tablet 325 mg PO BIDWM Qty: 60 0RF amoxicillin 500 mg tablet 500 mg PO Q8H Qty: 14 0RF Xarelto 20 mg tablet 20 mg PO DAILY Referrals: Anish Reyes ARNP [Primary Care Provider] - Stand Alone Forms: Patient Portal/API
[2023-11-26] MEDS: ACETAMINOPHEN 325 MG TABLET 650 MG PO (12:58)
[2023-11-26] MEDS: HYDROCODONE/ACET 5/325 TABLET 1 TAB PO (12:58)
[2023-11-26 14:20] VITALS: BP 187/86; PULSE 91; RESP 16; O2SAT 96
== END 2023-11-26 14:37 | disposition home or self-care (01) ==
PROVIDERS: Emergency Provider Emergency Medicine; Family Provider Nurse Practitioner Family; PCP Nurse Practitioner Family
DX: S01.81XD Laceration without foreign body of other part of head, subsequent encounter (principal); Z79.01 Long term (current) use of anticoagulants
CPT/HCPCS: 99283

== ENCOUNTER → 2024-02-26 10:35 | Outpatient (CLI) | payer OTHER, SELFPAY ==
[2023-01-18 14:11] VITALS: BMI 24.0
[2024-02-26 12:02] LABS: Add Manual Diff / Slide Review NO; Basophils Absolute Auto 100 /uL (0-100); Basophils Percent Auto 1.6 % (0-2); Eosinophils Absolute Auto 100 /uL (0-450); Eosinophils Percent Auto 2.5 % (2-4); Hemoglobin 10.2 g/dL (13.5-17.5); Lymphocytes Absolute Auto 900 /uL (1100-4500); Lymphocytes Percent Auto 23.3 % (25-40); Mean Corpuscular HGB Conc 32.8 % (30-36); Mean Corpuscular Hemoglobin 28.6 PG (26-34); Mean Corpuscular Volume 87.2 fL (80-100); Monocytes Absolute Auto 600 /uL (0-900); Monocytes Percent Auto 14.7 % (3-14); Neutrophils Absolute Auto 2200 /uL (1500-7000); Neutrophils Percent Auto 57.9 % (50-75); Platelet Count 69 X10^3/uL (150-400); Red Blood Cell Count 3.55 X10^6/uL (4.5-5.9); Red Cell Distribution Width 16.3 % (11.6-14.8); White Blood Cell Count 3.9 X10^3/uL (4.5-11.0)
== END ==
PROVIDERS: Family Provider Nurse Practitioner Family; PCP Nurse Practitioner Family; Referring Provider Surgery; Visit Provider Surgery
DX: D64.9 Anemia, unspecified (principal)
CPT/HCPCS: 36415; 85025

== ENCOUNTER 2024-02-27 14:10 | Emergency (ER) | payer OTHER, SELFPAY ==
[2023-01-18 14:11] VITALS: BMI 24.0
[2024-02-27] VITALS (114 sets, daily range): BP systolic 88–165; BP diastolic 51–82; PULSE 66–143; RESP 12–23; TEMP 36.4; O2SAT 91–100; BMI 23.0
--- NOTE | 2024-02-27 14:23 | EKG_ITS ---
[address] [address] Test Date: 2024-02-27 Pat Name: Alessandro Vazquez Department: Room: Gender: Male [employer]: SOLO : 1950 Requested By: Order Number: [id number] Reading MD: Ortega Graham Measurements Intervals [place] Rate: 142 P: MS: 94 QRS: 69 QRSD: 80 T: -37 QT: 304 QTc: 467 Interpretive Statements Critical Test Result: High HR Sinus tachycardia with short MS with occasional premature ventricular complexes Marked ST abnormality, possible inferior subendocardial injury Electronically Signed On 02-27-2024 14:31:28 PDT by Ortega Graham
--- NOTE | 2024-02-27 14:23 | DI.RAD.S_ITS ---
PROCEDURE: XR CHEST 1V INDICATIONS: chest pain TECHNIQUE: One view of the chest was acquired. COMPARISON: [facility], , CHEST 1 VIEW, 12/11/2014, 20:19. FINDINGS: Surgical changes and devices: None. Lungs and pleura: Lungs are clear. No pleural effusions or pneumothorax. Mediastinum: Mediastinal contours appear normal. Heart size is normal. Bones and chest wall: No suspicious bony lesions. Overlying soft tissues appear unremarkable. IMPRESSION: No acute pulmonary process. Dictated by: Lexi Diehl M.D. on 02/27/2024 at 15:08 Approved by: Lexi Diehl M.D. on 02/27/2024 at 15:09
--- NOTE | 2024-02-27 14:24 | ED_ITS ---
HPI - Arrhythmia/Palpitations <Abhilash Cornelius DO - Last Filed: 02/27/24 17:38> General Chief Complaint: Arrhythmia/Palpitations Stated Complaint: Throwing up blood on and off Time Seen by Provider: 02/27/24 14:24 History of Present Illness HPI narrative: Patient is a 73-year-old male with a history of AFib status post Watchman device placed proximally 1 month ago therefore not on anticoagulation, blindness, left arm amputee, presents to the emergency department for palpitations, hematemesis. States that he has had history of dizziness ongoing persistent for the past several days/weeks was at [facility] for a scheduled outpatient CT of the head with IV contrast that was ordered by his primary care doctor to determine why he is always so nauseous/dizzy. States that it is worse whenever he moves, at time of evaluation he has not complaining of any headache or dizziness. States that after he got the scan decided to come here due to the fact that he had an episode of bright red blood in his throat. No trauma no falls Related Data Home Medications Medication Instructions Recorded Confirmed lisinopril 40 mg tablet 40 mg PO DAILY 11/15/19 02/26/24 diltiazem HCl 120 mg capsule,24 180 mg PO DAILY 11/16/19 02/26/24 hr,extended release calcium phosphate,dibasic 77 1 tab PO DAILY 01/18/23 02/26/24 mg-vitamin D3 400 unit tablet latanoprost 0.005 % eye drops 1 drp ophthalmic (eye) DAILY 01/18/23 02/26/24 rivaroxaban 20 mg tablet (Xarelto) 20 mg PO DAILY 11/25/23 02/26/24 aspirin 81 mg tablet,delayed 81 mg PO DAILY 02/26/24 02/26/24 release mirtazapine 7.5 mg tablet 7.5 mg PO DAILY 02/26/24 02/26/24 Previous Rx's Medication Instructions Recorded ferrous sulfate 325 mg (65 mg 325 mg PO BIDWM #60 tabs 01/20/23 iron) tablet pantoprazole 40 mg tablet,delayed 40 mg PO 0700,2100 #60 tabs 01/20/23 release Allergies Allergy/AdvReac Type Severity Reaction Status Date / Time No Known Drug Allergies Allergy Verified 02/26/24 10:10 Review of Systems <DO Maylin Workman Last Filed: 02/27/24 17:38> Review of Systems Narrative: General: Denies fever, chills, weight loss HEENT: Denies headache, eye drainage, eye irritation, head trauma, sore throat, voice change Cardiovascular: Denies any chest pain, palpitations, shortness of breath, tachycardia Respiratory: Denies any shortness of breath, cough, wheeze, stridor GI/: Positive nausea, hematemesis, Denies any abdominal pain, vomiting, diarrhea, bright red blood per rectum, melanotic stools, urinary frequency, urinary retention, dysuria, hematuria MSK: Denies any joint pain, muscle pains, swelling Skin: Denies any rashes, lesions, discoloration Neuro: Denies any headache, lightheadedness, dizziness, fainting, weakness Psych: Denies SI/HI Patient History <Abhilash Cornelius DO - Last Filed: 02/27/24 17:38> Medical History (Updated 02/27/24 @ 15:43 by Abhilash Cornelius DO) 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, right eye, severe stage Hypertension Elevated PSA 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 Family History Mother Lymphoma Social History household members: significant other Smoking Status: Former smoker alcohol intake: current Smoking Status: Former smoker alcohol intake frequency: 3 or more drinks per day Alcohol type: beer, wine and hard liquor Substance Use Type: marijuana Exam <Abhilash Cornelius DO - Last Filed: 02/27/24 17:38> Narrative Exam Narrative: General: Cooperative, comfortable, well-developed, not in acute distress HEENT: Normocephalic, atraumatic, patient is baseline blind Neck: Active full range of motion, atraumatic Chest: Normal to inspection, negative crepitus, no overlying erythema ecchymosis Respiratory: Normal respiratory effort, not in acute respiratory distress, clear to auscultation bilaterally negative cough, wheeze, tachypnea, rhonchi, rales Cardiology: Regular rate rhythm negative gallop, murmur, rubs GI/: Normal to inspection, soft, nonrigid, no tenderness to palpation, exam deferred MSK: patient left upper extremity amputee Skin: No rashes lesions noted Neuro: Alert awake oriented x3, moves all 4 extremities spontaneously, cranial nerves intact, able to answer all questions appropriately follows commands appropriately Psych: Cooperative, negative suicidal or homicidal ideations Initial Vital Signs Initial Vital Signs: Vital Signs Pulse Rate 76 02/27/24 14:17 Pulse Oximetry 95 02/27/24 14:17 <Vivek Cano, DO - Last Filed: 02/28/24 05:43> Initial Vital Signs Initial Vital Signs: Vital Signs Pulse Rate 76 02/27/24 14:17 Pulse Oximetry 95 02/27/24 14:17 Course <Abhilash Cornelius, DO - Last Filed: 02/27/24 17:38> Orders Ordered: ED Orders 02/28/24 01:40 EKG-12 Lead Stat Diltiazem HCl 125 mg/ Sodium (Chloride) 125 mls @ 5 mls/hr IV TITRATE FEDERICO; Protocol Last Titration: 02/28/24 05:34 Dose: Infused Documented By: Titration: 02/28/24 02:36 Dose: 0 mg/hr, 0 mls/hr Documented By: Titration: 02/28/24 01:39 Dose: 5 mg/hr, 5 mls/hr Documented By: Titration: 02/28/24 01:05 Dose: 7 mg/hr, 7 mls/hr Documented By: Titration: 02/27/24 23:17 Dose: 8.5 mg/hr, 8.5 mls/hr Documented By: Titration: 02/27/24 23:10 Dose: 6.5 mg/hr, 6.5 mls/hr Documented By: Titration: 02/27/24 21:19 Dose: 6 mg/hr, 6 mls/hr Documented By: Titration: 02/27/24 21:11 Dose: 5 mg/hr, 5 mls/hr Documented By: Titration: 02/27/24 20:57 Dose: 7 mg/hr, 7 mls/hr Documented By: Titration: 02/27/24 20:39 Dose: 7.5 mg/hr, 7.5 mls/hr Documented By: Titration: 02/27/24 19:34 Dose: 5 mg/hr, 5 mls/hr Documented By: Titration: 02/27/24 17:34 Dose: 10 mg/hr, 10 mls/hr Documented By: Titration: 02/27/24 16:53 Dose: 15 mg/hr, 15 mls/hr Documented By: Titration: 02/27/24 16:33 Dose: 10 mg/hr, 10 mls/hr Documented By: Admin: 02/27/24 16:21 Dose: 5 mg/hr, 5 mls/hr Documented By: THOMAS Discontinued Medications Aspirin (Aspirin 81 Mg Chew Tab) 324 mg PO NOW ONE Stop: 02/27/24 14:24 Last Admin: 02/27/24 14:36 Dose: Not Given Documented By: BHARGAVI Diltiazem HCl (Diltiazem 25 Mg/5 Ml Sdv) 20 mg IV NOW ONE Stop: 02/27/24 15:17 Last Admin: 02/27/24 15:21 Dose: 20 mg Documented By: THOMAS Diltiazem HCl (Diltiazem 25 Mg/5 Ml Sdv) 25 mg IV NOW ONE Stop: 02/27/24 15:30 Last Admin: 02/27/24 15:37 Dose: 25 mg Documented By: THOMAS Diltiazem HCl (Diltiazem 30 Mg Tablet) 180 mg PO NOW ONE Stop: 02/28/24 01:46 Last Admin: 02/28/24 01:50 Dose: Not Given Documented By: MARIO Diltiazem HCl (Diltiazem Sr 60 Mg) 180 mg PO NOW ONE Stop: 02/28/24 01:50 Last Admin: 02/28/24 02:03 Dose: 180 mg Documented By: MARIO Sodium Chloride (Normal Saline 0.9%) 1,000 mls @ 1,000 mls/hr IV BOLUS ONE Stop: 02/27/24 15:30 Last Infusion: 02/27/24 15:47 Dose: Infused Documented By: Admin: 02/27/24 14:37 Dose: 1,000 mls/hr Documented By: THOMAS Magnesium Sulfate (Magnesium Sulfate) 2 gm in 50 mls @ 150 mls/hr IV NOW ONE Stop: 02/27/24 14:50 Last Infusion: 02/27/24 15:12 Dose: Infused Documented By: THOMAS Co-signed By: [facility] Admin: 02/27/24 14:37 Dose: 150 mls/hr Documented By: THOMAS Co-signed By: BARRY POTASSIUM CHLORIDE IN WATER (Potassium Cl 10 Meq/100 Ml Yamel) 10 meq in 100 mls @ 100 mls/hr IV Q1H FEDERICO Stop: 02/27/24 22:59 Last Infusion: 02/27/24 23:18 Dose: Infused Documented By: Admin: 02/27/24 22:17 Dose: 100 mls/hr Documented By: Infusion: 02/27/24 22:12 Dose: Infused Documented By: Admin: 02/27/24 21:12 Dose: 100 mls/hr Documented By: BHARGAVI Metoprolol Tartrate (Metoprolol Tartrate 5 Mg/5 Ml Inj) 5 mg IV NOW ONE Stop: 02/27/24 17:05 Last Admin: 02/27/24 17:15 Dose: 5 mg Documented By: THOMAS Ondansetron HCl (Ondansetron 4 Mg/2 Ml Inj) 4 mg IV NOW ONE Stop: 02/27/24 15:52 Last Admin: 02/27/24 15:55 Dose: 4 mg Documented By: BHARGAVI Pantoprazole Sodium (Pantoprazole 40 Mg Vial) 80 mg IV NOW ONE Stop: 02/27/24 14:36 Last Admin: 02/27/24 14:39 Dose: Not Given Documented By: THOMAS Pantoprazole Sodium (Pantoprazole 40 Mg Vial) 40 mg IV NOW ONE Stop: 02/27/24 14:39 Last Admin: 02/27/24 14:40 Dose: 40 mg Documented By: THOMAS Vital Signs Vital signs: Vital Signs - 8 hr 02/27/24 21:40 02/27/24 21:40 02/27/24 21:45 Pulse Rate 69 Respiratory Rate Blood Pressure 103/59 L 116/58 L Pulse Oximetry 98 Oxygen Delivery Method 02/27/24 21:45 02/27/24 21:50 02/27/24 21:50 Pulse Rate 132 H 134 H Respiratory Rate Blood Pressure 99/61 Pulse Oximetry 97 96 Oxygen Delivery Method 02/27/24 21:55 02/27/24 21:55 02/27/24 22:00 Pulse Rate 100 H Respiratory Rate Blood Pressure 104/53 L 102/53 L Pulse Oximetry 98 Oxygen Delivery Method 02/27/24 22:00 02/27/24 22:05 02/27/24 22:05 Pulse Rate 69 132 H Respiratory Rate Blood Pressure 105/54 L Pulse Oximetry 97 97 Oxygen Delivery Method 02/27/24 22:10 02/27/24 22:10 02/27/24 22:15 Pulse Rate 69 134 H Respiratory Rate Blood Pressure 101/56 L Pulse Oximetry 98 98 Oxygen Delivery Method 02/27/24 22:15 02/27/24 22:20 02/27/24 22:20 Pulse Rate 79 Respiratory Rate 18 Blood Pressure 107/58 L 93/51 L Pulse Oximetry 98 Oxygen Delivery Method 02/27/24 22:25 02/27/24 22:25 02/27/24 22:30 Pulse Rate 70 Respiratory Rate 14 Blood Pressure 108/51 L 105/55 L Pulse Oximetry 98 Oxygen Delivery Method 02/27/24 22:30 02/27/24 22:35 02/27/24 22:35 Pulse Rate 92 H 69 Respiratory Rate 22 Blood Pressure 104/55 L Pulse Oximetry 98 97 Oxygen Delivery Method 02/27/24 22:40 02/27/24 22:40 02/27/24 22:45 Pulse Rate 68 68 Respiratory Rate 17 Blood Pressure 100/56 L Pulse Oximetry 97 97 Oxygen Delivery Method Room Air 02/27/24 22:45 02/27/24 22:50 02/27/24 22:50 Pulse Rate 68 Respiratory Rate Blood Pressure 100/53 L 97/53 L Pulse Oximetry 98 Oxygen Delivery Method 02/27/24 22:55 02/27/24 22:55 02/27/24 23:00 Pulse Rate 68 Respiratory Rate Blood Pressure 97/54 L 112/75 Pulse Oximetry 98 Oxygen Delivery Method 02/27/24 23:00 02/27/24 23:15 02/27/24 23:15 Pulse Rate 128 H 139 H Respiratory Rate Blood Pressure 117/60 Pulse Oximetry 97 100 Oxygen Delivery Method 02/27/24 23:30 02/27/24 23:30 02/27/24 23:33 Pulse Rate 133 H Respiratory Rate Blood Pressure 113/58 L 108/52 L Pulse Oximetry 99 Oxygen Delivery Method 02/27/24 23:33 02/27/24 23:45 02/27/24 23:45 Pulse Rate 71 69 Respiratory Rate 12 Blood Pressure 97/52 L Pulse Oximetry 99 98 Oxygen Delivery Method Room Air 02/28/24 00:00 02/28/24 00:00 02/28/24 00:30 Pulse Rate 70 74 Respiratory Rate 14 13 Blood Pressure 96/55 L Pulse Oximetry 98 98 Oxygen Delivery Method 02/28/24 00:30 02/28/24 01:00 02/28/24 01:00 Pulse Rate 70 Respiratory Rate 13 Blood Pressure 92/50 L 90/55 L Pulse Oximetry 96 Oxygen Delivery Method Room Air 02/28/24 01:30 02/28/24 01:31 02/28/24 01:33 Pulse Rate 69 73 75 Respiratory Rate 14 13 13 Blood Pressure Pulse Oximetry 96 96 97 Oxygen Delivery Method Room Air Room Air 02/28/24 01:40 02/28/24 01:40 02/28/24 01:50 Pulse Rate 62 Respiratory Rate 12 Blood Pressure 93/50 L 103/54 L Pulse Oximetry 96 Oxygen Delivery Method Room Air 02/28/24 01:50 02/28/24 02:00 02/28/24 02:00 Pulse Rate 66 64 Respiratory Rate 14 15 Blood Pressure 103/55 L Pulse Oximetry 96 96 Oxygen Delivery Method Room Air Room Air 02/28/24 02:10 02/28/24 02:10 02/28/24 02:20 Pulse Rate 65 Respiratory Rate 14 Blood Pressure 106/59 L 103/59 L Pulse Oximetry 96 Oxygen Delivery Method 02/28/24 02:20 02/28/24 02:30 02/28/24 02:30 Pulse Rate 65 65 Respiratory Rate 12 12 Blood Pressure 103/57 L Pulse Oximetry 96 96 Oxygen Delivery Method 02/28/24 02:40 02/28/24 02:40 02/28/24 02:50 Pulse Rate 66 Respiratory Rate 13 Blood Pressure 103/59 L 106/55 L Pulse Oximetry 96 Oxygen Delivery Method Room Air 02/28/24 02:50 02/28/24 03:00 02/28/24 03:00 Pulse Rate 66 67 Respiratory Rate 12 12 Blood Pressure 105/59 L Pulse Oximetry 96 96 Oxygen Delivery Method Room Air Room Air 02/28/24 03:10 02/28/24 03:10 02/28/24 03:20 Pulse Rate 65 Respiratory Rate 13 Blood Pressure 110/55 L 103/59 L Pulse Oximetry 96 Oxygen Delivery Method Room Air 02/28/24 03:20 02/28/24 03:30 02/28/24 03:30 Pulse Rate 67 66 Respiratory Rate 14 12 Blood Pressure 105/54 L Pulse Oximetry 96 96 Oxygen Delivery Method Room Air Room Air 02/28/24 03:40 02/28/24 03:40 02/28/24 04:00 Pulse Rate 66 Respiratory Rate 12 Blood Pressure 107/56 L 106/52 L Pulse Oximetry 96 Oxygen Delivery Method Room Air 02/28/24 04:00 02/28/24 04:30 02/28/24 04:30 Pulse Rate 65 64 Respiratory Rate 13 12 Blood Pressure 96/53 L Pulse Oximetry 96 94 Oxygen Delivery Method Room Air Room Air 02/28/24 05:00 02/28/24 05:00 Pulse Rate 65 Respiratory Rate 14 Blood Pressure 108/56 L Pulse Oximetry 95 Oxygen Delivery Method Room Air <Vivek Cano DO - Last Filed: 02/28/24 05:43> Orders Ordered: ED Orders 02/28/24 01:40 EKG-12 Lead Stat Diltiazem HCl 125 mg/ Sodium (Chloride) 125 mls @ 5 mls/hr IV TITRATE FEDERICO; Protocol Last Titration: 02/28/24 05:34 Dose: Infused Documented By: Titration: 02/28/24 02:36 Dose: 0 mg/hr, 0 mls/hr Documented By: Titration: 02/28/24 01:39 Dose: 5 mg/hr, 5 mls/hr Documented By: Titration: 02/28/24 01:05 Dose: 7 mg/hr, 7 mls/hr Documented By: Titration: 02/27/24 23:17 Dose: 8.5 mg/hr, 8.5 mls/hr Documented By: Titration: 02/27/24 23:10 Dose: 6.5 mg/hr, 6.5 mls/hr Documented By: Titration: 02/27/24 21:19 Dose: 6 mg/hr, 6 mls/hr Documented By: Titration: 02/27/24 21:11 Dose: 5 mg/hr, 5 mls/hr Documented By: Titration: 02/27/24 20:57 Dose: 7 mg/hr, 7 mls/hr Documented By: Titration: 02/27/24 20:39 Dose: 7.5 mg/hr, 7.5 mls/hr Documented By: Titration: 02/27/24 19:34 Dose: 5 mg/hr, 5 mls/hr Documented By: Titration: 02/27/24 17:34 Dose: 10 mg/hr, 10 mls/hr Documented By: Titration: 02/27/24 16:53 Dose: 15 mg/hr, 15 mls/hr Documented By: Titration: 02/27/24 16:33 Dose: 10 mg/hr, 10 mls/hr Documented By: Admin: 02/27/24 16:21 Dose: 5 mg/hr, 5 mls/hr Documented By: THOMAS Discontinued Medications Aspirin (Aspirin 81 Mg Chew Tab) 324 mg PO NOW ONE Stop: 02/27/24 14:24 Last Admin: 02/27/24 14:36 Dose: Not Given Documented By: BHARGAVI Diltiazem HCl (Diltiazem 25 Mg/5 Ml Sdv) 20 mg IV NOW ONE Stop: 02/27/24 15:17 Last Admin: 02/27/24 15:21 Dose: 20 mg Documented By: THOMAS Diltiazem HCl (Diltiazem 25 Mg/5 Ml Sdv) 25 mg IV NOW ONE Stop: 02/27/24 15:30 Last Admin: 02/27/24 15:37 Dose: 25 mg Documented By: THOMAS Diltiazem HCl (Diltiazem 30 Mg Tablet) 180 mg PO NOW ONE Stop: 02/28/24 01:46 Last Admin: 02/28/24 01:50 Dose: Not Given Documented By: MARIO Diltiazem HCl (Diltiazem Sr 60 Mg) 180 mg PO NOW ONE Stop: 02/28/24 01:50 Last Admin: 02/28/24 02:03 Dose: 180 mg Documented By: MARIO Sodium Chloride (Normal Saline 0.9%) 1,000 mls @ 1,000 mls/hr IV BOLUS ONE Stop: 02/27/24 15:30 Last Infusion: 02/27/24 15:47 Dose: Infused Documented By: Admin: 02/27/24 14:37 Dose: 1,000 mls/hr Documented By: THOMAS Magnesium Sulfate (Magnesium Sulfate) 2 gm in 50 mls @ 150 mls/hr IV NOW ONE Stop: 02/27/24 14:50 Last Infusion: 02/27/24 15:12 Dose: Infused Documented By: THOMAS Co-signed By: [facility] Admin: 02/27/24 14:37 Dose: 150 mls/hr Documented By: THOMAS Co-signed By: BARRY POTASSIUM CHLORIDE IN WATER (Potassium Cl 10 Meq/100 Ml Yamel) 10 meq in 100 mls @ 100 mls/hr IV Q1H [place] Stop: 02/27/24 22:59 Last Infusion: 02/27/24 23:18 Dose: Infused Documented By: Admin: 02/27/24 22:17 Dose: 100 mls/hr Documented By: Infusion: 02/27/24 22:12 Dose: Infused Documented By: Admin: 02/27/24 21:12 Dose: 100 mls/hr Documented By: BHARGAVI Metoprolol Tartrate (Metoprolol Tartrate 5 Mg/5 Ml Inj) 5 mg IV NOW ONE Stop: 02/27/24 17:05 Last Admin: 02/27/24 17:15 Dose: 5 mg Documented By: THOMAS Ondansetron HCl (Ondansetron 4 Mg/2 Ml Inj) 4 mg IV NOW ONE Stop: 02/27/24 15:52 Last Admin: 02/27/24 15:55 Dose: 4 mg Documented By: BHARGAVI Pantoprazole Sodium (Pantoprazole 40 Mg Vial) 80 mg IV NOW ONE Stop: 02/27/24 14:36 Last Admin: 02/27/24 14:39 Dose: Not Given Documented By: THOMAS Pantoprazole Sodium (Pantoprazole 40 Mg Vial) 40 mg IV NOW ONE Stop: 02/27/24 14:39 Last Admin: 02/27/24 14:40 Dose: 40 mg Documented By: THOMAS Vital Signs Vital signs: Vital Signs - 8 hr 02/27/24 21:40 02/27/24 21:40 02/27/24 21:45 Pulse Rate 69 Respiratory Rate Blood Pressure 103/59 L 116/58 L Pulse Oximetry 98 Oxygen Delivery Method 02/27/24 21:45 02/27/24 21:50 02/27/24 21:50 Pulse Rate 132 H 134 H Respiratory Rate Blood Pressure 99/61 Pulse Oximetry 97 96 Oxygen Delivery Method 02/27/24 21:55 02/27/24 21:55 02/27/24 22:00 Pulse Rate 100 H Respiratory Rate Blood Pressure 104/53 L 102/53 L Pulse Oximetry 98 Oxygen Delivery Method 02/27/24 22:00 02/27/24 22:05 02/27/24 22:05 Pulse Rate 69 132 H Respiratory Rate Blood Pressure 105/54 L Pulse Oximetry 97 97 Oxygen Delivery Method 02/27/24 22:10 02/27/24 22:10 02/27/24 22:15 Pulse Rate 69 134 H Respiratory Rate Blood Pressure 101/56 L Pulse Oximetry 98 98 Oxygen Delivery Method 02/27/24 22:15 02/27/24 22:20 02/27/24 22:20 Pulse Rate 79 Respiratory Rate 18 Blood Pressure 107/58 L 93/51 L Pulse Oximetry 98 Oxygen Delivery Method 02/27/24 22:25 02/27/24 22:25 02/27/24 22:30 Pulse Rate 70 Respiratory Rate 14 Blood Pressure 108/51 L 105/55 L Pulse Oximetry 98 Oxygen Delivery Method 02/27/24 22:30 02/27/24 22:35 02/27/24 22:35 Pulse Rate 92 H 69 Respiratory Rate 22 Blood Pressure 104/55 L Pulse Oximetry 98 97 Oxygen Delivery Method 02/27/24 22:40 02/27/24 22:40 02/27/24 22:45 Pulse Rate 68 68 Respiratory Rate 17 Blood Pressure 100/56 L Pulse Oximetry 97 97 Oxygen Delivery Method Room Air 02/27/24 22:45 02/27/24 22:50 02/27/24 22:50 Pulse Rate 68 Respiratory Rate Blood Pressure 100/53 L 97/53 L Pulse Oximetry 98 Oxygen Delivery Method 02/27/24 22:55 02/27/24 22:55 02/27/24 23:00 Pulse Rate 68 Respiratory Rate Blood Pressure 97/54 L 112/75 Pulse Oximetry 98 Oxygen Delivery Method 02/27/24 23:00 02/27/24 23:15 02/27/24 23:15 Pulse Rate 128 H 139 H Respiratory Rate Blood Pressure 117/60 Pulse Oximetry 97 100 Oxygen Delivery Method 02/27/24 23:30 02/27/24 23:30 02/27/24 23:33 Pulse Rate 133 H Respiratory Rate Blood Pressure 113/58 L 108/52 L Pulse Oximetry 99 Oxygen Delivery Method 02/27/24 23:33 02/27/24 23:45 02/27/24 23:45 Pulse Rate 71 69 Respiratory Rate 12 Blood Pressure 97/52 L Pulse Oximetry 99 98 Oxygen Delivery Method Room Air 02/28/24 00:00 02/28/24 00:00 02/28/24 00:30 Pulse Rate 70 74 Respiratory Rate 14 13 Blood Pressure 96/55 L Pulse Oximetry 98 98 Oxygen Delivery Method 02/28/24 00:30 02/28/24 01:00 02/28/24 01:00 Pulse Rate 70 Respiratory Rate 13 Blood Pressure 92/50 L 90/55 L Pulse Oximetry 96 Oxygen Delivery Method Room Air 02/28/24 01:30 02/28/24 01:31 02/28/24 01:33 Pulse Rate 69 73 75 Respiratory Rate 14 13 13 Blood Pressure Pulse Oximetry 96 96 97 Oxygen Delivery Method Room Air Room Air 02/28/24 01:40 02/28/24 01:40 02/28/24 01:50 Pulse Rate 62 Respiratory Rate 12 Blood Pressure 93/50 L 103/54 L Pulse Oximetry 96 Oxygen Delivery Method Room Air 02/28/24 01:50 02/28/24 02:00 02/28/24 02:00 Pulse Rate 66 64 Respiratory Rate 14 15 Blood Pressure 103/55 L Pulse Oximetry 96 96 Oxygen Delivery Method Room Air Room Air 02/28/24 02:10 02/28/24 02:10 02/28/24 02:20 Pulse Rate 65 Respiratory Rate 14 Blood Pressure 106/59 L 103/59 L Pulse Oximetry 96 Oxygen Delivery Method 02/28/24 02:20 02/28/24 02:30 02/28/24 02:30 Pulse Rate 65 65 Respiratory Rate 12 12 Blood Pressure 103/57 L Pulse Oximetry 96 96 Oxygen Delivery Method 02/28/24 02:40 02/28/24 02:40 02/28/24 02:50 Pulse Rate 66 Respiratory Rate 13 Blood Pressure 103/59 L 106/55 L Pulse Oximetry 96 Oxygen Delivery Method Room Air 02/28/24 02:50 02/28/24 03:00 02/28/24 03:00 Pulse Rate 66 67 Respiratory Rate 12 12 Blood Pressure 105/59 L Pulse Oximetry 96 96 Oxygen Delivery Method Room Air Room Air 02/28/24 03:10 02/28/24 03:10 02/28/24 03:20 Pulse Rate 65 Respiratory Rate 13 Blood Pressure 110/55 L 103/59 L Pulse Oximetry 96 Oxygen Delivery Method Room Air 02/28/24 03:20 02/28/24 03:30 02/28/24 03:30 Pulse Rate 67 66 Respiratory Rate 14 12 Blood Pressure 105/54 L Pulse Oximetry 96 96 Oxygen Delivery Method Room Air Room Air 02/28/24 03:40 02/28/24 03:40 02/28/24 04:00 Pulse Rate 66 Respiratory Rate 12 Blood Pressure 107/56 L 106/52 L Pulse Oximetry 96 Oxygen Delivery Method Room Air 02/28/24 04:00 02/28/24 04:30 02/28/24 04:30 Pulse Rate 65 64 Respiratory Rate 13 12 Blood Pressure 96/53 L Pulse Oximetry 96 94 Oxygen Delivery Method Room Air Room Air 02/28/24 05:00 02/28/24 05:00 Pulse Rate 65 Respiratory Rate 14 Blood Pressure 108/56 L Pulse Oximetry 95 Oxygen Delivery Method Room Air MDM - Arrhythmia/Palpitations <Abhilash Cornelius DO - Last Filed: 02/27/24 17:38> Differential Diagnosis Differential diagnosis: Likely artial fibrillation, supraventricular tachycardia and other (CHF, electrolyte abnormality, upper GI bleed) Lab Data 02/27/24 14:27 02/27/24 14:27 Labs: Lab Results 02/27/24 02/27/24 02/27/24 Range/Units 14:27 15:00 17:30 WBC 4.7 (4.5-11.0) X10^3/uL RBC 3.64 L (4.5-5.9) X10^6/uL Hgb 10.4 L (13.5-17.5) g/dL Hct 32.0 L (41-53) % MCV 87.8 (80-100) fL MCH 28.6 (26-34) PG MCHC 32.6 (30-36) % RDW 16.3 H (11.6-14.8) % Plt Count 68 L (150-400) X10^3/uL Neut % (Auto) 74.8 (50-75) % Lymph % (Auto) 12.5 L (25-40) % Holmes % (Auto) 11.4 (3-14) % Eos % (Auto) 0.7 L (2-4) % Baso % (Auto) 0.6 (0-2) % Neut # (Auto) 3500 (4746-4058) /uL Lymph # (Auto) 600 L (2120-0313) /uL Holmes # (Auto) 500 (0-900) /uL Eos # (Auto) 0 (0-450) /uL Baso # (Auto) 0 (0-100) /uL PT 15.4 H (9.4-12.5) SECONDS INR 1.3 (0.9-1.3) APTT 35 (25.1-36.5) SECONDS Sodium 129 L (137-145) mmol/L Potassium 3.8 (3.4-5.1) mmol/L Chloride 100 (98-107) mmol/L Carbon Dioxide 20 L (22-32) mmol/L BUN 12 (9-20) mg/dL Creatinine 0.77 (0.66-1.25) mg/dL Estimated GFR > 60 (>60) mL/min BUN/Creatinine Ratio 15.6 (6-22) Glucose 135 H (80-110) mg/dL Calcium 9.0 (8.4-10.2) mg/dL Magnesium 1.3 L (1.6-2.3) mg/dL Total Bilirubin 2.0 H (0.2-1.3) mg/dL AST 89 H (17-59) IU/L ALT 34 (<50) IU/L Alkaline Phosphatase 132 H (38-126) U/L Total Creatine Kinase 41 L (55-170) U/L Troponin I 0.012 0.034 (0.01-0.034) ng/mL NT-Pro-B Natriuret Pep 379 H (<125) pg/mL Total Protein 7.0 (6.3-8.2) g/dL Albumin 3.8 (3.5-5.0) g/dL Globulin 3.2 (1.7-4.1) g/dL Albumin/Globulin Ratio 1.2 (1.0-2.8) Lipase 294 (23-300) U/L Blood Type A Positive Antibody Screen Negative Imaging Data Chest x-ray: Radiologist's Impresson: [address] [address] XRay Report Signed Patient: Alessandro Vazquez MR#: [id number] : 1950 Acct:[id number] Age/Sex: 73 / M Date of Service: 02/27/24 Loc: ED Accession Number: [id number] Procedure: XR chest 1V Ordering Provider: Abhilash Cornelius D.O. PROCEDURE: XR CHEST 1V INDICATIONS: chest pain TECHNIQUE: One view of the chest was acquired. COMPARISON: [facility], CR, CHEST 1 VIEW, 12/11/2014, 20:19. FINDINGS: Surgical changes and devices: None. Lungs and pleura: Lungs are clear. No pleural effusions or pneumothorax. Mediastinum: Mediastinal contours appear normal. Heart size is normal. Bones and chest wall: No suspicious bony lesions. Overlying soft tissues appear unremarkable. IMPRESSION: No acute pulmonary process. CT scan - abdomen/pelvis: Radiologist's Impresson: [place] [address] CT Scan Report Signed Patient: Alessandro Vazquez MR#: [id number] : 1950 Acct:[id number] Age/Sex: 73 / M Date of Service: 02/27/24 Loc: ED Accession Number: [id number] Procedure: CT abdomen pelvis w con Ordering Provider: Abhilash Cornelius D.O. PROCEDURE: CT ABDOMEN PELVIS W CON INDICATIONS: epigastric pain, nausea, vomting, hematemesis TECHNIQUE: After the administration of intravenous contrast, axial sections acquired from the lung bases to the pubic symphysis. Coronal and sagittal reformats were performed. For radiation dose reduction, the following was used: automated exposure control, adjustment of mA and/or kV according to patient size. COMPARISON: [facility], CT, CT CHEST ABD PEL W CON, 01/18/2023, 11:44. FINDINGS: Image quality: Diagnostic. Lower Chest: No significant findings. ABDOMEN: Liver: Liver overall appears coarsened with steatosis. Small scattered areas of calcification and low-attenuation foci are present. The smaller may represent simple cysts or hemangiomas and are relatively unchanged. Gallbladder: Multiple luminal stones without wall thickening. Biliary ducts: No biliary dilation. Pancreas: No ductal dilation. Spleen: Size is within normal limits. Splenic calcifications are present. Adrenal Glands: No adrenal nodules. Kidneys and Ureters: No hydronephrosis. No solid mass. No complex renal cystic lesion which requires follow up. Nonobstructing stable renal calculi. Stomach and Bowel: Normal colonic caliber, without significant wall thickening. Hiatal hernia. Scattered diverticula without inflammatory change. Unchanged 1.3 cm low-attenuation focus with fat density in the proximal small bowel series 2, image 65. It is unchanged. No obstruction. Peritoneum: No abnormal intraperitoneal fluid. No free air. Ventral Wall: No significant ventral hernia. Abdominal Nodes: No retroperitoneal or mesenteric adenopathy by size criteria. Vessels: Aorta and inferior vena cava are normal in size. PELVIS: Pelvic Organs: Unremarkable. Bladder: Better is incompletely distended with thickened wall and trabeculations. Pelvic Nodes: No enlarged lymph nodes. Miscellaneous: Fat containing inguinal hernias are seen. Bones: No aggressive osseous abnormality. IMPRESSION: Hiatal hernia. Presumed small bowel fat containing lipoma. Hepatic and splenic calcifications likely related to granulomatous exposure. Cholelithiasis without imaging appearance of cholecystitis. ECG Data Attestation: I personally reviewed and interpreted this ECG as follows: Interpretation: EKG interpreted ED physician sinus tachycardia at 142 beats per minute QTC 467, normal axis, nonspecific ST changes no STEMI 1517: Repeat EKG was performed, now showing a flutter two-to-one at 1:39 a.m., QTC 517, normal axis nonspecific ST changes no STEMI, MDM Narrative Medical decision making narrative: Patient is a 73-year-old male history of AFib not on anticoagulation given recent placement of Watchman device approximately 1 month ago presents for episode of hematemesis. States that he has been having episodes of dizziness was at [facility] for a outpatient head scan but had persistent symptoms such decided come into the ED. he has not complaining of any chest pain shortness of breath. Received CT angio head and neck from [facility], patient without any significant intracranial arterial abnormalities, no abnormalities within the arteries of the neck. Incidental moderate cervical spine degeneration otherwise normal 1517: Patient not complaining of any new symptoms repeat atrial flutter two-to-one at 139 beats per minute., patient already received 2 g magnesium, we will give 20 mg of IV Cardizem. 1547: Patient maintained atrial flutter in the 130s, additional 25 mg of IV Cardizem was given, did have transient response to the 90s, patient hemodynamically stable at this time we will send to CT scan, if patient is still maintaining atrial flutter in the 130s will start IV Cardizem 1645: CT scan without any abnormalities, however patient is still sustaining in the 140s Cardizem drip 1709: Patient re-evaluated still without any chest pain shortness of breath patient is normotensive, discussed case with Dr. Gaxiola (cardiology) who is recommending transfer given patient with recent Watchman placement, is not recommending cardioversion at this time, is stating will need ruth before attempting to do this. He is recommending additional 5mg Lopressor, states patient should remain on Cardizem drip if heart rate improved, however he states that if heart rate still not under control to initiate esmolol drip. 1737: Patient re-evaluated, no new this time, did receive 5 mg IV Lopressor, patient with heart rate controlled in the 60s. Did discuss with [facility], still awaiting call back to discuss case with hospitalist and heel former for transfer. <Vivek Cano, - Last Filed: 02/28/24 05:43> Medical Records Attestation: I reviewed the patient's medical records. Lab Data Attestation: I reviewed the patient's lab results. Labs: Lab Results 02/27/24 02/27/24 02/27/24 Range/Units 14:27 15:00 17:30 WBC 4.7 (4.5-11.0) X10^3/uL RBC 3.64 L (4.5-5.9) X10^6/uL Hgb 10.4 L (13.5-17.5) g/dL Hct 32.0 L (41-53) % MCV 87.8 (80-100) fL MCH 28.6 (26-34) PG MCHC 32.6 (30-36) % RDW 16.3 H (11.6-14.8) % Plt Count 68 L (150-400) X10^3/uL Neut % (Auto) 74.8 (50-75) % Lymph % (Auto) 12.5 L (25-40) % Holmes % (Auto) 11.4 (3-14) % Eos % (Auto) 0.7 L (2-4) % Baso % (Auto) 0.6 (0-2) % Neut # (Auto) 3500 (5463-0905) /uL Lymph # (Auto) 600 L (7681-0696) /uL Holmes # (Auto) 500 (0-900) /uL Eos # (Auto) 0 (0-450) /uL Baso # (Auto) 0 (0-100) /uL PT 15.4 H (9.4-12.5) SECONDS INR 1.3 (0.9-1.3) APTT 35 (25.1-36.5) SECONDS Sodium 129 L (137-145) mmol/L Potassium 3.8 (3.4-5.1) mmol/L Chloride 100 (98-107) mmol/L Carbon Dioxide 20 L (22-32) mmol/L BUN 12 (9-20) mg/dL Creatinine 0.77 (0.66-1.25) mg/dL Estimated GFR > 60 (>60) mL/min BUN/Creatinine Ratio 15.6 (6-22) Glucose 135 H (80-110) mg/dL Calcium 9.0 (8.4-10.2) mg/dL Magnesium 1.3 L (1.6-2.3) mg/dL Total Bilirubin 2.0 H (0.2-1.3) mg/dL AST 89 H (17-59) IU/L ALT 34 (<50) IU/L Alkaline Phosphatase 132 H (38-126) U/L Total Creatine Kinase 41 L (55-170) U/L Troponin I 0.012 0.034 (0.01-0.034) ng/mL NT-Pro-B Natriuret Pep 379 H (<125) pg/mL Total Protein 7.0 (6.3-8.2) g/dL Albumin 3.8 (3.5-5.0) g/dL Globulin 3.2 (1.7-4.1) g/dL Albumin/Globulin Ratio 1.2 (1.0-2.8) Lipase 294 (23-300) U/L Blood Type A Positive Antibody Screen Negative ECG Data Interpretation: EKG interpreted ED physician sinus tachycardia at 142 beats per minute QTC 467, normal axis, nonspecific ST changes no STEMI 1517: Repeat EKG was performed, now showing a flutter two-to-one at 1:39 a.m., QTC 517, normal axis nonspecific ST changes no STEMI, Repeat EKG timed 1918 hours Atrial flutter Ventricular rate [address] T wave changes Repeat EKG timed 0143 hours Sinus rhythm Ventricular rate is 69 Normal QRS QTC [address] T wave changes MDM Narrative Medical decision making narrative: Patient is a 73-year-old male history of AFib not on anticoagulation given recent placement of Watchman device approximately 1 month ago presents for episode of hematemesis. States that he has been having episodes of dizziness was at [facility] for a outpatient head scan but had persistent symptoms such decided come into the ED. he has not complaining of any chest pain shortness of breath. Received CT angio head and neck from [facility], patient without any significant intracranial arterial abnormalities, no abnormalities within the arteries of the neck. Incidental moderate cervical spine degeneration otherwise normal 1517: Patient not complaining of any new symptoms repeat atrial flutter two-to-one at 139 beats per minute., patient already received 2 g magnesium, we will give 20 mg of IV Cardizem. 1547: Patient maintained atrial flutter in the 130s, additional 25 mg of IV Cardizem was given, did have transient response to the 90s, patient hemodynamically stable at this time we will send to CT scan, if patient is still maintaining atrial flutter in the 130s will start IV Cardizem 1645: CT scan without any abnormalities, however patient is still sustaining in the 140s Cardizem drip 1709: Patient re-evaluated still without any chest pain shortness of breath patient is normotensive, discussed case with Dr. Gaxiola (cardiology) who is recommending transfer given patient with recent Watchman placement, is not recommending cardioversion at this time, is stating will need ruth before attempting to do this. He is recommending additional 5mg Lopressor, states patient should remain on Cardizem drip if heart rate improved, however he states that if heart rate still not under control to initiate esmolol drip. 1737: Patient re-evaluated, no new this time, did receive 5 mg IV Lopressor, patient with heart rate controlled in the 60s. Did discuss with [facility] transfer center, still awaiting call back to discuss case with hospitalist and heel former for transfer. Dr Cano: Received turned over. Review patient's history and physical exam. He was currently on a diltiazem drip. Heart rate now is more consistently less than 100 but does occasionally have heart rates in the 120s to 130s. I discussed the case with Dr. Parkinson hospitalist at [facility] who accepts the patient for transfer. Unfortunately there was no bed availability overnight so patient will remain in the emergency department in transfer will be set up for morning. During his stay in the emergency department the patient converted to sinus rhythm. He was given an oral dose of diltiazem. After 30 minutes his diltiazem drip was stopped. He was observed for another several hours remaining in sinus rhythm without ectopy. Patient was able to stand and ambulate around the emergency department. He did not become tachycardic. He states he felt fairly well. Since he was now in sinus rhythm there was no indication for transfer for RUTH and cardioversion. We will discharge the patient with instructions to contact his primary doctor for a follow-up. Hold on making any changes to his medications for now. He was given return precautions. He expressed understanding and agreement Critical Care Time <Vivek Cano, DO - Last Filed: 02/28/24 05:43> Critical Care Time Critical Care Time: Yes Total Critical Care Time: 90 Attestation: The high probability of a clinically significant, sudden or life threatening deterioration of the [cardiovascular] system(s) required my full and direct attention, intervention and personal management. The aggregate critical care time was [90] minutes. This time is in addition to time spent performing reported procedures but includes the following: [x] Data Review and interpretation [x] Patient assessment and monitoring of vital signs [x] Documentation [x] Medication orders and management Discharge Plan Departure Patient Disposition: Home Clinical Impression: Atrial flutter Instructions: DI for Atrial Flutter Activity Restrictions/Additional Instructions: Recommend that you continue to take all of your medications as directed. Also recommend that you contact your primary care doctor for a follow-up. Return the emergency department new or worsening symptoms. Prescriptions: No Action aspirin 81 mg tablet,delayed release (DR/EC) 81 mg PO DAILY mirtazapine 7.5 mg tablet 7.5 mg PO DAILY lisinopril 40 mg Tablet 40 mg PO DAILY diltiazem HCl 120 mg Capsule,Extended Release 24 Hr 180 mg PO DAILY latanoprost 0.005 % Drops 1 drp OPHTHALMIC (EYE) DAILY Rx Instructions: R eye only calcium phos,dibas-vitamin D3 77-400 mg-unit Tablet 1 tab PO DAILY pantoprazole 40 mg Tablet,Delayed Release (Dr/Ec) 40 mg PO 0700,2100 Qty: 60 0RF ferrous sulfate 325 mg (65 mg iron) Tablet 325 mg PO BIDWM Qty: 60 0RF Xarelto 20 mg tablet 20 mg PO DAILY Referrals: Anish Reyes ARNP [Primary Care Provider] - Stand Alone Forms: Patient Portal/API
[2024-02-27] MEDS: MAGNESIUM SULFATE 2 GM/50 ML PIGGYBACK IV (14:37)
[2024-02-27] MEDS: SODIUM CHLORIDE 0.9% 1,000 ML 1000 ML IV (14:37)
[2024-02-27 14:39] LABS: Add Manual Diff / Slide Review NO; Basophils Absolute Auto 0 /uL (0-100); Basophils Percent Auto 0.6 % (0-2); Eosinophils Absolute Auto 0 /uL (0-450); Eosinophils Percent Auto 0.7 % (2-4); Hemoglobin 10.4 g/dL (13.5-17.5); Lymphocytes Absolute Auto 600 /uL (1100-4500); Lymphocytes Percent Auto 12.5 % (25-40); Mean Corpuscular HGB Conc 32.6 % (30-36); Mean Corpuscular Hemoglobin 28.6 PG (26-34); Mean Corpuscular Volume 87.8 fL (80-100); Monocytes Absolute Auto 500 /uL (0-900); Monocytes Percent Auto 11.4 % (3-14); Neutrophils Absolute Auto 3500 /uL (1500-7000); Neutrophils Percent Auto 74.8 % (50-75); Platelet Count 68 X10^3/uL (150-400); Red Blood Cell Count 3.64 X10^6/uL (4.5-5.9); Red Cell Distribution Width 16.3 % (11.6-14.8); White Blood Cell Count 4.7 X10^3/uL (4.5-11.0)
[2024-02-27] MEDS: PANTOPRAZOLE 40 MG VIAL IV (14:40)
[2024-02-27 14:46] LABS: INR 1.3 (0.9-1.3); Prothrombin Time 15.4 SECONDS (9.4-12.5)
[2024-02-27 14:49] LABS: Alanine Aminotransferase 34 IU/L (<50); Albumin 3.8 g/dL (3.5-5.0); Albumin Globulin Ratio 1.2 (1.0-2.8); Alkaline Phosphatase 132 U/L (38-126); Aspartate Aminotransferase 89 IU/L (17-59); BUN Creatinine Ratio 15.6 (6-22); Blood Urea Nitrogen 12 mg/dL (9-20); Carbon Dioxide 20 mmol/L (22-32); Chloride 100 mmol/L (98-107); Creatine Kinase 41 U/L (55-170); Estimated Glomerular Filt Rate > 60 mL/min (>60); Globulin 3.2 g/dL (1.7-4.1); Glucose 135 mg/dL (80-110); HEMOLYSIS 41 (0-50); Lipase 294 U/L (23-300); Magnesium 1.3 mg/dL (1.6-2.3); PTT Partial Thromboplastin Tim 35 SECONDS (25.1-36.5); Potassium 3.8 mmol/L (3.4-5.1); Sodium 129 mmol/L (137-145)
[2024-02-27 15:01] LABS: NT-proBNP (BNP-Adult 18+) 379 pg/mL (<125); Troponin I 0.012 ng/mL (0.01-0.034)
--- NOTE | 2024-02-27 15:06 | EKG_ITS ---
[address] [address] Test Date: 2024-02-27 Pat Name: Alessandro Vazquez Department: Room: Gender: Male Ob/Gyn: SOLO : 1950 Requested By: Order Number: [id number] Reading MD: Ortega Graham Measurements Intervals [place] Rate: 145 P: 257 [place]: QRS: 60 QRSD: 84 T: -87 QT: 272 QTc: 422 Interpretive Statements Critical Test Result: High HR Atrial flutter with variable AV block with premature ventricular or aberrantly conducted complexes Possible Inferior infarct , age undetermined ST & T wave abnormality, consider lateral ischemia Electronically Signed On 02-28-2024 13:38:33 PDT by Ortega Graham
--- NOTE | 2024-02-27 15:09 | EKG_ITS ---
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
[2024-02-27] MEDS: dilTIAZem 25 MG/5 ML SDV 20 MG IV (15:21)
[2024-02-27] MEDS: dilTIAZem 25 MG/5 ML SDV IV (15:37)
--- NOTE | 2024-02-27 15:51 | DI.CT.S_ITS ---
PROCEDURE: CT ABDOMEN PELVIS W CON INDICATIONS: epigastric pain, nausea, vomting, hematemesis TECHNIQUE: After the administration of intravenous contrast, axial sections acquired from the lung bases to the pubic symphysis. Coronal and sagittal reformats were performed. For radiation dose reduction, the following was used: automated exposure control, adjustment of mA and/or kV according to patient size. COMPARISON: [facility], CT, CT CHEST ABD PEL W CON, 01/18/2023, 11:44. FINDINGS: Image quality: Diagnostic. Lower Chest: No significant findings. ABDOMEN: Liver: Liver overall appears coarsened with steatosis. Small scattered areas of calcification and low-attenuation foci are present. The smaller may represent simple cysts or hemangiomas and are relatively unchanged. Gallbladder: Multiple luminal stones without wall thickening. Biliary ducts: No biliary dilation. Pancreas: No ductal dilation. Spleen: Size is within normal limits. Splenic calcifications are present. Adrenal Glands: No adrenal nodules. Kidneys and Ureters: No hydronephrosis. No solid mass. No complex renal cystic lesion which requires follow up. Nonobstructing stable renal calculi. Stomach and Bowel: Normal colonic caliber, without significant wall thickening. Hiatal hernia. Scattered diverticula without inflammatory change. Unchanged 1.3 cm low-attenuation focus with fat density in the proximal small bowel series 2, image 65. It is unchanged. No obstruction. Peritoneum: No abnormal intraperitoneal fluid. No free air. Ventral Wall: No significant ventral hernia. Abdominal Nodes: No retroperitoneal or mesenteric adenopathy by size criteria. Vessels: Aorta and inferior vena cava are normal in size. PELVIS: Pelvic Organs: Unremarkable. Bladder: Better is incompletely distended with thickened wall and trabeculations. Pelvic Nodes: No enlarged lymph nodes. Miscellaneous: Fat containing inguinal hernias are seen. Bones: No aggressive osseous abnormality. IMPRESSION: Hiatal hernia. Presumed small bowel fat containing lipoma. Hepatic and splenic calcifications likely related to granulomatous exposure. Cholelithiasis without imaging appearance of cholecystitis. Dictated by: Lexi Diehl M.D. on 02/27/2024 at 16:31 Approved by: Lexi Diehl M.D. on 02/27/2024 at 16:38
[2024-02-27] MEDS: ONDANSETRON 4 MG/2 ML INJ IV (15:55)
--- NOTE | 2024-02-27 15:55 | PC.NURSE ---
1550: DI alerts SHERICE Smith and this RN patient is vomiting prior to CT while in their room. Provider Adryan made aware and new order for 4mg IV Zofran placed. Admin as per JUL. Provider Adryan checks on patient. Vitals taken by SHERICE Smith.
[2024-02-27] MEDS: dilTIAZem 125 MG in SODIUM CHLORIDE 0.9% 100 ML IV (16:21)
[2024-02-27] MEDS: METOPROLOL TARTRATE 5 MG/5 ML INJ IV (17:15)
--- NOTE | 2024-02-27 17:28 | PC.NURSE ---
Addendum entered by Sarah Olivo R.N. 02/27/24 17:30: reports seeing blood in vomit. Original Note: Dizziness. Reports mild abd pain earlier in the day. States he did not know when his heart rate shot up. HR 140s; aflutter
[2024-02-27 18:05] LABS: Troponin I 0.034 ng/mL (0.01-0.034)
--- NOTE | 2024-02-27 19:18 | EKG_ITS ---
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
[2024-02-27] MEDS: POTASSIUM CHLORIDE IN WATER 10 MEQ/100 ML PIGGYBACK 100 MEQ IV ×2 (21:12→22:17)
--- NOTE | 2024-02-27 21:54 | PC.NURSE ---
Addendum entered by Stanford Lara 02/27/24 22:05: [facility] ETA 0650 02/28/24 for arrival at 0845 Original Note: Accepted [facility] By Dr Parkinson (hospitalist) Report [phone] Pt to arrive at facility after 0800
[2024-02-28] VITALS (26 sets, daily range): BP systolic 90–119; BP diastolic 50–59; PULSE 62–75; RESP 9–16; O2SAT 94–98
--- NOTE | 2024-02-28 01:43 | EKG_ITS ---
[address] [address] Test Date: 2024-02-28 Pat Name: Alessandro Vazquez Department: 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
[2024-02-28] MEDS: dilTIAZem SR 60 MG 180 MG PO (02:03)
--- NOTE | 2024-02-28 02:12 | PC.NURSE ---
0138: patient's telemetry was showing NSR on the monitor. This nurse and Berenice RN in pt's room assessing patient. Dr. Cano notified 0140: new order for EKG ordered by Dr. Cano. EKG done- shows NSR. Patient lying in gurney, vital signs stable, call light in reach.
--- NOTE | 2024-02-28 02:36 | PC.NURSE ---
Verbal order from Dr. Cano to pause the diltiazem drip. Drip paused at 0236.
--- NOTE | 2024-02-28 05:19 | PC.NURSE ---
Patient ambulated around the unit with portable telemetry. Stayed in NSR the whole time and HR 83. Spo2 96% room air. Denies CP, SOB, or palpitations Dr. Cano aware.
--- NOTE | 2024-02-28 06:57 | PC.NURSE ---
Pt converted to normal sinus rhythm and was able to be discharged home instead of being transferred to . [facility] and transport and bed cancelled
== END 2024-02-28 06:37 | disposition home or self-care (01) ==
PROVIDERS: Student in an Organized Health Care Education/Training Program; Emergency Provider Emergency Medicine; Family Provider Nurse Practitioner Family; PCP Nurse Practitioner Family
DX: I48.92 Unspecified atrial flutter (principal); K92.0 Hematemesis; R07.9 Chest pain, unspecified; R10.13 Epigastric pain; R00.0 Tachycardia, unspecified; Z79.01 Long term (current) use of anticoagulants
CPT/HCPCS: 36415; 71045; 74177; 80053; 82550; 83690; 83735; 83880; 84484; 85025; 85610; 85730; 86850; 86900; 86901; 93005; 96365; 96366; 96367; 96375; 99284; 99291; 99292; J2405; J2470; J3475; Q9967